=== PATIENT | male | born 1985 | race Caucasian/White ===

== ENCOUNTER 2016-03-07 23:21 | Emergency (ER) | payer OTHER ==
[~2016-03-07] VITALS: Ht 182.9 cm; Wt 86.0 kg
[~2016-03-07 23:21] MED LIST: ABIL5TAB6 PO; AMLO10 PO; CARV6.25 PO; DEPA500T3 PO; DIVA500T3 PO; ESCI10TA PO; IBUP-232 PO; QUET1TAB7 PO; QUET1TAB9 PO; WALKER/ADULT/FO1 MIS; WELL200T PO
[2016-03-07 23:23] VITALS: BP 162/100; PULSE 102; RESP 18; TEMP 98.1; O2SAT 99
[2016-03-08 03:19] LABS: BARBITURATES, URINE NEG (NEG)
[2016-03-08 03:22] LABS: AMPHETAMINE, URINE NEG (NEG); COCAINE, URINE NEG (NEG)
[2016-03-08 03:26] LABS: AUTOMATED NEUTROPHIL # 6.9 TH/MM3 (1.8-7.7); BASOPHIL # 0.1 TH/MM3 (0-0.2); BASOPHIL % 0.8 % (0.0-2.0); EOSINOPHIL # 0.3 TH/MM3 (0-0.4); EOSINOPHIL % 3.2 % (0.0-4.0); HEMO FLAGS DIFF FINAL; LYMPH % 23.7 % (9.0-44.0); LYMPHOCYTE # 2.5 TH/MM3 (1.0-4.8); MEAN CELL VOLUME 86.1 FL (80.0-100.0); MEAN CORPUSCULAR HEMOGLOBIN 29.7 PG (27.0-34.0); MEAN CORPUSCULAR HGB CONC 34.5 % (32.0-36.0); MONO % 6.3 % (0.0-8.0); PLATELET COUNT 316 TH/MM3 (150-450); RED BLOOD COUNT 4.99 MIL/MM3 (4.50-5.90); RED CELL DISTRIBUTION WIDTH 13.3 % (11.6-17.2); WHITE BLOOD COUNT 10.5 TH/MM3 (4.0-11.0)
[2016-03-08 03:30] LABS: ALT (GPT) 18 U/L (12-78); ANION GAP 10 MEQ/L (5-15); AST (GOT) 11 U/L (15-37); BICARBONATE 25.3 MEQ/L (21.0-32.0); BLOOD UREA NITROGEN 11 MG/DL (7-18); CHLORIDE 103 MEQ/L (98-107); GLOMERULAR FILTRATION RATE 64 ML/MIN (>89); POTASSIUM 3.8 MEQ/L (3.5-5.1); SODIUM (NA) 138 MEQ/L (136-145)
[2016-03-08 03:32] LABS: ALKALINE PHOSPHATASE 337 U/L (45-117); TOTAL BILIRUBIN ADULT 0.4 MG/DL (0.2-1.0)
[2016-03-08 03:52] VITALS: BP 151/91; PULSE 78; RESP 18; O2SAT 98
--- NOTE | 2016-03-08 04:28 | PD ---
HPI Chief Complaint: Depression Time Seen by Provider: 04:20 Travel History International Travel<30 days: No Contact w/Intl Traveler<30days: No Traveled to known affect area: No History of Present Illness HPI 30-year-old male presents for evaluation of depression, suicidal ideation. He has a history of depression. He has been feeling increasingly depressed over the past 2 days, having thoughts of jumping in front of a car. He reports that he is prescribed Depakote, Seroquel and he has been using as prescribed however he has no outpatient psychiatry follow-up at the moment. Denies any drug or alcohol use. Denies recent illness. No other complaints. PFSH Past Medical History Hx Anticoagulant Therapy: No ADHD: Yes Arthritis: No Autoimmune Disease: No Bipolar Disorder: Yes Anxiety: Yes Depression: Yes Heart Rhythm Problems: No Cancer: No Cardiovascular Problems: Yes (HTN) High Cholesterol: No Chemotherapy: No Chest Pain: No Congestive Heart Failure: No Cerebrovascular Accident: No Diabetes: No Diminished Hearing: No Genitourinary: No Headaches: No Hypertension: Yes Musculoskeletal: No Neurologic: No Psychiatric: Yes (Hx of treatment for Bipolar Disorder) Reproductive: No Respiratory: No Migraines: No Seizures: Yes Influenza Vaccination: No Past Surgical History Abdominal Surgery: No Cardiac Surgery: No Ear Surgery: No Endocrine Surgery: No Eye Surgery: No Genitourinary Surgery: No Gynecologic Surgery: No Hysterectomy: No Neurologic Surgery: No Oral Surgery: No Thoracic Surgery: No Other Surgery: Yes (pins in right femur ) Social History Alcohol Use: No Tobacco Use: Yes Substance Use: No Allergies-Medications (Allergen,Severity, Reaction): Coded Allergies: No Known Allergies (Verified , 03/08/16) Reported Meds & Prescriptions Reported Meds & Active Scripts Active Quetiapine (Quetiapine Fumarate) 200 Mg Tab 400 Mg PO HS Depakote ER (Divalproex Sodium) 500 Mg Jose 500 Mg PO BID Escitalopram (Escitalopram Oxalate) 10 Mg Tab 5 Mg PO DAILY Coreg (Carvedilol) 6.25 Mg Tab 6.25 Mg PO Q12HR Norvasc (Amlodipine Besylate) 10 Mg Tab 10 Mg PO DAILY 30 Days Reported Wellbutrin SR 12 HR (Bupropion HCl) 200 Mg Tab 200 Mg PO BID Review of Systems Except as stated in HPI: all other systems reviewed are Neg Physical Exam Narrative GENERAL: Well-developed well-nourished male in no acute distress resting complaint hospital bed SKIN: Warm and dry. HEAD: Atraumatic. Normocephalic. EYES: Pupils equal and round. No scleral icterus. No injection or drainage. ENT: No nasal bleeding or discharge. Mucous membranes pink and moist. NECK: Trachea midline. No JVD. CARDIOVASCULAR: Regular rate and rhythm. No murmur appreciated. RESPIRATORY: No accessory muscle use. Clear to auscultation. Breath sounds equal bilaterally. GASTROINTESTINAL: Abdomen soft, non-tender, nondistended. MUSCULOSKELETAL: No obvious deformities. No clubbing. No cyanosis. No edema. NEUROLOGICAL: Awake and alert. No obvious cranial nerve deficits. Motor grossly within normal limits. Normal speech. PSYCHIATRIC: Appropriate mood and affect; insight and judgment normal. Data Data Last Documented VS Vital Signs Date Time Temp Pulse Resp B/P Pulse Ox O2 Delivery O2 Flow Rate FiO2 03/08/16 03:52 78 18 151/91 98 Room Air 03/07/16 23:23 98.1 Orders Complete Blood Count With Diff (03/08/16 02:31) Comprehensive Metabolic Panel (03/08/16 02:31) Drug Screen, Random Urine (03/08/16 02:31) Alcohol (Ethanol) (03/08/16 02:31) Psych Screen (03/08/16 02:31) Lisinopril (Prinivil) (03/08/16 04:30) Labs Laboratory Tests Test 03/08/16 03/08/16 02:40 02:46 White Blood Count 10.5 TH/MM3 Red Blood Count 4.99 MIL/MM3 Hemoglobin 14.8 GM/DL Hematocrit 43.0 % Mean Corpuscular Volume 86.1 FL Mean Corpuscular Hemoglobin 29.7 PG Mean Corpuscular Hemoglobin 34.5 % Concent Red Cell Distribution Width 13.3 % Platelet Count 316 TH/MM3 Mean Platelet Volume 8.2 FL Neutrophils (%) (Auto) 66.0 % Lymphocytes (%) (Auto) 23.7 % Monocytes (%) (Auto) 6.3 % Eosinophils (%) (Auto) 3.2 % Basophils (%) (Auto) 0.8 % Neutrophils # (Auto) 6.9 TH/MM3 Lymphocytes # (Auto) 2.5 TH/MM3 Monocytes # (Auto) 0.7 TH/MM3 Eosinophils # (Auto) 0.3 TH/MM3 Basophils # (Auto) 0.1 TH/MM3 CBC Comment DIFF FINAL Differential Comment Sodium Level 138 MEQ/L Potassium Level 3.8 MEQ/L Chloride Level 103 MEQ/L Carbon Dioxide Level 25.3 MEQ/L Anion Gap 10 MEQ/L Blood Urea Nitrogen 11 MG/DL Creatinine 1.30 MG/DL Estimat Glomerular Filtration 64 ML/MIN Rate Random Glucose 119 MG/DL Calcium Level 8.5 MG/DL Total Bilirubin 0.4 MG/DL Aspartate Amino Transf 11 U/L (AST/SGOT) Alanine Aminotransferase 18 U/L (ALT/SGPT) Alkaline Phosphatase 337 U/L Total Protein 7.2 GM/DL Albumin 3.5 GM/DL Ethyl Alcohol Level LESS THAN 3 MG/DL Urine Opiates Screen NEG Urine Barbiturates Screen NEG Urine Amphetamines Screen NEG Urine Benzodiazepines Screen NEG Urine Cocaine Screen NEG Urine Cannabinoids Screen NEG MDM Medical Decision Making Medical Screen Exam Complete: Yes Emergency Medical Condition: Yes Medical Record Reviewed: Yes Differential Diagnosis Major depressive disorder, acute psychosis, medication noncompliance, malingering, substance induced mood disorder Narrative Course 30-year-old male presents voluntarily for psychiatric evaluation of suicidal ideation. Mental health screening discussed with the patient. Psychiatric screen ordered. The patient is medically cleared for psychiatric disposition Diagnosis Primary Impression: Depression Qualified Code: F32.9 - Depression, unspecified depression type Emir Zeng Mar 08, 2016 04:28
[2016-03-08] MEDS ORDERED: LISINOPRIL 5 MG TAB PO ONE (04:30)
[2016-03-08 08:00] VITALS: BP 130/81; PULSE 76; RESP 16; TEMP 98.2; O2SAT 99
== END 2016-03-08 10:03 | disposition left against medical advice (07) ==
LOC: NEPA 23:21
DX: F32.9 Major depressive disorder, single episode, unspecified (principal)
CPT/HCPCS: 80053; 80307; 80320; 85025; 99284

== ENCOUNTER 2016-06-02 13:25 | Emergency (ER) | payer OTHER ==
[~2016-06-02] VITALS: Ht 177.8 cm; Wt 85.0 kg
[~2016-06-02 13:25] MED LIST changes: -ABIL5TAB6 PO; -DIVA500T3 PO; -IBUP-232 PO; -QUET1TAB7 PO; -WALKER/ADULT/FO1 MIS
[2016-06-02 13:27] VITALS: BP 132/88; PULSE 88; RESP 20; TEMP 97.4; O2SAT 95
--- NOTE | 2016-06-02 15:15 | PD ---
HPI Chief Complaint: Suicide Ideation/Attempt Time Seen by Provider: 15:15 Travel History International Travel<30 days: No Contact w/Intl Traveler<30days: No Traveled to known affect area: No History of Present Illness HPI 30-year-old male with a history of bipolar disorder and depression presents to the emergency department requesting psychiatric evaluation. States that he has had suicidal ideations. States he is taking psych medications but is unsure if they're working for him. He denies any attempts to harm himself. Denies any ingestion of substances in an attempt to harm himself. He denies any medical complaints. Denies alcohol or drug use. Denies any chest pain, shortness of breath, abdominal pain, nausea, vomiting, headache, dizziness. No obvious or visual hallucinations. No other complaints. PFSH Past Medical History Hx Anticoagulant Therapy: No ADHD: Yes Arthritis: No Autoimmune Disease: No Bipolar Disorder: Yes Anxiety: Yes Depression: Yes Heart Rhythm Problems: No Cancer: No Cardiovascular Problems: Yes (HTN) High Cholesterol: No Chemotherapy: No Chest Pain: No Congestive Heart Failure: No Cerebrovascular Accident: No Diabetes: No Diminished Hearing: No Genitourinary: No Headaches: No Hypertension: Yes Musculoskeletal: No Neurologic: No Psychiatric: Yes (Hx of treatment for Bipolar Disorder) Reproductive: No Respiratory: No Migraines: No Seizures: Yes Past Surgical History Abdominal Surgery: No Cardiac Surgery: No Ear Surgery: No Endocrine Surgery: No Eye Surgery: No Genitourinary Surgery: No Gynecologic Surgery: No Hysterectomy: No Neurologic Surgery: No Oral Surgery: No Thoracic Surgery: No Other Surgery: Yes (pins in right femur ) Social History Alcohol Use: No Tobacco Use: Yes Substance Use: No Allergies-Medications (Allergen,Severity, Reaction): Coded Allergies: No Known Allergies (Verified , 03/08/16) Reported Meds & Prescriptions Reported Meds & Active Scripts Active Quetiapine (Quetiapine Fumarate) 200 Mg Tab 400 Mg PO HS Depakote ER (Divalproex Sodium) 500 Mg Jose 500 Mg PO BID Escitalopram (Escitalopram Oxalate) 10 Mg Tab 5 Mg PO DAILY Coreg (Carvedilol) 6.25 Mg Tab 6.25 Mg PO Q12HR Norvasc (Amlodipine Besylate) 10 Mg Tab 10 Mg PO DAILY 30 Days Reported Wellbutrin SR 12 HR (Bupropion HCl) 200 Mg Tab 200 Mg PO BID Review of Systems Except as stated in HPI: all other systems reviewed are Neg Physical Exam Narrative GENERAL: Well-nourished and well-developed male patient in no acute distress who is nontoxic appearing. SKIN: Warm and dry. HEAD: Normocephalic and atraumatic. EYES: No injection, drainage, or hyphema noted. PERRLA. EOMI. ENT: No nasal drainage noted. Oropharynx is clear. NECK: Supple and the trachea is midline. CARDIOVASCULAR: Regular rate and rhythm. RESPIRATORY: Breath sounds are equal bilaterally with no accessory muscle use, wheezing, rhonchi, or crackles. GASTROINTESTINAL: Abdomen is soft, non-tender, and nondistended. MUSCULOSKELETAL: No obvious deformities, swelling, cyanosis, or ecchymosis is present throughout the upper and lower extremities. Patient has full range of motion without any signs of neurovascular compromise. NEUROLOGICAL: Awake, alert, and oriented. Normal speech and gait. Cranial nerves are grossly intact. Data Data Last Documented VS Vital Signs Date Time Temp Pulse Resp B/P Pulse Ox O2 Delivery O2 Flow Rate FiO2 06/02/16 13:27 97.4 88 20 132/88 95 Room Air Orders Complete Blood Count With Diff (06/02/16 14:17) Comprehensive Metabolic Panel (06/02/16 14:17) Psych Screen (06/02/16 14:17) Drug Screen, Random Urine (06/02/16 14:17) Alcohol (Ethanol) (06/02/16 14:17) Diet Regular Basic (06/02/16 Dinner) [facility] Medical Decision Making Medical Screen Exam Complete: Yes Emergency Medical Condition: Yes Differential Diagnosis Differential: Depression versus adjustment reaction versus anxiety versus PTSD versus psychosis NOS versus mood disorder NOS versus substance induced mood disorder versus ODD versus adjustment reaction versus schizophrenia versus bipolar disorder versus schizoaffective Narrative Course Patient presents voluntarily for psychiatric evaluation. Physical examination and vital signs are essentially unremarkable. Patient has no medical complaints to report. Psych screen has been ordered. If the laboratory results are unremarkable, the patient will be medically cleared for psychiatric evaluation and disposition. Diagnosis Primary Impression: Depression Qualified Code: F32.9 - Depression, unspecified depression type Yelena Huerta Jun 02, 2016 15:15
--- NOTE | 2016-06-02 15:28 | PD ---
History of Present Illness Chief Complaint: Suicide Ideation/Attempt Time Seen by Provider: 15:15 Travel History International Travel<30 Days: No Contact w/Intl Traveler<30days: No Known affected area: No Legal Status Legal Status: Voluntary History of Present Illness: History of Present Illness HPI 30-year-old male with a history of bipolar disorder and substance use disorder who presents to the emergency department as a voluntary patient requesting psychiatric evaluation. He report that for the past 2 days he has been experiencing increase in suicidal ideation with plan of jumping in front of traffic. He reports feeling depressed with sleep impairment, reduced appetite and low level of energy. He is unable to identify any recent stressors. He provides conflicting information as to his psychiatric medication compliance. As per ED documentation he is currently taking his medications but he tells me he has not had medication in over 2 months and that he stopped his treatment because he felt he did not need it. He denies any attempts to harm himself. Denies any ingestion of substances in an attempt to harm himself. Denies alcohol or drug use and lab work is pending . EMR is reviewed. He presented to ED with complaints of depression on Mar 2016 but left AMA before a psychiatric screening was completed. His last psychiatric admission to [facility] was on January 152015 after an alleged suicide attempt by jumping in front of traffic in which he sustained several physical injuries. However Dr. Morrissey was asked to evaluate this patient after the accident to determine if the accident was a suicide attempt the patient denied that the accident was a suicide attempt and reported it was an unexpected accident. He then later reported that the accident was a suicide attempt. PFSH Past Medical History Hx Anticoagulant Therapy: No ADHD: Yes Arthritis: No Autoimmune Disease: No Bipolar Disorder: Yes Anxiety: Yes Depression: Yes Heart Rhythm Problems: No Cancer: No Cardiovascular Problems: Yes (HTN) High Cholesterol: No Chemotherapy: No Chest Pain: No Congestive Heart Failure: No Cerebrovascular Accident: No Diabetes: No Diminished Hearing: No Genitourinary: No Headaches: No Hypertension: Yes Musculoskeletal: No Neurologic: No Psychiatric: Yes (Hx of treatment for Bipolar Disorder) Reproductive: No Respiratory: No Migraines: No Seizures: Yes Past Surgical History Abdominal Surgery: No Cardiac Surgery: No Ear Surgery: No Endocrine Surgery: No Eye Surgery: No Genitourinary Surgery: No Gynecologic Surgery: No Hysterectomy: No Neurologic Surgery: No Oral Surgery: No Thoracic Surgery: No Other Surgery: Yes (pins in right femur ) Psychiatric History Psychiatric History Hx Psychiatric Treatment: Pt states he has a history of inpatient psychiatric hospitalizations through [facility] and [facility]. He repors a history of outpatient psychiatric services through [facility] though he has mixed compliance with appointments and medication as he states he stops when he "feels better". Pt states he does not feel his medication is working at this time. History of Inpatient Treatment: Yes Guns or firearms in home: No Social History Single male. Living at [facility]. Hx Alcohol Use: No Hx Tobacco Use: Yes Hx Substance Use: No Substance Use Type: Alcohol, Huffing, Other Other Substances Used: smoking 'K2' Hx of Substance Use Treatment: No Allergies-Medications (Allergen,Severity, Reaction): Coded Allergies: No Known Allergies (Verified , 03/08/16) Reported Meds & Prescriptions Reported Meds & Active Scripts Active Quetiapine (Quetiapine Fumarate) 200 Mg Tab 400 Mg PO HS Depakote ER (Divalproex Sodium) 500 Mg Jose 500 Mg PO BID Escitalopram (Escitalopram Oxalate) 10 Mg Tab 5 Mg PO DAILY Coreg (Carvedilol) 6.25 Mg Tab 6.25 Mg PO Q12HR Norvasc (Amlodipine Besylate) 10 Mg Tab 10 Mg PO DAILY 30 Days Reported Wellbutrin SR 12 HR (Bupropion HCl) 200 Mg Tab 200 Mg PO BID Review of Systems Constitutional: DENIES: Diaphoretic episodes, Fatigue, Fever, Weight gain, Weight loss, Chills, Dizziness, Change in appetite, Night Sweats Endocrine: DENIES: Heat/cold intolerance, Polydipsia, Polyuria, Polyphagia Ears, nose, mouth, throat: DENIES: Tinnitus, Hearing loss, Vertigo, Nasal discharge, Oral lesions, Throat pain, Hoarseness, Ear Pain, Running Nose, Epistaxis, Sinus Pain, Toothache, Odynophagia Cardiovascular: DENIES: Chest pain, Palpitations, Syncope, Dyspnea on Exertion , PND, Lower Extremity Edema, Orthopnea, Claudication Gastrointestinal: DENIES: Abdominal pain, Black stools, Bloody stools, Constipation, Diarrhea, Nausea, Vomiting, Difficulty Swallowing, Anorexia Genitourinary: DENIES: Sexual dysfunction, Urinary frequency, Urinary incontinence, Urgency, Hematuria, Dysuria, Nocturia, Penile Discharge, Testicular Pain, Testicular Swelling Musculoskeletal: COMPLAINS OF: Back pain, DENIES: Joint pain, Muscle aches, Stiffness, Joint Swelling, Neck pain Integumentary: DENIES: Abnormal pigmentation, Nail changes, Pruritus, Rash Hematologic/lymphatic: DENIES: Bruising, Lymphadenopathy Immunologic/allergic: DENIES: Eczema, Urticaria Neurologic: DENIES: Abnormal gait, Headache, Localized weakness, Paresthesias, Seizures, Speech Problems, Tremor, Poor Balance Psychiatric: COMPLAINS OF: Depression, Suicidal Ideation Exam Alert: Yes [place]: Person (ox4) Mood: Depressed Affect: Appropriate Speech: Clear, Logical Eye Contact: None (kept his head bowed) Memory Intact: Comment (no impairment) Hallucinations: Other (negative) Delusions: No Suicidal: Plan (to jump in front of traffic), Ideation Homicidal: Ideation (deneis) Insight/Judgement poor. poor MDM Medical Decision Making Medical Record Reviewed: Yes Assessment/Plan 30 year old male with hx of bipolar disorder and substance use disorder who presents voluntarily to [facility] with complaints of suicidal ideation with plan of jumping in front of traffic. He also reports increase in depression x 2 days. He stopped taking his medications 2 months ago. He denies any current drug use and toxicology is pending . At this time he will be placed on wait list for [facility] for treatment. 1900 Lab work resulted. Positive for cocaine and cannabinoid. Orders Complete Blood Count With Diff (06/02/16 14:17) Comprehensive Metabolic Panel (06/02/16 14:17) Psych Screen (06/02/16 14:17) Drug Screen, Random Urine (06/02/16 14:17) Alcohol (Ethanol) (06/02/16 14:17) Diet Regular Basic (06/02/16 Dinner) Results Vital Signs Date Time Temp Pulse Resp B/P Pulse Ox O2 Delivery O2 Flow Rate FiO2 06/02/16 13:27 97.4 88 20 132/88 95 Room Air Diagnosis Primary Impression: Bipolar disorder, most recent episode depressed Louann Stevens Jun 02, 2016 15:28
[2016-06-02 17:36] LABS: AUTOMATED NEUTROPHIL # 4.7 TH/MM3 (1.8-7.7); BASOPHIL # 0.1 TH/MM3 (0-0.2); BASOPHIL % 1.6 % (0.0-2.0); EOSINOPHIL # 0.9 TH/MM3 (0-0.4); EOSINOPHIL % 9.9 % (0.0-4.0); HEMATOCRIT 44.8 % (39.0-51.0); HEMO FLAGS DIFF FINAL; LYMPHOCYTE # 2.6 TH/MM3 (1.0-4.8); MEAN CELL VOLUME 86.1 FL (80.0-100.0); MEAN CORPUSCULAR HEMOGLOBIN 29.3 PG (27.0-34.0); MEAN CORPUSCULAR HGB CONC 34.1 % (32.0-36.0); MONO % 9.4 % (0.0-8.0); NEUT % 51.1 % (16.0-70.0); PLATELET COUNT 246 TH/MM3 (150-450); RED CELL DISTRIBUTION WIDTH 13.7 % (11.6-17.2); WHITE BLOOD COUNT 9.1 TH/MM3 (4.0-11.0)
[2016-06-02 17:40] LABS: AMPHETAMINE, URINE NEG (NEG); BARBITURATES, URINE NEG (NEG); COCAINE, URINE POS (NEG)
[2016-06-02 17:49] LABS: ALT (GPT) 23 U/L (12-78); ANION GAP 4 MEQ/L (5-15); AST (GOT) 19 U/L (15-37); BICARBONATE 32.2 MEQ/L (21.0-32.0); BLOOD UREA NITROGEN 15 MG/DL (7-18); CHLORIDE 106 MEQ/L (98-107); GLOMERULAR FILTRATION RATE 74 ML/MIN (>89); POTASSIUM 4.1 MEQ/L (3.5-5.1); SODIUM (NA) 142 MEQ/L (136-145)
[2016-06-02 17:52] LABS: ALKALINE PHOSPHATASE 124 U/L (45-117); TOTAL BILIRUBIN ADULT 0.3 MG/DL (0.2-1.0)
[2016-06-02 19:44] VITALS: BP 131/92; PULSE 83; RESP 17; O2SAT 96
[2016-06-03 02:01] VITALS: BP 139/99; PULSE 64; RESP 18; O2SAT 97
[2016-06-03 06:19] VITALS: BP_SYST 138; BP_DIAS 86; BP_DIAS 92; PULSE 74; RESP 18; TEMP 97.6; O2SAT 97
[2016-06-03 10:43] VITALS: BP 140/87; PULSE 68; RESP 18; O2SAT 98
--- NOTE | 2016-06-03 14:57 | HHI.PYPN ---
Subjective Remarks Patient seen and examined. Chart reviewed. Nurse practitioner Rodney's note reviewed. Case discussed with nurse in the [facility]. There has been no evidence of any suicidal or homicidal behavior while the patient has been under observation in the [facility], over 24 hours at this point. On my examination today , the patient admits that he malingered suicidal ideation saying "I came here because [facility] me to say I was suicidal to get detoxed. I'm not fucking suicidal." Patient denies any suicidal or homicidal ideation. Denies any audiovisual hallucinations. I can elicit no delusional beliefs. No depressive or hypomanic/manic symptoms. No reported withdrawal symptoms at this time. Review of Systems Except as stated in HPI: all other systems reviewed are Neg Objective Alert: Yes [place]: Person (once again ox4) Mood: Calm Affect: Appropriate Memory Intact: Comment (intact) Hallucinations: Other (denies AVH) Delusions: No Delusion Type: Other (no delusional material) Suicidal: Ideation (denies suicidal ideation, intent or plan) Homicidal: Ideation (denies homicidal ideation, intent or plan) Insight/Judgement Fair at best Remarks Thought process linear. Speech within normal limits for rate, tone and volume. No motor abnormalities noted. Labs Labs reviewed. Test 06/02/16 16:59 White Blood Count 9.1 TH/MM3 Red Blood Count 5.20 MIL/MM3 Hemoglobin 15.3 GM/DL Hematocrit 44.8 % Mean Corpuscular Volume 86.1 FL Mean Corpuscular Hemoglobin 29.3 PG Mean Corpuscular Hemoglobin 34.1 % Concent Red Cell Distribution Width 13.7 % Platelet Count 246 TH/MM3 Mean Platelet Volume 8.4 FL Neutrophils (%) (Auto) 51.1 % Lymphocytes (%) (Auto) 28.0 % Monocytes (%) (Auto) 9.4 % Eosinophils (%) (Auto) 9.9 % Basophils (%) (Auto) 1.6 % Neutrophils # (Auto) 4.7 TH/MM3 Lymphocytes # (Auto) 2.6 TH/MM3 Monocytes # (Auto) 0.9 TH/MM3 Eosinophils # (Auto) 0.9 TH/MM3 Basophils # (Auto) 0.1 TH/MM3 CBC Comment DIFF FINAL Differential Comment Sodium Level 142 MEQ/L Potassium Level 4.1 MEQ/L Chloride Level 106 MEQ/L Carbon Dioxide Level 32.2 MEQ/L Anion Gap 4 MEQ/L Blood Urea Nitrogen 15 MG/DL Creatinine 1.15 MG/DL Estimat Glomerular Filtration 74 ML/MIN Rate Random Glucose 83 MG/DL Calcium Level 8.5 MG/DL Total Bilirubin 0.3 MG/DL Aspartate Amino Transf 19 U/L (AST/SGOT) Alanine Aminotransferase 23 U/L (ALT/SGPT) Alkaline Phosphatase 124 U/L Total Protein 6.1 GM/DL Albumin 3.2 GM/DL Urine Opiates Screen NEG Urine Barbiturates Screen NEG Urine Amphetamines Screen NEG Urine Benzodiazepines Screen NEG Urine Cocaine Screen POS Urine Cannabinoids Screen POS Ethyl Alcohol Level LESS THAN 3 MG/DL Vitals/IOs Vital Signs Date Time Temp Pulse Resp B/P Pulse Ox O2 Delivery O2 Flow Rate FiO2 06/03/16 10:43 68 18 140/87 98 Room Air 06/03/16 06:19 97.6 Intake and Output 06/02/16 06/02/16 06/03/16 08:00 16:00 00:00 Output Total 320 ml Balance -320 ml Assessment & Plan Problem List: (1) Malingering ICD Code: Z76.5 (2) Polysubstance dependence ICD Code: F19.20 Assessment & Plan Patient admits to malingering suicidal ideation to obtain detoxification services. He now recants suicidal ideation. He denies suicidal or homicidal ideation, intent or plan at this time. No evidence of any unstable mood, anxiety or psychotic disorder in this patient at this time. He appears to be attending to his basic needs. Patient does not meet Vang act criteria. Patient does not require inpatient psychiatric hospitalization. Patient is requesting discharge from the ED. Patient is psychiatrically clear for discharge from the ED. Nurse to provide appropriate referrals. Patient to return to the psychiatric emergency room for any concerning psychiatric symptoms. Justification for Cont. Inpt. Psychiatrically clear for discharge from the ED. Daryl Cabrera MD Jun 03, 2016 14:57
== END 2016-06-03 16:49 | disposition home or self-care (01) ==
LOC: NEPJ 13:25
DX: F31.9 Bipolar disorder, unspecified (principal); Z79.899 Other long term (current) drug therapy
CPT/HCPCS: 80053; 80307; 85025; 99283

== ENCOUNTER 2016-06-23 15:53 | Emergency (ER) | payer OTHER ==
[~2016-06-23] VITALS: Ht 182.9 cm; Wt 90.0 kg
[2016-06-23 17:13] VITALS: BP 136/89; PULSE 83; RESP 18; TEMP 97.9; O2SAT 99
[2016-06-23 18:05] LABS: AUTOMATED NEUTROPHIL # 9.1 TH/MM3 (1.8-7.7); BASOPHIL % 0.4 % (0.0-2.0); EOSINOPHIL # 0.2 TH/MM3 (0-0.4); EOSINOPHIL % 1.9 % (0.0-4.0); HEMATOCRIT 49.1 % (39.0-51.0); HEMO FLAGS DIFF FINAL; LYMPH % 13.9 % (9.0-44.0); LYMPHOCYTE # 1.6 TH/MM3 (1.0-4.8); MEAN CELL VOLUME 87.6 FL (80.0-100.0); MEAN CORPUSCULAR HEMOGLOBIN 29.7 PG (27.0-34.0); MEAN CORPUSCULAR HGB CONC 33.9 % (32.0-36.0); NEUT % 78.8 % (16.0-70.0); PLATELET COUNT 235 TH/MM3 (150-450); RED BLOOD COUNT 5.61 MIL/MM3 (4.50-5.90); RED CELL DISTRIBUTION WIDTH 13.5 % (11.6-17.2); WHITE BLOOD COUNT 11.5 TH/MM3 (4.0-11.0)
--- NOTE | 2016-06-23 18:21 | PD ---
HPI Chief Complaint: Psychiatric Symptoms Time Seen by Provider: 17:20 Travel History International Travel<30 days: No Contact w/Intl Traveler<30days: No Traveled to known affect area: No History of Present Illness HPI Patient is a 30-year-old male brought in to emergency Department under Vang act for suicidal ideations. Patient was observed on a [employer] bus inhaling mcdaniel board pin cleaner. Patient isn't need of detox due to crack cocaine. He reported to the police that he is having suicidal thoughts coming off of the narcotic medications he was abusing. Patient reported that he has not had any crack cocaine in 10 days on the Vang act form he stated 5 days. Patient verbalized to me that he told them he was suicidal so that he did not go have to go to snf. Patient has a previous suicide attempt last year. He denies any suicidal or homicidal ideations at this time. He denies any visual auditory hallucinations. He does report a history of schizoaffective bipolar disorder type II. PFSH Past Medical History Hx Anticoagulant Therapy: No ADHD: Yes Arthritis: No Autoimmune Disease: No Bipolar Disorder: Yes Anxiety: Yes Depression: Yes Heart Rhythm Problems: No Cancer: No Cardiovascular Problems: Yes (HTN) High Cholesterol: No Chemotherapy: No Chest Pain: No Congestive Heart Failure: No Cerebrovascular Accident: No Diabetes: No Diminished Hearing: No Genitourinary: No Headaches: No Hypertension: Yes Implanted Vascular Access Dvce: Yes (INFUSAPORT RT CHEST/LT HAND OSTEOMYL) Musculoskeletal: Yes Neurologic: No Psychiatric: Yes Reproductive: No Respiratory: No Migraines: No Seizures: Yes Tetanus Vaccination: < 5 Years Influenza Vaccination: Yes Past Surgical History Abdominal Surgery: No Cardiac Surgery: No Ear Surgery: No Endocrine Surgery: No Eye Surgery: No Genitourinary Surgery: No Gynecologic Surgery: No Hysterectomy: No Joint Replacement: Yes (RT FEMUR) Neurologic Surgery: No Oral Surgery: No Thoracic Surgery: No Other Surgery: Yes (pins in right femur ) Social History Alcohol Use: No Tobacco Use: Yes (1PPD) Substance Use: Yes Allergies-Medications (Allergen,Severity, Reaction): Coded Allergies: Bee Sting (Verified Allergy, Unknown, 06/23/16) Reported Meds & Prescriptions Reported Meds & Active Scripts Active Quetiapine (Quetiapine Fumarate) 200 Mg Tab 400 Mg PO HS Depakote ER (Divalproex Sodium) 500 Mg Jose 500 Mg PO BID Escitalopram (Escitalopram Oxalate) 10 Mg Tab 5 Mg PO DAILY Coreg (Carvedilol) 6.25 Mg Tab 6.25 Mg PO Q12HR Norvasc (Amlodipine Besylate) 10 Mg Tab 10 Mg PO DAILY 30 Days Reported Wellbutrin SR 12 HR (Bupropion HCl) 200 Mg Tab 200 Mg PO BID Review of Systems Except as stated in HPI: all other systems reviewed are Neg Psychiatric: Positive: Suicidal Ideations, Mood Disorder, Substance Abuse Physical Exam Narrative GENERAL: Well-developed, well-nourished, alert male. Resting comfortably in no acute distress. SKIN: Focused skin assessment warm/dry. HEAD: Atraumatic. Normocephalic. EYES: Pupils equal and round. No scleral icterus. No injection or drainage. ENT: No nasal bleeding or discharge. Mucous membranes pink and moist. NECK: Trachea midline. No JVD. CARDIOVASCULAR: Regular rate and rhythm. No murmur appreciated. RESPIRATORY: No accessory muscle use. Clear to auscultation. Breath sounds equal bilaterally. GASTROINTESTINAL: Abdomen soft, non-tender, nondistended. Hepatic and splenic margins not palpable. MUSCULOSKELETAL: No obvious deformities. No clubbing. No cyanosis. No edema. NEUROLOGICAL: Awake and alert. No obvious cranial nerve deficits. Motor grossly within normal limits. Normal speech. PSYCHIATRIC: Flat mood and affect; insight and judgment normal. Data Data Last Documented VS Vital Signs Date Time Temp Pulse Resp B/P Pulse Ox O2 Delivery O2 Flow Rate FiO2 06/23/16 17:13 97.9 83 18 136/89 99 Orders Complete Blood Count With Diff (06/23/16 17:21) Comprehensive Metabolic Panel (06/23/16 17:21) Psych Screen (06/23/16 17:21) Drug Screen, Random Urine (06/23/16 17:21) Alcohol (Ethanol) (06/23/16 17:21) Salicylates (Aspirin) (06/23/16 17:21) Tylenol (Acetaminophen) (06/23/16 17:21) Diet Regular Basic (06/23/16 Dinner) Labs Laboratory Tests Test 06/23/16 06/23/16 17:36 17:51 Urine Opiates Screen NEG Urine Barbiturates Screen NEG Urine Amphetamines Screen NEG Urine Benzodiazepines Screen NEG Urine Cocaine Screen NEG Urine Cannabinoids Screen NEG White Blood Count 11.5 TH/MM3 Red Blood Count 5.61 MIL/MM3 Hemoglobin 16.7 GM/DL Hematocrit 49.1 % Mean Corpuscular Volume 87.6 FL Mean Corpuscular Hemoglobin 29.7 PG Mean Corpuscular Hemoglobin 33.9 % Concent Red Cell Distribution Width 13.5 % Platelet Count 235 TH/MM3 Mean Platelet Volume 9.0 FL Neutrophils (%) (Auto) 78.8 % Lymphocytes (%) (Auto) 13.9 % Monocytes (%) (Auto) 5.0 % Eosinophils (%) (Auto) 1.9 % Basophils (%) (Auto) 0.4 % Neutrophils # (Auto) 9.1 TH/MM3 Lymphocytes # (Auto) 1.6 TH/MM3 Monocytes # (Auto) 0.6 TH/MM3 Eosinophils # (Auto) 0.2 TH/MM3 Basophils # (Auto) 0.0 TH/MM3 CBC Comment DIFF FINAL Differential Comment Sodium Level 140 MEQ/L Potassium Level 4.4 MEQ/L Chloride Level 105 MEQ/L Carbon Dioxide Level 30.4 MEQ/L Anion Gap 5 MEQ/L Blood Urea Nitrogen 12 MG/DL Creatinine 1.25 MG/DL Estimat Glomerular Filtration 67 ML/MIN Rate Random Glucose 101 MG/DL Calcium Level 8.6 MG/DL Total Bilirubin 0.3 MG/DL Aspartate Amino Transf 16 U/L (AST/SGOT) Alanine Aminotransferase 25 U/L (ALT/SGPT) Alkaline Phosphatase 131 U/L Total Protein 7.1 GM/DL Albumin 3.6 GM/DL Salicylates Level LESS THAN 1.7 MG/DL Acetaminophen Level LESS THAN 2.0 MCG/ML Ethyl Alcohol Level LESS THAN 3 MG/DL MDM Medical Decision Making Medical Screen Exam Complete: Yes Emergency Medical Condition: Yes Interpretation(s) Vital Signs Date Time Temp Pulse Resp B/P Pulse Ox O2 Delivery O2 Flow Rate FiO2 06/23/16 17:13 97.9 83 18 136/89 99 Differential Diagnosis Mood disorder versus substance abuse versus suicidal ideations versus malingering versus other Narrative Course Patient is a 30-year-old male brought into the emergency department under Vang act for suicidal ideations. Patient is other physical complaints, vital signs are stable. Labs reviewed and are unremarkable. Urine drug screen is negative. Patient is medically cleared for psychiatric evaluation at this time. Diagnosis Primary Impression: Medical clearance for psychiatric admission Condition: Stable Nena SmithP Jun 23, 2016 18:21
[2016-06-23 18:29] LABS: ALT (GPT) 25 U/L (12-78); ANION GAP 5 MEQ/L (5-15); AST (GOT) 16 U/L (15-37); BICARBONATE 30.4 MEQ/L (21.0-32.0); BLOOD UREA NITROGEN 12 MG/DL (7-18); CHLORIDE 105 MEQ/L (98-107); GLOMERULAR FILTRATION RATE 67 ML/MIN (>89); POTASSIUM 4.4 MEQ/L (3.5-5.1); SODIUM (NA) 140 MEQ/L (136-145)
[2016-06-23 18:32] LABS: ACETAMINOPHEN LESS THAN 2.0 MCG/ML (10.0-30.0); ALKALINE PHOSPHATASE 131 U/L (45-117); TOTAL BILIRUBIN ADULT 0.3 MG/DL (0.2-1.0)
[2016-06-23 18:32] LABS: AMPHETAMINE, URINE NEG (NEG); BARBITURATES, URINE NEG (NEG); COCAINE, URINE NEG (NEG)
[2016-06-23 22:16] VITALS: BP 155/87; PULSE 77; RESP 19; O2SAT 98
[2016-06-24 10:14] VITALS: RESP 18
--- NOTE | 2016-06-24 11:28 | PD ---
History of Present Illness Chief Complaint: Psychiatric Symptoms Time Seen by Provider: 11:00 Travel History International Travel<30 Days: No Contact w/Intl Traveler<30days: No Known affected area: No Legal Status Legal Status: Vang Act Vang Act Signed By: Staci Mackey History of Present Illness: History of Present Illness HPI Patient is a 30-year-old male with history of bipolar disorder as well as substance use disorder who is brought in to emergency Department under Vang act initiated by [facility] for suicidal ideations. As per the report he was observed on a [employer] bus inhaling keyboard service line bus cleaner. He reported to the police that he is having suicidal thoughts coming off of the narcotic medications he was abusing. As per Ed documentation he admitted to ED provider that "he told them he was suicidal so that he did not go have to go to penitentiary" . Patient was discharged from [facility] on the morning that he was BA. [place]EN[place]. Patient was last evaluated by [facility] psychiatric dept on June 02, 2016 and his last hospitalization at [facility] was on Jan 15, 2017. Patient's current toxicology is positive for cannabinoids as well as cocaine. Patient was monitored in J pod and he presented no behavioral concerns and no suicidality. This morning he is alert and oriented. Speech is clear and logical. Once again he is consistent with stating " last night I had to tell the surgical endoscopist I was suicidal so that he would not take me to penitentiary. I am sorry I gave the nurse a hard time". He admits to using inhalants. He is requesting discharge as he has a place at [facility] where he has been for the last 2 months. At this time the patient does not present any hypomania or psychosis and no suicidal ideation. PFSH Past Medical History Hx Anticoagulant Therapy: No ADHD: Yes Arthritis: No Autoimmune Disease: No Bipolar Disorder: Yes Anxiety: Yes Depression: Yes Heart Rhythm Problems: No Cancer: No Cardiovascular Problems: Yes (HTN) High Cholesterol: No Chemotherapy: No Chest Pain: No Congestive Heart Failure: No Cerebrovascular Accident: No Diabetes: No Diminished Hearing: No Genitourinary: No Headaches: No Hypertension: Yes Implanted Vascular Access Dvce: Yes (INFUSAPORT RT CHEST/LT HAND OSTEOMYL) Musculoskeletal: Yes Neurologic: No Psychiatric: Yes Reproductive: No Respiratory: No Migraines: No Seizures: Yes Tetanus Vaccination: < 5 Years Influenza Vaccination: Yes Past Surgical History Abdominal Surgery: No Cardiac Surgery: No Ear Surgery: No Endocrine Surgery: No Eye Surgery: No Genitourinary Surgery: No Gynecologic Surgery: No Hysterectomy: No Joint Replacement: Yes (RT FEMUR) Neurologic Surgery: No Oral Surgery: No Thoracic Surgery: No Other Surgery: Yes (pins in right femur ) Psychiatric History Psychiatric History Hx Psychiatric Treatment: Pt states he has a history of inpatient psychiatric hospitalizations through [facility] and [facility]. He reporst a history of outpatient psychiatric services through [facility] . History of Inpatient Treatment: Yes Guns or firearms in home: No Social History Single male. Lives in [facility]. Hx Alcohol Use: No Hx Tobacco Use: Yes (1PPD) Hx Substance Use: Yes Substance Use Type: Alcohol, Huffing, Other Other Substances Used: HAS A HISTORY OF SUBSTANCE ABUSE Hx of Substance Use Treatment: Yes Family Psychiatric History none Allergies-Medications (Allergen,Severity, Reaction): Coded Allergies: Bee Sting (Verified Allergy, Unknown, 06/23/16) Reported Meds & Prescriptions Reported Meds & Active Scripts Active Quetiapine (Quetiapine Fumarate) 200 Mg Tab 400 Mg PO HS Depakote ER (Divalproex Sodium) 500 Mg Jose 500 Mg PO BID Reported Wellbutrin SR 12 HR (Bupropion HCl) 200 Mg Tab 200 Mg PO BID Review of Systems Except as stated in HPI: all other systems reviewed are Neg Exam Alert: Yes [place]: Person (ox4) Mood: Calm Affect: Appropriate Speech: Clear, Logical Eye Contact: Normal Memory Intact: Comment (no impairmetn) Hallucinations: Other (none) Delusions: No Suicidal: Ideation (denies any) Homicidal: Ideation (denies any) Insight/Judgement poor. poor. [facility] Medical Decision Making Medical Record Reviewed: Yes Assessment/Plan 30 year old male with hx of substance abuse as well as bipolar disorder who is under a BA as a result of having been seen inhaling keyboard service line bus cleaner while on a public bus. he admits to having lied to the police in order to avoid legal action. Patient has no suicidal ideation and does not meet BA criteria. he is requesting discharge . Will lift BA. Return to [facility]. Orders Complete Blood Count With Diff (06/23/16 17:21) Comprehensive Metabolic Panel (06/23/16 17:21) Psych Screen (06/23/16 17:21) Drug Screen, Random Urine (06/23/16 17:21) Alcohol (Ethanol) (06/23/16 17:21) Salicylates (Aspirin) (06/23/16 17:21) Tylenol (Acetaminophen) (06/23/16 17:21) Diet Regular Basic (06/23/16 Dinner) Diet Regular Basic (06/24/16 Breakfast) Diet Regular Basic (06/24/16 Lunch) Results Vital Signs Date Time Temp Pulse Resp B/P Pulse Ox O2 Delivery O2 Flow Rate FiO2 06/24/16 10:14 18 Room Air 06/23/16 22:16 77 19 155/87 98 06/23/16 17:13 97.9 83 18 136/89 99 Laboratory Tests Test 06/23/16 06/23/16 17:36 17:51 Urine Opiates Screen NEG Urine Barbiturates Screen NEG Urine Amphetamines Screen NEG Urine Benzodiazepines Screen NEG Urine Cocaine Screen NEG Urine Cannabinoids Screen NEG White Blood Count 11.5 Red Blood Count 5.61 Hemoglobin 16.7 Hematocrit 49.1 Mean Corpuscular Volume 87.6 Mean Corpuscular Hemoglobin 29.7 Mean Corpuscular Hemoglobin 33.9 Concent Red Cell Distribution Width 13.5 Platelet Count 235 Mean Platelet Volume 9.0 Neutrophils (%) (Auto) 78.8 Lymphocytes (%) (Auto) 13.9 Monocytes (%) (Auto) 5.0 Eosinophils (%) (Auto) 1.9 Basophils (%) (Auto) 0.4 Neutrophils # (Auto) 9.1 Lymphocytes # (Auto) 1.6 Monocytes # (Auto) 0.6 Eosinophils # (Auto) 0.2 Basophils # (Auto) 0.0 CBC Comment DIFF FINAL Differential Comment Sodium Level 140 Potassium Level 4.4 Chloride Level 105 Carbon Dioxide Level 30.4 Anion Gap 5 Blood Urea Nitrogen 12 Creatinine 1.25 Estimat Glomerular Filtration 67 Rate Random Glucose 101 Calcium Level 8.6 Total Bilirubin 0.3 Aspartate Amino Transf 16 (AST/SGOT) Alanine Aminotransferase 25 (ALT/SGPT) Alkaline Phosphatase 131 Total Protein 7.1 Albumin 3.6 Salicylates Level LESS THAN 1.7 Acetaminophen Level LESS THAN 2.0 Ethyl Alcohol Level LESS THAN 3 Diagnosis Primary Impression: Substance abuse Additional Impression: Malingering Psychiatrically Cleared: Yes Med/ Other Pt Specific Info: No Change to Meds Disposition: 01 DISCHARGE HOME Condition: Stable Problem Qualifiers Louann Stevens Jun 24, 2016 11:28
== END 2016-06-24 13:21 | disposition home or self-care (01) ==
LOC: NEDAMB 15:53 → NEPJ 06-24 13:21
DX: F18.10 Inhalant abuse, uncomplicated (principal); F31.9 Bipolar disorder, unspecified
CPT/HCPCS: 80053; 80307; 85025; 99283

== ENCOUNTER 2016-12-24 00:54 | Emergency (ER) | payer SELFPAY ==
[~2016-12-24] VITALS: Ht 180.3 cm; Wt 85.0 kg
[~2016-12-24 00:54] MED LIST changes: -AMLO10 PO; -CARV6.25 PO; -ESCI10TA PO
[2016-12-24 01:12] VITALS: BP 137/88; PULSE 93; RESP 17; TEMP 99.1; O2SAT 97
[2016-12-24] MEDS ORDERED: LURA20TA PO (01:36)
--- NOTE | 2016-12-24 01:59 | RADRPT ---
EXAM DATE/TIME: 12/24/2016 01:40 [facility] COMPARISON: No previous studies available for comparison. INDICATIONS : Swelling and redness to left ankle MEDICAL HISTORY : None. SURGICAL HISTORY : Right Femur Wil ENCOUNTER: Initial ACUITY: 1 day PAIN SCORE: 7/10 LOCATION: Left Ankle FINDINGS: Three view exam was performed of the left ankle. The bony structures are in normal alignment. No ev idence of acute fracture or malalignment. There is soft tissue swelling over the lateral malleolus.. The ankle mortise is intact. No radiopaque foreign bodies are seen. Bony mineralization is normal. CONCLUSION: Soft tissue swelling over the lateral malleolus with no acute fracture or malalignmen radha Luna MD on December 24, 2016 at 1:57 Board Certified Radiologist. This report was verified electronically.
[2016-12-24 02:07] LABS: AUTOMATED NEUTROPHIL # 11.3 TH/MM3 (1.8-7.7); BASOPHIL # 0.1 TH/MM3 (0-0.2); BASOPHIL % 0.8 % (0.0-2.0); EOSINOPHIL # 0.4 TH/MM3 (0-0.4); EOSINOPHIL % 2.3 % (0.0-4.0); HEMO FLAGS DIFF FINAL; LYMPH % 13.8 % (9.0-44.0); LYMPHOCYTE # 2.2 TH/MM3 (1.0-4.8); MEAN CELL VOLUME 87.9 FL (80.0-100.0); MEAN CORPUSCULAR HGB CONC 35.3 % (32.0-36.0); MONO % 10.9 % (0.0-8.0); NEUT % 72.2 % (16.0-70.0); PLATELET COUNT 316 TH/MM3 (150-450); RED BLOOD COUNT 5.12 MIL/MM3 (4.50-5.90); RED CELL DISTRIBUTION WIDTH 12.9 % (11.6-17.2); WHITE BLOOD COUNT 15.7 TH/MM3 (4.0-11.0)
[2016-12-24 02:24] LABS: ALT (GPT) 26 U/L (12-78); ANION GAP 5 MEQ/L (5-15); AST (GOT) 50 U/L (15-37); BICARBONATE 32.1 MEQ/L (21.0-32.0); BLOOD UREA NITROGEN 20 MG/DL (7-18); CHLORIDE 101 MEQ/L (98-107); GLOMERULAR FILTRATION RATE 48 ML/MIN (>89); POTASSIUM 4.4 MEQ/L (3.5-5.1); SODIUM (NA) 138 MEQ/L (136-145)
[2016-12-24 02:26] LABS: ALKALINE PHOSPHATASE 98 U/L (45-117); TOTAL BILIRUBIN ADULT 0.9 MG/DL (0.2-1.0)
[2016-12-24 02:27] LABS: BLOOD, URINE MOD (NEG); COMMENT (UR) CULTURE INDICATED; CULTURE IF INDICATED CULTURE INDICATED; GLUCOSE,URINE NEG (NEG); KETONE, URINE NEG (NEG); NITRITE,URINE NEG (NEG); PH, URINE 5.5 (5.0-8.5); URINE COLOR YELLOW (YELLW/STRAW)
--- NOTE | 2016-12-24 02:28 | PD ---
HPI Chief Complaint: Psychiatric Symptoms Time Seen by Provider: 01:38 Travel History International Travel<30 days: No Contact w/Intl Traveler<30days: No History of Present Illness HPI Patient is a 31-year-old male that presented to the emergency Department voluntarily for psychiatric evaluation. Patient reports relapsing on heroin. He was kicked out of his assisted house 2 days ago of his drug use. He had been sober for 4 months prior. He reports left ankle pain, he states rolled his ankle today. This pain is a 6 out of 10 and states it's aching. He does not want any medication for pain. Patient states he is able to ambulate on it but limps. Patient reports feeling suicidal because he was kicked out of the assisted house and because of his current situation. PFSH Past Medical History Hx Anticoagulant Therapy: No ADHD: Yes Arthritis: No Autoimmune Disease: No Bipolar Disorder: Yes Anxiety: Yes Depression: Yes Heart Rhythm Problems: No Cancer: No Cardiovascular Problems: Yes (HTN) High Cholesterol: No Chemotherapy: No Chest Pain: No Congestive Heart Failure: No Cerebrovascular Accident: No Diabetes: No Diminished Hearing: No Genitourinary: No Headaches: No Hypertension: Yes Implanted Vascular Access Dvce: Yes (INFUSAPORT RT CHEST/LT HAND OSTEOMYL) Musculoskeletal: Yes Neurologic: No Psychiatric: Yes Reproductive: No Respiratory: No Migraines: No Seizures: Yes Past Surgical History Abdominal Surgery: No Cardiac Surgery: No Ear Surgery: No Endocrine Surgery: No Eye Surgery: No Genitourinary Surgery: No Gynecologic Surgery: No Hysterectomy: No Joint Replacement: Yes (RT FEMUR) Neurologic Surgery: No Oral Surgery: No Thoracic Surgery: No Other Surgery: Yes (pins in right femur ) Social History Alcohol Use: No Tobacco Use: No Substance Use: Yes (LAST USE 1 DAY AGO) Allergies-Medications (Allergen,Severity, Reaction): Coded Allergies: bee venom protein (honey bee) (Unverified Allergy, Unknown, 12/24/16) Reported Meds & Prescriptions Reported Meds & Active Scripts Active Reported Latuda (Lurasidone) 20 Mg Tab 20 Mg PO DAILY Review of Systems Except as stated in HPI: all other systems reviewed are Neg Musculoskeletal: Positive: Myalgias, Edema Psychiatric: Positive: Depression, Suicidal Ideations, Substance Abuse Physical Exam Narrative GENERAL: Developed, well-nourished, alert male. Resting comfortably in no acute distress. SKIN: Warm and dry. HEAD: Atraumatic. Normocephalic. EYES: Pupils equal and round. No scleral icterus. No injection or drainage. ENT: No nasal bleeding or discharge. Mucous membranes pink and moist. NECK: Trachea midline. No JVD. CARDIOVASCULAR: Regular rate and rhythm. RESPIRATORY: No accessory muscle use. Clear to auscultation. Breath sounds equal bilaterally. GASTROINTESTINAL: Abdomen soft, non-tender, nondistended. Hepatic and splenic margins not palpable. MUSCULOSKELETAL: Extremities without clubbing, cyanosis. No obvious deformities. Edema noted to the lateral aspect of left ankle. Mild ecchymosis noted to the lateral aspect of the left foot. NEUROLOGICAL: Awake and alert. No obvious cranial nerve deficits. Motor grossly within normal limits. Five out of 5 muscle strength in the arms and legs. Normal speech. PSYCHIATRIC: Appropriate mood and affect; insight and judgment normal. Data Data Last Documented VS Vital Signs Date Time Temp Pulse Resp B/P (MAP) Pulse Ox O2 Delivery O2 Flow Rate FiO2 12/24/16 01:12 99.1 93 17 137/88 (104) 97 Room Air Orders Orders Psych Screen (12/24/16 01:31) Complete Blood Count With Diff (12/24/16 01:37) Comprehensive Metabolic Panel (12/24/16 01:37) Urinalysis - C+S If Indicated (12/24/16 01:37) Drug Screen, Random Urine (12/24/16 01:37) Alcohol (Ethanol) (12/24/16 01:37) Salicylates (Aspirin) (12/24/16 01:37) Tylenol (Acetaminophen) (12/24/16 01:37) Ankle, Complete ([id number]) (12/24/16 ) Evaristo Bandage (12/24/16 02:08) Crutches (12/24/16 02:24) Urine Culture (12/24/16 01:54) Nitrofurantoin Monohyd Macrocr (Macrobid (12/24/16 02:45) Labs Laboratory Tests Test 12/24/16 01:54 White Blood Count 15.7 TH/MM3 Red Blood Count 5.12 MIL/MM3 Hemoglobin 15.9 GM/DL Hematocrit 45.0 % Mean Corpuscular Volume 87.9 FL Mean Corpuscular Hemoglobin 31.0 PG Mean Corpuscular Hemoglobin Concent 35.3 % Red Cell Distribution Width 12.9 % Platelet Count 316 TH/MM3 Mean Platelet Volume 7.8 FL Neutrophils (%) (Auto) 72.2 % Lymphocytes (%) (Auto) 13.8 % Monocytes (%) (Auto) 10.9 % Eosinophils (%) (Auto) 2.3 % Basophils (%) (Auto) 0.8 % Neutrophils # (Auto) 11.3 TH/MM3 Lymphocytes # (Auto) 2.2 TH/MM3 Monocytes # (Auto) 1.7 TH/MM3 Eosinophils # (Auto) 0.4 TH/MM3 Basophils # (Auto) 0.1 TH/MM3 CBC Comment DIFF FINAL Differential Comment Urine Color YELLOW Urine Turbidity CLEAR Urine pH 5.5 Urine Specific Lind 1.012 Urine Protein 100 mg/dL Urine Glucose (UA) NEG mg/dL Urine Ketones NEG mg/dL Urine Occult Blood MOD Urine Nitrite NEG Urine Bilirubin NEG Urine Urobilinogen LESS THAN 2.0 MG/DL Urine Leukocyte Esterase NEG Urine RBC 4 /hpf Urine WBC 6 /hpf Urine WBC Clumps RARE Microscopic Urinalysis Comment CULTURE INDICATED Blood Urea Nitrogen 20 MG/DL Creatinine 1.66 MG/DL Random Glucose 103 MG/DL Total Protein 7.9 GM/DL Albumin 3.9 GM/DL Calcium Level 8.8 MG/DL Alkaline Phosphatase 98 U/L Aspartate Amino Transf (AST/SGOT) 50 U/L Alanine Aminotransferase (ALT/SGPT) 26 U/L Total Bilirubin 0.9 MG/DL Sodium Level 138 MEQ/L Potassium Level 4.4 MEQ/L Chloride Level 101 MEQ/L Carbon Dioxide Level 32.1 MEQ/L Anion Gap 5 MEQ/L Estimat Glomerular Filtration Rate 48 ML/MIN Salicylates Level LESS THAN 1.7 MG/DL Urine Opiates Screen NEG Urine Barbiturates Screen NEG Urine Amphetamines Screen NEG Urine Benzodiazepines Screen NEG Urine Cocaine Screen POS Urine Cannabinoids Screen POS MDM Medical Decision Making Medical Screen Exam Complete: Yes Emergency Medical Condition: Yes Medical Record Reviewed: Yes Interpretation(s) Laboratory Tests Test 12/24/16 01:54 White Blood Count 15.7 TH/MM3 Red Blood Count 5.12 MIL/MM3 Hemoglobin 15.9 GM/DL Hematocrit 45.0 % Mean Corpuscular Volume 87.9 FL Mean Corpuscular Hemoglobin 31.0 PG Mean Corpuscular Hemoglobin Concent 35.3 % Red Cell Distribution Width 12.9 % Platelet Count 316 TH/MM3 Mean Platelet Volume 7.8 FL Neutrophils (%) (Auto) 72.2 % Lymphocytes (%) (Auto) 13.8 % Monocytes (%) (Auto) 10.9 % Eosinophils (%) (Auto) 2.3 % Basophils (%) (Auto) 0.8 % Neutrophils # (Auto) 11.3 TH/MM3 Lymphocytes # (Auto) 2.2 TH/MM3 Monocytes # (Auto) 1.7 TH/MM3 Eosinophils # (Auto) 0.4 TH/MM3 Basophils # (Auto) 0.1 TH/MM3 CBC Comment DIFF FINAL Differential Comment Urine Color YELLOW Urine Turbidity CLEAR Urine pH 5.5 Urine Specific Lind 1.012 Urine Protein 100 mg/dL Urine Glucose (UA) NEG mg/dL Urine Ketones NEG mg/dL Urine Occult Blood MOD Urine Nitrite NEG Urine Bilirubin NEG Urine Urobilinogen LESS THAN 2.0 MG/DL Urine Leukocyte Esterase NEG Urine RBC 4 /hpf Urine WBC 6 /hpf Urine WBC Clumps RARE Microscopic Urinalysis Comment CULTURE INDICATED Blood Urea Nitrogen 20 MG/DL Creatinine 1.66 MG/DL Random Glucose 103 MG/DL Total Protein 7.9 GM/DL Albumin 3.9 GM/DL Calcium Level 8.8 MG/DL Alkaline Phosphatase 98 U/L Aspartate Amino Transf (AST/SGOT) 50 U/L Alanine Aminotransferase (ALT/SGPT) 26 U/L Total Bilirubin 0.9 MG/DL Sodium Level 138 MEQ/L Potassium Level 4.4 MEQ/L Chloride Level 101 MEQ/L Carbon Dioxide Level 32.1 MEQ/L Anion Gap 5 MEQ/L Estimat Glomerular Filtration Rate 48 ML/MIN Salicylates Level LESS THAN 1.7 MG/DL Urine Opiates Screen NEG Acetaminophen Level LESS THAN 2.0 MCG/ML Urine Barbiturates Screen NEG Urine Amphetamines Screen NEG Urine Benzodiazepines Screen NEG Urine Cocaine Screen POS Urine Cannabinoids Screen POS Ethyl Alcohol Level LESS THAN 3 MG/DL Vital Signs Date Time Temp Pulse Resp B/P (MAP) Pulse Ox O2 Delivery O2 Flow Rate FiO2 12/24/16 01:12 99.1 93 17 137/88 (104) 97 Room Air Differential Diagnosis Mood disorder versus substance abuse versus metabolic abnormality versus sprain versus strain versus suicidal ideations versus other Narrative Course Patient is a 31-year-old male that presented to emergency department voluntarily for psychiatric evaluation secondary to substance abuse and suicidal ideations. He subsequently complained of left ankle pain, imaging is negative for acute fracture per shows soft tissue swelling on the lateral aspect. Patient will be placed in an Evaristo wrap, crutches were ordered should he be discharged. Patient refused pain medication. Urinalysis is consistent with a urinary tract infection, nitrofurantoin has been ordered. A prescription has been written BUN and creatinine slightly elevated like secondary to poor oral intake. Patient is advised to increase fluid intake. Urine drug screen is positive for cocaine and marijuana CBC with a white count of 13.7 with left shift. Likely due to urinary tract infection or inflammatory response. Patient is afebrile, he appears well, he has no physical complaints. Patient is medically clear for psychiatric evaluation at this time. Diagnosis Primary Impression: Medical clearance for psychiatric admission Additional Impressions: Ankle sprain Qualified Codes: S93.402A - Sprain of unspecified ligament of left ankle, initial encounter UTI (urinary tract infection) Qualified Codes: N39.0 - Urinary tract infection, site not specified; R31.9 - Hematuria, unspecified Polysubstance dependence Scripts Nitrofurantoin Monohydrate Macrocrystals (Nitrofurantoin Monohydrate Macrocrystals) 100 Mg Cap 100 MG PO BID for Infection, #14 CAP 0 Refills Prov: Nena Smith 12/24/16 Condition: Stable Nena Smith Dec 24, 2016 02:28
[2016-12-24] MEDS ORDERED: NITROFURANTOIN MONOHYD MACROCR 100 MG CAP PO ONE (02:45)
[2016-12-24 02:47] LABS: ACETAMINOPHEN LESS THAN 2.0 MCG/ML (10.0-30.0); ALCOHOL LESS THAN 3 MG/DL (0-5)
[2016-12-24] MEDS ORDERED: NITR100C4 PO (02:47)
[2016-12-24 06:14] VITALS: BP 116/64; PULSE 78; RESP 18; O2SAT 98
[2016-12-24] MEDS ORDERED: LURASIDONE 40 MG TAB PO ONE (12:30)
--- NOTE | 2016-12-24 12:37 | PD ---
History of Present Illness Chief Complaint: Psychiatric Symptoms Time Seen by Provider: 12:30 Travel History International Travel<30 Days: No Contact w/Intl Traveler<30days: No Known affected area: No Legal Status Legal Status: Voluntary History of Present Illness: History of Present Illness Patient is a 31-year-old male with history of substance use disorder as well as bipolar disorder that presented to the emergency Department voluntarily for psychiatric evaluation. Patient reports he relapsed and used heroin 2 days ago. His current toxicology is positive for cocaine as well as cannabinoids. As a result of his use of substances he was kicked out of his penitentiary house, [facility]. Patient reports feeling suicidal because he was kicked out of the penitentiary house and because of his current situation. He was monitored in j pod and exhibited no suicidality. Slept well and ate well. Review of EMR. Has had multiple visits to Ed as well as several admissions to [facility] psychiatry dept. He is alert, oriented. No signs of any psychosis, no rosalino. no paranoia. He denies current suicdal ideation and has plans on presenting himself to [facility] for detox once he is discharged from [facility]. He also wants to go back on his prescribed psychiatric medication. PFSH Past Medical History Hx Anticoagulant Therapy: No ADHD: Yes Arthritis: No Autoimmune Disease: No Bipolar Disorder: Yes Anxiety: Yes Depression: Yes Heart Rhythm Problems: No Cancer: No Cardiovascular Problems: Yes (HTN) High Cholesterol: No Chemotherapy: No Chest Pain: No Congestive Heart Failure: No Cerebrovascular Accident: No Diabetes: No Diminished Hearing: No Genitourinary: No Headaches: No Hypertension: Yes Implanted Vascular Access Dvce: Yes (INFUSAPORT RT CHEST/LT HAND OSTEOMYL) Musculoskeletal: Yes Neurologic: No Psychiatric: Yes Reproductive: No Respiratory: No Migraines: No Seizures: Yes Past Surgical History Abdominal Surgery: No Cardiac Surgery: No Ear Surgery: No Endocrine Surgery: No Eye Surgery: No Genitourinary Surgery: No Gynecologic Surgery: No Hysterectomy: No Joint Replacement: Yes (RT FEMUR) Neurologic Surgery: No Oral Surgery: No Thoracic Surgery: No Other Surgery: Yes (pins in right femur ) Psychiatric History Psychiatric History Hx Psychiatric Treatment: HX OF ADMISSION AT [facility] AND [facility]. Has outpatietn tretametn at [facility]. History of Inpatient Treatment: Yes Guns or firearms in home: No Social History Single male. homeless. Hx Alcohol Use: No Hx Tobacco Use: No Hx Substance Use: Yes (LAST USE 1 DAY AGO) Substance Use Type: Crack, Heroin, Huffing Other Substances Used: HAS A HISTORY OF SUBSTANCE ABUSE Hx of Substance Use Treatment: Yes Family Psychiatric History Positive for bipolar disorder Allergies-Medications (Allergen,Severity, Reaction): Coded Allergies: bee venom protein (honey bee) (Unverified Allergy, Unknown, 12/24/16) Reported Meds & Prescriptions Reported Meds & Active Scripts Active Nitrofurantoin Monohydrate Macrocrystals (Nitrofurantoin Monoh/Nitrofur Macro) 100 Mg Cap 100 Mg PO BID Reported Latuda (Lurasidone) 20 Mg Tab 20 Mg PO DAILY Review of Systems Except as stated in HPI: all other systems reviewed are Neg Mental Status Examination Appearance: Appropriate Consciousness: Alert Orientation: x4 Motor Activity: Normal gait Speech: Unremarkable Language: Adequate Fund of Knowledge: Adequate Attention and Concentration: Adequate Memory: Unremarkable Mood: Appropriate Affect: Appropriate Thought Process & Associations: Intact Thought Content: Appropriate Hallucination Type: None Delusion Type: None Suicidal Ideation: No Suicidal Plan: No Suicidal Intention: No Homicidal Ideation: No Homicidal Plan: No Homicidal Intention: No Insight: Fair Judgment: Impulsive MDM Medical Decision Making Medical Record Reviewed: Yes Assessment/Plan Patient is a 31-year-old male with history of substance use disorder as well as bipolar disorder that presented to the emergency Department voluntarily for psychiatric evaluation. Patient reports he relapsed and used heroin 2 days ago. His current toxicology is positive for cocaine as well as cannabinoids. As a result of his use of substances he was kicked out of his penitentiary house, [facility]. Patient reports feeling suicidal because he was kicked out of the penitentiary house and because of his current situation. He was monitored in j [facility] and exhibited no suicidality. Slept well and ate well. He is requesting to go back on his prescribed psychiatric medication. he also wants to present himself to [facility] for detox. Psychiatrically clear for discharge. Orders Orders Psych Screen (12/24/16 01:31) Complete Blood Count With Diff (12/24/16 01:37) Comprehensive Metabolic Panel (12/24/16 01:37) Urinalysis - C+S If Indicated (12/24/16 01:37) Drug Screen, Random Urine (12/24/16 01:37) Alcohol (Ethanol) (12/24/16 01:37) Salicylates (Aspirin) (12/24/16 01:37) Tylenol (Acetaminophen) (12/24/16 01:37) Ankle, Complete ([id number]) (12/24/16 ) Evaristo Bandage (12/24/16 02:08) Crutches (12/24/16 02:24) Urine Culture (12/24/16 01:54) Nitrofurantoin Monohyd Macrocr (Macrobid (12/24/16 02:45) ^ Encourage Fluids (12/24/16 02:51) Diet Regular Basic (12/24/16 Breakfast) Diet Regular Basic (12/24/16 Lunch) Lurasidone (Latuda) (12/24/16 12:30) Ed Discharge Order (12/24/16 12:24) Results Vital Signs Date Time Temp Pulse Resp B/P (MAP) Pulse Ox O2 Delivery O2 Flow Rate FiO2 12/24/16 06:14 78 18 116/64 (81) 98 Room Air 12/24/16 01:12 99.1 93 17 137/88 (104) 97 Room Air Laboratory Tests Test 12/24/16 01:54 White Blood Count 15.7 Red Blood Count 5.12 Hemoglobin 15.9 Hematocrit 45.0 Mean Corpuscular Volume 87.9 Mean Corpuscular Hemoglobin 31.0 Mean Corpuscular Hemoglobin Concent 35.3 Red Cell Distribution Width 12.9 Platelet Count 316 Mean Platelet Volume 7.8 Neutrophils (%) (Auto) 72.2 Lymphocytes (%) (Auto) 13.8 Monocytes (%) (Auto) 10.9 Eosinophils (%) (Auto) 2.3 Basophils (%) (Auto) 0.8 Neutrophils # (Auto) 11.3 Lymphocytes # (Auto) 2.2 Monocytes # (Auto) 1.7 Eosinophils # (Auto) 0.4 Basophils # (Auto) 0.1 CBC Comment DIFF FINAL Differential Comment Urine Color YELLOW Urine Turbidity CLEAR Urine pH 5.5 Urine Specific [place] 1.012 Urine Protein 100 Urine Glucose (UA) NEG Urine Ketones NEG Urine Occult Blood MOD Urine Nitrite NEG Urine Bilirubin NEG Urine Urobilinogen LESS THAN 2.0 Urine Leukocyte Esterase NEG Urine RBC 4 Urine WBC 6 Urine WBC Clumps RARE Microscopic Urinalysis Comment CULTURE INDICATED Blood Urea Nitrogen 20 Creatinine 1.66 Random Glucose 103 Total Protein 7.9 Albumin 3.9 Calcium Level 8.8 Alkaline Phosphatase 98 Aspartate Amino Transf (AST/SGOT) 50 Alanine Aminotransferase (ALT/SGPT) 26 Total Bilirubin 0.9 Sodium Level 138 Potassium Level 4.4 Chloride Level 101 Carbon Dioxide Level 32.1 Anion Gap 5 Estimat Glomerular Filtration Rate 48 Salicylates Level LESS THAN 1.7 Urine Opiates Screen NEG Acetaminophen Level LESS THAN 2.0 Urine Barbiturates Screen NEG Urine Amphetamines Screen NEG Urine Benzodiazepines Screen NEG Urine Cocaine Screen POS Urine Cannabinoids Screen POS Ethyl Alcohol Level LESS THAN 3 Date/Time Source Procedure Growth Status 12/24/16 01:54 Urine Clean Catch Urine Culture Pending Received Diagnosis Primary Impression: Polysubstance dependence Psychiatrically Cleared: Yes Med/ Other Pt Specific Info: No Change to Meds Prescriptions Nitrofurantoin Monohydrate Macrocrystals (Nitrofurantoin Monohydrate Macrocrystals) 100 Mg Cap 100 MG PO BID for Infection, #14 CAP 0 Refills Prov: Nena SmithP 12/24/16 Disposition: 01 DISCHARGE HOME Condition: Stable Louann Stevens Alec HEARD Dec 24, 2016 12:37
[2016-12-24 12:47] VITALS: BP 116/64; PULSE 78; RESP 18; O2SAT 98
--- NOTE | 2016-12-24 12:57 | PD ---
Physical Exam Date Seen by Provider: Dec 24, 2016 Time Seen by Provider: 12:45 Data Data Last Documented VS Vital Signs Date Time Temp Pulse Resp B/P (MAP) Pulse Ox O2 Delivery O2 Flow Rate FiO2 12/24/16 12:47 78 18 116/64 (81) 98 Room Air 12/24/16 01:12 99.1 Orders Orders Psych Screen (12/24/16 01:31) Complete Blood Count With Diff (12/24/16 01:37) Comprehensive Metabolic Panel (12/24/16 01:37) Urinalysis - C+S If Indicated (12/24/16 01:37) Drug Screen, Random Urine (12/24/16 01:37) Alcohol (Ethanol) (12/24/16 01:37) Salicylates (Aspirin) (12/24/16 01:37) Tylenol (Acetaminophen) (12/24/16 01:37) Ankle, Complete ([id number]) (12/24/16 ) Evaristo Bandage (12/24/16 02:08) Crutches (12/24/16 02:24) Urine Culture (12/24/16 01:54) Nitrofurantoin Monohyd Macrocr (Macrobid (12/24/16 02:45) ^ Encourage Fluids (12/24/16 02:51) Diet Regular Basic (12/24/16 Breakfast) Diet Regular Basic (12/24/16 Lunch) Lurasidone (Latuda) (12/24/16 12:30) Ed Discharge Order (12/24/16 12:24) Labs Laboratory Tests Test 12/24/16 01:54 White Blood Count 15.7 TH/MM3 Red Blood Count 5.12 MIL/MM3 Hemoglobin 15.9 GM/DL Hematocrit 45.0 % Mean Corpuscular Volume 87.9 FL Mean Corpuscular Hemoglobin 31.0 PG Mean Corpuscular Hemoglobin Concent 35.3 % Red Cell Distribution Width 12.9 % Platelet Count 316 TH/MM3 Mean Platelet Volume 7.8 FL Neutrophils (%) (Auto) 72.2 % Lymphocytes (%) (Auto) 13.8 % Monocytes (%) (Auto) 10.9 % Eosinophils (%) (Auto) 2.3 % Basophils (%) (Auto) 0.8 % Neutrophils # (Auto) 11.3 TH/MM3 Lymphocytes # (Auto) 2.2 TH/MM3 Monocytes # (Auto) 1.7 TH/MM3 Eosinophils # (Auto) 0.4 TH/MM3 Basophils # (Auto) 0.1 TH/MM3 CBC Comment DIFF FINAL Differential Comment Urine Color YELLOW Urine Turbidity CLEAR Urine pH 5.5 Urine Specific [place] 1.012 Urine Protein 100 mg/dL Urine Glucose (UA) NEG mg/dL Urine Ketones NEG mg/dL Urine Occult Blood MOD Urine Nitrite NEG Urine Bilirubin NEG Urine Urobilinogen LESS THAN 2.0 MG/DL Urine Leukocyte Esterase NEG Urine RBC 4 /hpf Urine WBC 6 /hpf Urine WBC Clumps RARE Microscopic Urinalysis Comment CULTURE INDICATED Blood Urea Nitrogen 20 MG/DL Creatinine 1.66 MG/DL Random Glucose 103 MG/DL Total Protein 7.9 GM/DL Albumin 3.9 GM/DL Calcium Level 8.8 MG/DL Alkaline Phosphatase 98 U/L Aspartate Amino Transf (AST/SGOT) 50 U/L Alanine Aminotransferase (ALT/SGPT) 26 U/L Total Bilirubin 0.9 MG/DL Sodium Level 138 MEQ/L Potassium Level 4.4 MEQ/L Chloride Level 101 MEQ/L Carbon Dioxide Level 32.1 MEQ/L Anion Gap 5 MEQ/L Estimat Glomerular Filtration Rate 48 ML/MIN Salicylates Level LESS THAN 1.7 MG/DL Urine Opiates Screen NEG Acetaminophen Level LESS THAN 2.0 MCG/ML Urine Barbiturates Screen NEG Urine Amphetamines Screen NEG Urine Benzodiazepines Screen NEG Urine Cocaine Screen POS Urine Cannabinoids Screen POS Ethyl Alcohol Level LESS THAN 3 MG/DL MDM Medical Record Reviewed: Yes Supervised Visit with TAYLOR: No Narrative Course Patient presented to the emergency room previously, voluntarily, for evaluation of suicidal ideation after relapsing on heroin. He has since been evaluated by psychiatric nurse practitioner and is not felt to be a threat to himself or others. Patient denies suicidal or homicidal ideations at this time. States he feels well and would like to go home. He was given Macrobid for UTI and crutches upon discharge for ankle sprain. Patient told to follow-up as per the psychiatrist's recommendations or return for worsening symptoms. He is stable for discharge. Diagnosis Primary Impression: Substance induced mood disorder Additional Impressions: Polysubstance dependence Medical clearance for psychiatric admission Ankle sprain Qualified Codes: S93.402A - Sprain of unspecified ligament of left ankle, initial encounter UTI (urinary tract infection) Qualified Codes: N39.0 - Urinary tract infection, site not specified; R31.9 - Hematuria, unspecified Patient Instructions: General Instructions, Mood Disorders (ED) Departure Forms: Tests/Procedures Additional Instruction: DX: Substance Induced Mood Disorder Please return to ED if symptoms worsen. Scripts Nitrofurantoin Monohydrate Macrocrystals (Nitrofurantoin Monohydrate Macrocrystals) 100 Mg Cap 100 MG PO BID for Infection, #14 CAP 0 Refills Prov: Nena Smith 12/24/16 Disposition: 01 DISCHARGE HOME Condition: Stable Gabrielle Prieto Dec 24, 2016 12:57
== END 2016-12-24 13:41 | disposition home or self-care (01) ==
LOC: NEPJ 00:54
DX: F11.20 Opioid dependence, uncomplicated (principal); S93.402A Sprain of unspecified ligament of left ankle, initial encounter; N39.0 Urinary tract infection, site not specified; R31.9 Hematuria, unspecified; F31.9 Bipolar disorder, unspecified; R45.851 Suicidal ideations; F41.9 Anxiety disorder, unspecified; I10 Essential (primary) hypertension; X58.XXXA Exposure to other specified factors, initial encounter
CPT/HCPCS: 73610; 80053; 80307; 81001; 85025; 87086; 99284; E0113

== ENCOUNTER 2017-01-13 04:10 | Emergency (ER) | payer OTHER ==
[~2017-01-13] VITALS: Ht 182.9 cm; Wt 80.0 kg
[~2017-01-13 04:10] MED LIST changes: -DEPA500T3 PO; +LURA20TA PO; +NITR100C4 PO; -QUET1TAB9 PO; -WELL200T PO
--- NOTE | 2017-01-13 04:25 | PD ---
HPI Chief Complaint: Vang act Time Seen by Provider: 04:14 Travel History International Travel<30 days: No Contact w/Intl Traveler<30days: No Traveled to known affect area: No History of Present Illness HPI 31-year-old white male presents to emergency department under Vang act by PD. The patient had notified ED that he was feeling depressed and having suicidal thoughts. He contemplated overdosing or walking out into traffic. The patient states that he had been in a 12-step sober living facility but was kicked out after admitting to inhaling ENdust. The patient states that he also said a history of a head injury and seizures. He's been off of his Depakote. His last seizure was 4 months ago. He denies any toxic ingestions. He admits to drinking wine coolers today and smoking marijuana. He states that he is tired of living. He does not feel that he has any friends, family, or place to stay. He self-medicating with alcohol and drugs. He denies any medical complaints otherwise. PFSH Past Medical History Hx Anticoagulant Therapy: No ADHD: Yes Arthritis: No Autoimmune Disease: No Bipolar Disorder: Yes Anxiety: Yes Depression: Yes Heart Rhythm Problems: No Cancer: No Cardiovascular Problems: Yes (HTN) High Cholesterol: No Chemotherapy: No Chest Pain: No Congestive Heart Failure: No Cerebrovascular Accident: No Diabetes: No Diminished Hearing: No Genitourinary: No Headaches: No Hypertension: Yes Implanted Vascular Access Dvce: Yes (INFUSAPORT RT CHEST/LT HAND OSTEOMYL) Musculoskeletal: Yes Neurologic: No Psychiatric: Yes Reproductive: No Respiratory: No Migraines: No Seizures: Yes Past Surgical History Abdominal Surgery: No Cardiac Surgery: No Ear Surgery: No Endocrine Surgery: No Eye Surgery: No Genitourinary Surgery: No Gynecologic Surgery: No Hysterectomy: No Neurologic Surgery: No Oral Surgery: No Thoracic Surgery: No Other Surgery: Yes (pins in right femur ) Social History Alcohol Use: Yes Tobacco Use: Yes Substance Use: Yes (LAST USE 1 DAY AGO) Allergies-Medications (Allergen,Severity, Reaction): Coded Allergies: bee venom protein (honey bee) (Unverified Allergy, Unknown, 01/13/17) Reported Meds & Prescriptions Reported Meds & Active Scripts Active Reported Depakote DR (Divalproex Sodium) 500 Mg Tabdr 500 Mg PO BID Seroquel (Quetiapine Fumarate) 100 Mg Tab 100 Mg PO DAILY Latuda (Lurasidone) 20 Mg Tab 20 Mg PO DAILY Review of Systems General / Constitutional: No: Fever Eyes: No: Visual changes HENT: No: Headaches Cardiovascular: No: Chest Pain or Discomfort Respiratory: No: Shortness of Breath Gastrointestinal: No: Abdominal Pain Genitourinary: No: Dysuria Musculoskeletal: No: Pain Skin: No Rash Neurologic: No: Weakness Psychiatric: Positive: Depression, Suicidal Ideations, Mood Disorder, Substance Abuse, No: Anxiety, Disorder of Thought, Homicidal Ideation Endocrine: No: Polydipsia Hematologic/Lymphatic: No: Easy Bruising Physical Exam Narrative GENERAL: Well-nourished, well-developed patient. SKIN: Warm and dry. HEAD: Normocephalic and atraumatic. EYES: No scleral icterus. No injection or drainage. ENT: No nasal drainage noted. Mucous membranes pink. Airway patent. NECK: Supple, trachea midline. Moves head freely without obvious discomfort. CARDIOVASCULAR: Regular rate and rhythm without murmurs, gallops, or rubs. RESPIRATORY: Breath sounds equal bilaterally. No accessory muscle use. GASTROINTESTINAL: Abdomen soft, non-tender, nondistended. EXTREMITIES: No cyanosis or edema. BACK: Nontender without obvious deformity. No CVA tenderness. NEURO: Patient is alert and oriented. no sensorimotor deficits. Nonfocal. Normal speech. PSYCH: No delusions. No auditory or visual hallucinations. Data Data Last Documented VS Vital Signs Date Time Temp Pulse Resp B/P (MAP) Pulse Ox O2 Delivery O2 Flow Rate FiO2 01/13/17 04:41 68 20 01/13/17 04:31 98.7 145/92 (109) 98 Orders Orders Complete Blood Count With Diff (01/13/17 04:21) Comprehensive Metabolic Panel (01/13/17 04:21) Valproic Acid (Depakene) (01/13/17 04:21) Psych Screen (01/13/17 04:21) Drug Screen, Random Urine (01/13/17 04:21) Alcohol (Ethanol) (01/13/17 04:21) Salicylates (Aspirin) (01/13/17 04:21) Tylenol (Acetaminophen) (01/13/17 04:21) Labs Laboratory Tests Test 01/13/17 04:20 White Blood Count 11.6 TH/MM3 Red Blood Count 5.24 MIL/MM3 Hemoglobin 16.1 GM/DL Hematocrit 46.8 % Mean Corpuscular Volume 89.2 FL Mean Corpuscular Hemoglobin 30.7 PG Mean Corpuscular Hemoglobin Concent 34.3 % Red Cell Distribution Width 13.6 % Platelet Count 295 TH/MM3 Mean Platelet Volume 8.3 FL Neutrophils (%) (Auto) 71.2 % Lymphocytes (%) (Auto) 19.4 % Monocytes (%) (Auto) 7.0 % Eosinophils (%) (Auto) 1.7 % Basophils (%) (Auto) 0.7 % Neutrophils # (Auto) 8.2 TH/MM3 Lymphocytes # (Auto) 2.2 TH/MM3 Monocytes # (Auto) 0.8 TH/MM3 Eosinophils # (Auto) 0.2 TH/MM3 Basophils # (Auto) 0.1 TH/MM3 CBC Comment DIFF FINAL Differential Comment Blood Urea Nitrogen 12 MG/DL Creatinine 1.05 MG/DL Random Glucose 102 MG/DL Total Protein 7.8 GM/DL Albumin 4.0 GM/DL Calcium Level 8.5 MG/DL Alkaline Phosphatase 97 U/L Aspartate Amino Transf (AST/SGOT) 30 U/L Alanine Aminotransferase (ALT/SGPT) 31 U/L Total Bilirubin 1.1 MG/DL Sodium Level 141 MEQ/L Potassium Level 4.0 MEQ/L Chloride Level 104 MEQ/L Carbon Dioxide Level 28.7 MEQ/L Anion Gap 8 MEQ/L Estimat Glomerular Filtration Rate 82 ML/MIN Salicylates Level LESS THAN 1.7 MG/DL Urine Opiates Screen NEG Acetaminophen Level LESS THAN 2.0 MCG/ML Urine Barbiturates Screen NEG Valproic Acid (Depakene) Level 3 MCG/ML Urine Amphetamines Screen NEG Urine Benzodiazepines Screen NEG Urine Cocaine Screen NEG Urine Cannabinoids Screen NEG Ethyl Alcohol Level 3 MG/DL MDM Medical Decision Making Medical Screen Exam Complete: Yes Emergency Medical Condition: Yes Medical Record Reviewed: Yes Interpretation(s) Laboratory Tests Test 01/13/17 04:20 White Blood Count 11.6 TH/MM3 Red Blood Count 5.24 MIL/MM3 Hemoglobin 16.1 GM/DL Hematocrit 46.8 % Mean Corpuscular Volume 89.2 FL Mean Corpuscular Hemoglobin 30.7 PG Mean Corpuscular Hemoglobin Concent 34.3 % Red Cell Distribution Width 13.6 % Platelet Count 295 TH/MM3 Mean Platelet Volume 8.3 FL Neutrophils (%) (Auto) 71.2 % Lymphocytes (%) (Auto) 19.4 % Monocytes (%) (Auto) 7.0 % Eosinophils (%) (Auto) 1.7 % Basophils (%) (Auto) 0.7 % Neutrophils # (Auto) 8.2 TH/MM3 Lymphocytes # (Auto) 2.2 TH/MM3 Monocytes # (Auto) 0.8 TH/MM3 Eosinophils # (Auto) 0.2 TH/MM3 Basophils # (Auto) 0.1 TH/MM3 CBC Comment DIFF FINAL Differential Comment Blood Urea Nitrogen 12 MG/DL Creatinine 1.05 MG/DL Random Glucose 102 MG/DL Total Protein 7.8 GM/DL Albumin 4.0 GM/DL Calcium Level 8.5 MG/DL Alkaline Phosphatase 97 U/L Aspartate Amino Transf (AST/SGOT) 30 U/L Alanine Aminotransferase (ALT/SGPT) 31 U/L Total Bilirubin 1.1 MG/DL Sodium Level 141 MEQ/L Potassium Level 4.0 MEQ/L Chloride Level 104 MEQ/L Carbon Dioxide Level 28.7 MEQ/L Anion Gap 8 MEQ/L Estimat Glomerular Filtration Rate 82 ML/MIN Salicylates Level LESS THAN 1.7 MG/DL Urine Opiates Screen NEG Acetaminophen Level LESS THAN 2.0 MCG/ML Urine Barbiturates Screen NEG Valproic Acid (Depakene) Level 3 MCG/ML Urine Amphetamines Screen NEG Urine Benzodiazepines Screen NEG Urine Cocaine Screen NEG Urine Cannabinoids Screen NEG Ethyl Alcohol Level 3 MG/DL Differential Diagnosis MDM: High Differential diagnoses: Schizophrenia, schizoaffective disorder, bipolar, anxiety, depression, adjustment reaction, mood disorder NOS, ODD, depressive disorder NOS, dementia, dementia with agitation, psychosis NOS, substance induced mood disorder, DMDD, Asperger syndrome, infection,electrolyte abnormality, malingering. Narrative Course Mental health screening discussed with the patient. Psychiatric screen ordered. The patient's been medically cleared. This is medical clearance for psychiatric admission Diagnosis Primary Impression: Medical clearance for psychiatric admission Condition: Steve Vaughn Jan 13, 2017 04:25
[2017-01-13] MEDS ORDERED: DEPA500T PO (04:30)
[2017-01-13] MEDS ORDERED: SERO100T PO (04:30)
[2017-01-13 04:31] VITALS: BP 145/92; PULSE 68; RESP 20; TEMP 98.7; O2SAT 98
[2017-01-13 04:52] LABS: ANION GAP 8 MEQ/L (5-15); AST (GOT) 30 U/L (15-37); BICARBONATE 28.7 MEQ/L (21.0-32.0); BLOOD UREA NITROGEN 12 MG/DL (7-18); CHLORIDE 104 MEQ/L (98-107); GLOMERULAR FILTRATION RATE 82 ML/MIN (>89); SODIUM (NA) 141 MEQ/L (136-145)
[2017-01-13 04:55] LABS: AUTOMATED NEUTROPHIL # 8.2 TH/MM3 (1.8-7.7); BASOPHIL # 0.1 TH/MM3 (0-0.2); BASOPHIL % 0.7 % (0.0-2.0); EOSINOPHIL # 0.2 TH/MM3 (0-0.4); EOSINOPHIL % 1.7 % (0.0-4.0); HEMATOCRIT 46.8 % (39.0-51.0); HEMO FLAGS DIFF FINAL; LYMPH % 19.4 % (9.0-44.0); LYMPHOCYTE # 2.2 TH/MM3 (1.0-4.8); MEAN CELL VOLUME 89.2 FL (80.0-100.0); MEAN CORPUSCULAR HEMOGLOBIN 30.7 PG (27.0-34.0); MEAN CORPUSCULAR HGB CONC 34.3 % (32.0-36.0); NEUT % 71.2 % (16.0-70.0); PLATELET COUNT 295 TH/MM3 (150-450); RED BLOOD COUNT 5.24 MIL/MM3 (4.50-5.90); RED CELL DISTRIBUTION WIDTH 13.6 % (11.6-17.2); WHITE BLOOD COUNT 11.6 TH/MM3 (4.0-11.0)
[2017-01-13 04:56] LABS: ALKALINE PHOSPHATASE 97 U/L (45-117); ALT (GPT) 31 U/L (12-78); TOTAL BILIRUBIN ADULT 1.1 MG/DL (0.2-1.0)
[2017-01-13 04:57] LABS: ALCOHOL 3 MG/DL (0-5)
[2017-01-13 04:58] LABS: ACETAMINOPHEN LESS THAN 2.0 MCG/ML (10.0-30.0)
[2017-01-13 06:09] VITALS: BP 116/55; PULSE 64; RESP 20; O2SAT 98
[2017-01-13 11:32] VITALS: BP 129/78; PULSE 88; RESP 16; O2SAT 97
--- NOTE | 2017-01-13 13:07 | PD ---
Physical Exam Time Seen by Provider: 13:05 ORQUIDEA Strickland, has evaluated the patient lifted the Vang act and cleared the patient for discharge. The patient has plan to follow-up at [facility] drug detox. Data Data Last Documented VS Vital Signs Date Time Temp Pulse Resp B/P (MAP) Pulse Ox O2 Delivery O2 Flow Rate FiO2 01/13/17 11:32 88 16 129/78 (95) 97 Room Air 01/13/17 04:31 98.7 Orders Orders Complete Blood Count With Diff (01/13/17 04:21) Comprehensive Metabolic Panel (01/13/17 04:21) Valproic Acid (Depakene) (01/13/17 04:21) Psych Screen (01/13/17 04:21) Drug Screen, Random Urine (01/13/17 04:21) Alcohol (Ethanol) (01/13/17 04:21) Salicylates (Aspirin) (01/13/17 04:21) Tylenol (Acetaminophen) (01/13/17 04:21) Diet Heart Healthy (01/13/17 Breakfast) Diet Regular Basic (01/13/17 Lunch) Ed Discharge Order (01/13/17 13:07) Labs Laboratory Tests Test 01/13/17 04:20 White Blood Count 11.6 TH/MM3 Red Blood Count 5.24 MIL/MM3 Hemoglobin 16.1 GM/DL Hematocrit 46.8 % Mean Corpuscular Volume 89.2 FL Mean Corpuscular Hemoglobin 30.7 PG Mean Corpuscular Hemoglobin Concent 34.3 % Red Cell Distribution Width 13.6 % Platelet Count 295 TH/MM3 Mean Platelet Volume 8.3 FL Neutrophils (%) (Auto) 71.2 % Lymphocytes (%) (Auto) 19.4 % Monocytes (%) (Auto) 7.0 % Eosinophils (%) (Auto) 1.7 % Basophils (%) (Auto) 0.7 % Neutrophils # (Auto) 8.2 TH/MM3 Lymphocytes # (Auto) 2.2 TH/MM3 Monocytes # (Auto) 0.8 TH/MM3 Eosinophils # (Auto) 0.2 TH/MM3 Basophils # (Auto) 0.1 TH/MM3 CBC Comment DIFF FINAL Differential Comment Blood Urea Nitrogen 12 MG/DL Creatinine 1.05 MG/DL Random Glucose 102 MG/DL Total Protein 7.8 GM/DL Albumin 4.0 GM/DL Calcium Level 8.5 MG/DL Alkaline Phosphatase 97 U/L Aspartate Amino Transf (AST/SGOT) 30 U/L Alanine Aminotransferase (ALT/SGPT) 31 U/L Total Bilirubin 1.1 MG/DL Sodium Level 141 MEQ/L Potassium Level 4.0 MEQ/L Chloride Level 104 MEQ/L Carbon Dioxide Level 28.7 MEQ/L Anion Gap 8 MEQ/L Estimat Glomerular Filtration Rate 82 ML/MIN Salicylates Level LESS THAN 1.7 MG/DL Urine Opiates Screen NEG Acetaminophen Level LESS THAN 2.0 MCG/ML Urine Barbiturates Screen NEG Valproic Acid (Depakene) Level 3 MCG/ML Urine Amphetamines Screen NEG Urine Benzodiazepines Screen NEG Urine Cocaine Screen NEG Urine Cannabinoids Screen NEG Ethyl Alcohol Level 3 MG/DL MDM Supervised Visit with TAYLOR: No Narrative Course ORQIUDEA Lew, has evaluated the patient lifted the Vang act and cleared the patient for discharge. The patient has plan to follow-up at [facility] drug detox. Patient contracts safety. Denies suicidal or homicidal ideations. Patient will be provided community resource packet to [facility] for follow-up. Has friends and family for support. Patient is medically cleared for discharge. Diagnosis Primary Impression: Substance induced mood disorder Referrals: Primary Care Physician Patient Instructions: General Instructions, Mood Disorders (ED), Polysubstance Abuse (ED) Additional Instruction: Contract safety to your self and others Stop using drugs Follow-up with psychiatry Follow-up with primary care provider Follow-up with Bennett Shine Return to the emergency department immediately with worsening of symptoms Med/Other Pt SpecificInfo: No Meds Exist/No RX given Disposition: 01 DISCHARGE HOME Condition: Stable Yelena White Jan 13, 2017 13:07
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
== END 2017-01-13 13:35 | disposition home or self-care (01) ==
LOC: NEPD 04:10
DX: F19.94 Other psychoactive substance use, unspecified with psychoactive substance-induced mood disorder (principal); F31.9 Bipolar disorder, unspecified; F90.9 Attention-deficit hyperactivity disorder, unspecified type; F41.9 Anxiety disorder, unspecified; I10 Essential (primary) hypertension; R56.9 Unspecified convulsions; Z59.0 Homelessness; Z72.0 Tobacco use; Z79.899 Other long term (current) drug therapy
CPT/HCPCS: 80053; 80164; 80307; 85025; 99283

== ENCOUNTER 2017-01-19 16:17 | Emergency (ER) | payer OTHER ==
[~2017-01-19] VITALS: Ht 182.9 cm; Wt 89.0 kg
[~2017-01-19 16:17] MED LIST changes: +DEPA500T PO; -NITR100C4 PO; +SERO100T PO
[2017-01-19 16:34] VITALS: BP 145/75; PULSE 102; RESP 17; TEMP 97.8; O2SAT 97
--- NOTE | 2017-01-19 17:04 | PD ---
HPI Chief Complaint: Psychiatric Symptoms Time Seen by Provider: 16:43 Travel History International Travel<30 days: No Contact w/Intl Traveler<30days: No Traveled to known affect area: No History of Present Illness HPI Patient is a 31-year-old male presents emergency department for the inability to walk under Lucas act. Patient states he smokes and came to today. He is somewhat bizarre behavior but is alert and awake and oriented. Denies any physical pain denies chest pain shortness breath abdominal pain nausea vomiting diarrhea, symptoms started just prior to arrival. Moderate in severity, gradually improving, context as above. PFSH Past Medical History Hx Anticoagulant Therapy: No ADHD: Yes Arthritis: No Autoimmune Disease: No Bipolar Disorder: Yes Anxiety: Yes Depression: Yes Heart Rhythm Problems: No Cancer: No Cardiovascular Problems: Yes (HTN) High Cholesterol: No Chemotherapy: No Chest Pain: No Congestive Heart Failure: No Cerebrovascular Accident: No Diabetes: No Diminished Hearing: No Genitourinary: No Headaches: No Hypertension: Yes Implanted Vascular Access Dvce: Yes (INFUSAPORT RT CHEST/LT HAND OSTEOMYL) Musculoskeletal: Yes Neurologic: No Psychiatric: Yes Reproductive: No Respiratory: No Migraines: No Seizures: Yes (skull FX age 3) Tetanus Vaccination: < 5 Years Influenza Vaccination: No Past Surgical History Abdominal Surgery: No Cardiac Surgery: No Ear Surgery: No Endocrine Surgery: No Eye Surgery: No Genitourinary Surgery: No Gynecologic Surgery: No Hysterectomy: No Joint Replacement: Yes (RT FEMUR) Neurologic Surgery: No Oral Surgery: No Thoracic Surgery: No Other Surgery: Yes (pins in right femur ) Social History Alcohol Use: Yes (EVERY DAY) Tobacco Use: Yes (EVERY DAY) Substance Use: Yes ([facility]) Allergies-Medications (Allergen,Severity, Reaction): Coded Allergies: bee venom protein (honey bee) (Verified Allergy, Unknown, SWOLLEN, ) Reported Meds & Prescriptions Reported Meds & Active Scripts Active Reported Depakote DR (Divalproex Sodium) 500 Mg Tabdr 500 Mg PO BID Seroquel (Quetiapine Fumarate) 100 Mg Tab 100 Mg PO DAILY Latuda (Lurasidone) 20 Mg Tab 20 Mg PO DAILY Review of Systems Except as stated in HPI: all other systems reviewed are Neg Physical Exam Narrative GENERAL: Well-developed well-nourished, unkempt in no obvious distress. Somewhat bizarre behavior SKIN: Focused skin assessment warm/dry. HEAD: Atraumatic. Normocephalic. EYES: Pupils equal and round. No scleral icterus. No injection or drainage. ENT: No nasal bleeding or discharge. Mucous membranes pink and moist. NECK: Trachea midline. No JVD. CARDIOVASCULAR: Regular rate and rhythm. No murmur appreciated. RESPIRATORY: No accessory muscle use. Clear to auscultation. Breath sounds equal bilaterally. GASTROINTESTINAL: Abdomen soft, non-tender, nondistended. Hepatic and splenic margins not palpable. MUSCULOSKELETAL: No obvious deformities. No clubbing. No cyanosis. No edema. NEUROLOGICAL: Awake and alert. Alert and awake and oriented, cranial nerves II through XII are grossly intact and nonfocal, 5 out of 5 strength in all 4 extremity's. Normal speech. PSYCHIATRIC: Appropriate mood and affect; insight and judgment normal. Data Data Last Documented VS Vital Signs Date Time Temp Pulse Resp B/P (MAP) Pulse Ox O2 Delivery O2 Flow Rate FiO2 01/19/17 17:50 98.0 96 17 120/77 (91) 99 Orders Orders Ed Discharge Order (01/19/17 17:24) [facility] Medical Decision Making Medical Screen Exam Complete: Yes Emergency Medical Condition: Yes Differential Diagnosis K2 intoxication, substance abuse, traumatic injury unlikely. Narrative Course Patient roomed in emergency department, he appears well and atraumatic. There is to be under the influence of stimulant drugs. We'll continue to monitor in the emergency department for clinical sobriety for discharge. No indication further workup at this time. At 1730 the patient approached nursing stating he wanted to go home, he is alert and awake and oriented and while he is bizarre behavior understands the ramifications of leaving. He states is going to take the bus home for the night. There is no indication to hold him here against his will. At this time he'll be released and his own recognizance. Diagnosis Primary Impression: Substance abuse Referrals: [facility] Disposition: 01 DISCHARGE HOME Condition: Stable Luis F Osuna MD Jan 19, 2017 17:04
[2017-01-19 17:50] VITALS: BP 120/77; TEMP 98
== END 2017-01-19 17:55 | disposition home or self-care (01) ==
LOC: NEPE 16:17
DX: F19.10 Other psychoactive substance abuse, uncomplicated (principal); F31.9 Bipolar disorder, unspecified
CPT/HCPCS: 99283

== ENCOUNTER 2017-01-21 19:57 | Emergency (ER) | payer OTHER ==
[~2017-01-21] VITALS: Ht 180.3 cm; Wt 85.0 kg
[2017-01-21 20:12] VITALS: BP 163/101; PULSE 133; RESP 20; TEMP 100.3; O2SAT 96
[2017-01-21] MEDS ORDERED: HALOPERIDOL LACTATE 5 MG/ML AMP IM ONE (20:15)
[2017-01-21] MEDS ORDERED: LORazepam 2 MG/ML VIAL IM ONE (20:15)
[2017-01-21] MEDS ORDERED: ACETAMINOPHEN 325 MG TAB PO ONE (20:15)
--- NOTE | 2017-01-21 22:05 | PD ---
HPI . Intoxication Chief Complaint: Alcohol/Drug Intoxication Time Seen by Provider: 20:04 Travel History International Travel<30 days: No Contact w/Intl Traveler<30days: No Traveled to known affect area: No History of Present Illness HPI This patient was brought to us as a Marchman Act because of intoxication. He has a history of huffing. He has reportedly been huffing tonight and the police do not feel that he is capable of caring for himself. He is homeless. The patient has no complaints. He was noted to have a low-grade temperature but denies any symptoms related to fever. Specifically, he denies any upper respiratory symptoms, cough, shortness of breath, vomiting, diarrhea, urinary tract symptoms, skin lesions. PFSH Past Medical History Hx Anticoagulant Therapy: No ADHD: Yes Arthritis: No Autoimmune Disease: No Bipolar Disorder: Yes Anxiety: Yes Depression: Yes Heart Rhythm Problems: No Cancer: No Cardiovascular Problems: Yes (HTN) High Cholesterol: No Chemotherapy: No Chest Pain: No Congestive Heart Failure: No Cerebrovascular Accident: No Diabetes: No Diminished Hearing: No Genitourinary: No Headaches: No Hypertension: Yes Implanted Vascular Access Dvce: Yes (INFUSAPORT RT CHEST/LT HAND OSTEOMYL) Musculoskeletal: Yes Neurologic: No Psychiatric: Yes Reproductive: No Respiratory: No Migraines: No Seizures: Yes (skull FX age 3) Tetanus Vaccination: > 5 Years Past Surgical History Surgical History: Unable to Obtain Abdominal Surgery: No Cardiac Surgery: No Ear Surgery: No Endocrine Surgery: No Eye Surgery: No Genitourinary Surgery: No Gynecologic Surgery: No Hysterectomy: No Joint Replacement: Yes (RT FEMUR) Neurologic Surgery: No Oral Surgery: No Thoracic Surgery: No Other Surgery: Yes (pins in right femur ) Social History Alcohol Use: Yes Tobacco Use: Yes (one pack per day) Substance Use: Yes (Huffing,Dust, Meth) Allergies-Medications (Allergen,Severity, Reaction): Coded Allergies: bee venom protein (honey bee) (Verified Allergy, Unknown, SWOLLEN, ) Reported Meds & Prescriptions Reported Meds & Active Scripts Active Reported Depakote DR (Divalproex Sodium) 500 Mg Tabdr 500 Mg PO BID Seroquel (Quetiapine Fumarate) 100 Mg Tab 100 Mg PO DAILY Latuda (Lurasidone) 20 Mg Tab 20 Mg PO DAILY Review of Systems Except as stated in HPI: all other systems reviewed are Neg Physical Exam Narrative GENERAL: Initially loud and uncooperative. He quickly settled down. SKIN: Warm and dry. HEAD: Normocephalic/atraumatic. EYES: Pupils are equal. Extraocular movements are intact. NECK: Normal range of motion. CARDIOVASCULAR: Regular rate and rhythm. Heart sounds are normal. RESPIRATORY: Nonlabored respirations. Lungs are clear with good air movement throughout. ABDOMEN: Soft and nontender. MUSCULOSKELETAL: Atraumatic. NEUROLOGICAL: Nonfocal. PSYCHIATRIC: Appropriate mood and affect. Data Data Last Documented VS Vital Signs Date Time Temp Pulse Resp B/P (MAP) Pulse Ox O2 Delivery O2 Flow Rate FiO2 01/21/17 20:30 20 01/21/17 20:16 133 96 01/21/17 20:12 100.3 163/101 (121) Orders Orders Haloperidol Inj (Haldol Inj) (01/21/17 20:15) Lorazepam Inj (Ativan Inj) (01/21/17 20:15) Acetaminophen (Tylenol) (01/21/17 20:15) Restraints Non-Violent KASHIF.Q3H (01/21/17 20:08) MDM Medical Decision Making Medical Screen Exam Complete: Yes Emergency Medical Condition: Yes Differential Diagnosis Differential diagnosis of altered mental status includes but is not limited to infection, electrolyte abnormality, neurological event, intoxication Narrative Course This patient presents as a Marchman Act because of intoxication. Law enforcement does not feel that he is capable of caring for himself. The patient initially had a low-grade temperature and tachycardia. He has been treated with Tylenol as well as IM Haldol IM Ativan. He is now resting comfortably and his vital signs have normalized. He is now safe for discharge. He will be allowed to "sleep it off." Diagnosis Primary Impression: Substance abuse Disposition: DISCHARGE HOME Condition: Stable Lindsay Yeung MD Jan 21, 2017 22:05
[2017-01-21 22:12] VITALS: BP 143/78; PULSE 93; RESP 20; TEMP 98.5; O2SAT 97
--- NOTE | 2017-01-22 05:22 | PD ---
Physical Exam Date Seen by Provider: Jan 22, 2017 Time Seen by Provider: 05:21 Data Data Last Documented VS Vital Signs Date Time Temp Pulse Resp B/P (MAP) Pulse Ox O2 Delivery O2 Flow Rate FiO2 01/21/17 22:12 98.5 93 20 143/78 (99) 97 Orders Orders Haloperidol Inj (Haldol Inj) (01/21/17 20:15) Lorazepam Inj (Ativan Inj) (01/21/17 20:15) Acetaminophen (Tylenol) (01/21/17 20:15) Restraints Non-Violent KASHIF.Q3H (01/21/17 20:08) Ed Discharge Order (01/21/17 22:05) [facility] Medical Record Reviewed: Yes Supervised Visit with TAYLOR: Yes Differential Diagnosis . Narrative Course The patient now is sobered up and is able to care for himself. The patient is medically stable for discharge. Diagnosis Primary Impression: Substance abuse Patient Instructions: General Instructions Additional Instruction: Rest. Increase fluids. Avoid alcohol. Avoid illegal substances. Follow-up with [facility]ri[facility] for detox. Do not operate a car or any heavy machinery under the influence of alcohol or drugs. Follow-up with a medical doctor this week. Return to the ER for emergencies Med/Other Pt SpecificInfo: No Meds Exist/No RX given Disposition: 01 DISCHARGE HOME Condition: Stable Steve Whaley Jan 22, 2017 05:22
== END 2017-01-22 06:29 | disposition home or self-care (01) ==
LOC: NEPD 19:57
DX: F19.10 Other psychoactive substance abuse, uncomplicated (principal); R00.0 Tachycardia, unspecified; I10 Essential (primary) hypertension; F90.9 Attention-deficit hyperactivity disorder, unspecified type; F31.9 Bipolar disorder, unspecified; F41.9 Anxiety disorder, unspecified; F17.200 Nicotine dependence, unspecified, uncomplicated; Z59.0 Homelessness; Z79.899 Other long term (current) drug therapy
CPT/HCPCS: 96372; 99284; J1630; J2060

== ENCOUNTER 2017-01-22 15:52 | Emergency (ER) | payer OTHER ==
[~2017-01-22] VITALS: Ht 182.9 cm; Wt 82.5 kg
[2017-01-22 16:13] VITALS: BP 169/108; PULSE 81; RESP 17; TEMP 98.3; O2SAT 96
[2017-01-22 16:21] VITALS: BP 169/108; PULSE 81; RESP 17; TEMP 98.3; O2SAT 96
--- NOTE | 2017-01-22 16:48 | PD ---
HPI Chief Complaint: Medical Clearance Time Seen by Provider: 16:23 Travel History International Travel<30 days: No Contact w/Intl Traveler<30days: No Traveled to known affect area: No History of Present Illness HPI 31-year-old male presents to the emergency room under Vang act initiated by police department for evaluation of drug intoxication. According to Vang act, patient was wandering around, in and out of traffic, clearly intoxicated after huffing something. Patient denies suicidal or homicidal ideation. Denies any medical complaints. Patient is uncooperative with history and would just like to leave. States he is competent and will do geometry to prove it. He admitted to smoking marijuana and only admitted to huffing something after he was confronted. PFSH Past Medical History Hx Anticoagulant Therapy: No ADHD: Yes Arthritis: No Autoimmune Disease: No Bipolar Disorder: Yes Anxiety: Yes Depression: Yes Heart Rhythm Problems: No Cancer: No Cardiovascular Problems: Yes (HTN) High Cholesterol: No Chemotherapy: No Chest Pain: No Congestive Heart Failure: No Cerebrovascular Accident: No Diabetes: No Diminished Hearing: No Genitourinary: No Headaches: No Hypertension: Yes Implanted Vascular Access Dvce: Yes (INFUSAPORT RT CHEST/LT HAND OSTEOMYL) Musculoskeletal: Yes Neurologic: No Psychiatric: Yes Reproductive: No Respiratory: No Migraines: No Seizures: Yes (skull FX age 3) Past Surgical History Abdominal Surgery: No Cardiac Surgery: No Ear Surgery: No Endocrine Surgery: No Eye Surgery: No Genitourinary Surgery: No Gynecologic Surgery: No Hysterectomy: No Joint Replacement: Yes (RT FEMUR) Neurologic Surgery: No Oral Surgery: No Thoracic Surgery: No Other Surgery: Yes (pins in right femur ) Social History Alcohol Use: Yes Tobacco Use: Yes (one pack per day) Substance Use: Yes (Huffing,Dust, Meth) Allergies-Medications (Allergen,Severity, Reaction): Coded Allergies: bee venom protein (honey bee) (Verified Allergy, Unknown, SWOLLEN, ) Reported Meds & Prescriptions Reported Meds & Active Scripts Active Reported Depakote DR (Divalproex Sodium) 500 Mg Tabdr 500 Mg PO BID Seroquel (Quetiapine Fumarate) 100 Mg Tab 100 Mg PO DAILY Latuda (Lurasidone) 20 Mg Tab 20 Mg PO DAILY Review of Systems Except as stated in HPI: all other systems reviewed are Neg Physical Exam Narrative GENERAL: Well-nourished, well-developed male in no acute distress. Afebrile. Ambulatory. SKIN: Focused skin assessment warm/dry. HEAD: Normocephalic. EYES: No scleral icterus. No injection or drainage. NECK: Supple, trachea midline. No JVD or lymphadenopathy. CARDIOVASCULAR: Regular rate and rhythm without murmurs, gallops, or rubs. RESPIRATORY: Breath sounds equal bilaterally. No accessory muscle use. PSYCHIATRIC: No delusional thought processes. No hallucinations. Flat affect. Data Data Last Documented VS Vital Signs Date Time Temp Pulse Resp B/P (MAP) Pulse Ox O2 Delivery O2 Flow Rate FiO2 01/22/17 16:21 98.3 81 17 169/108 (128) 96 Room Air Orders Orders Complete Blood Count With Diff (01/22/17 16:23) Psych Screen (01/22/17 16:23) Drug Screen, Random Urine (01/22/17 16:23) Alcohol (Ethanol) (01/22/17 16:23) Basic Metabolic Panel (Bmp) (01/22/17 16:23) Labs Laboratory Tests Test 01/22/17 16:50 White Blood Count 8.1 TH/MM3 Red Blood Count 4.73 MIL/MM3 Hemoglobin 14.7 GM/DL Hematocrit 42.6 % Mean Corpuscular Volume 90.2 FL Mean Corpuscular Hemoglobin 31.2 PG Mean Corpuscular Hemoglobin Concent 34.6 % Red Cell Distribution Width 13.4 % Platelet Count 233 TH/MM3 Mean Platelet Volume 8.3 FL Neutrophils (%) (Auto) 68.9 % Lymphocytes (%) (Auto) 18.7 % Monocytes (%) (Auto) 10.0 % Eosinophils (%) (Auto) 2.0 % Basophils (%) (Auto) 0.4 % Neutrophils # (Auto) 5.6 TH/MM3 Lymphocytes # (Auto) 1.5 TH/MM3 Monocytes # (Auto) 0.8 TH/MM3 Eosinophils # (Auto) 0.2 TH/MM3 Basophils # (Auto) 0.0 TH/MM3 CBC Comment DIFF FINAL Differential Comment Blood Urea Nitrogen 9 MG/DL Creatinine 1.16 MG/DL Random Glucose 82 MG/DL Calcium Level 8.7 MG/DL Sodium Level 140 MEQ/L Potassium Level 4.1 MEQ/L Chloride Level 106 MEQ/L Carbon Dioxide Level 27.8 MEQ/L Anion Gap 6 MEQ/L Estimat Glomerular Filtration Rate 73 ML/MIN Urine Opiates Screen NEG Urine Barbiturates Screen NEG Urine Amphetamines Screen NEG Urine Benzodiazepines Screen NEG Urine Cocaine Screen NEG Urine Cannabinoids Screen POS Ethyl Alcohol Level LESS THAN 3 MG/DL MDM Medical Decision Making Medical Screen Exam Complete: Yes Emergency Medical Condition: Yes Medical Record Reviewed: Yes Differential Diagnosis Bipolar disorder, malingering, medical clearance, depression, anxiety, substance abuse Narrative Course 31-year-old male presents to the emergency room under a Vang act initiated by Police Department after being found wandering in traffic and intoxicated. This is an inappropriate vang act. Should have been Bernstein's act because of concern for intoxication. Patient states he is competent and will do geometry to prove it. Denies suicidal or homicidal ideation. Denies any medical complaints. Denies chronic medical conditions or daily medications though he is noncooperative with history. Vital signs stable. CBC and BMP are unremarkable. Drug screen positive for cannabinoids. She is medically cleared for psychiatric evaluation. Condition: Stable Gabrielle Prieto Jan 22, 2017 16:48
[2017-01-22 17:20] LABS: AUTOMATED NEUTROPHIL # 5.6 TH/MM3 (1.8-7.7); BASOPHIL % 0.4 % (0.0-2.0); EOSINOPHIL # 0.2 TH/MM3 (0-0.4); HEMATOCRIT 42.6 % (39.0-51.0); HEMO FLAGS DIFF FINAL; LYMPH % 18.7 % (9.0-44.0); LYMPHOCYTE # 1.5 TH/MM3 (1.0-4.8); MEAN CELL VOLUME 90.2 FL (80.0-100.0); MEAN CORPUSCULAR HEMOGLOBIN 31.2 PG (27.0-34.0); MEAN CORPUSCULAR HGB CONC 34.6 % (32.0-36.0); NEUT % 68.9 % (16.0-70.0); PLATELET COUNT 233 TH/MM3 (150-450); RED BLOOD COUNT 4.73 MIL/MM3 (4.50-5.90); RED CELL DISTRIBUTION WIDTH 13.4 % (11.6-17.2); WHITE BLOOD COUNT 8.1 TH/MM3 (4.0-11.0)
[2017-01-22 17:38] LABS: ANION GAP 6 MEQ/L (5-15); BICARBONATE 27.8 MEQ/L (21.0-32.0); BLOOD UREA NITROGEN 9 MG/DL (7-18); CHLORIDE 106 MEQ/L (98-107); GLOMERULAR FILTRATION RATE 73 ML/MIN (>89); POTASSIUM 4.1 MEQ/L (3.5-5.1); SODIUM (NA) 140 MEQ/L (136-145)
[2017-01-22 17:39] LABS: ALCOHOL LESS THAN 3 MG/DL (0-5)
[2017-01-22 18:08] VITALS: BP 161/101; PULSE 77; RESP 18; TEMP 98.2; O2SAT 97
[2017-01-22 23:39] VITALS: BP 137/84; PULSE 78; RESP 20
[2017-01-23 02:18] VITALS: RESP 18
[2017-01-23 06:27] VITALS: BP 137/90; PULSE 78; RESP 18
[2017-01-23] MEDS ORDERED: HALOPERIDOL LACTATE 5 MG/ML AMP IM ONE (11:00)
[2017-01-23] MEDS ORDERED: LORazepam 2 MG/ML VIAL IM ONE (11:00)
[2017-01-23] MEDS ORDERED: diphenhydrAMINE HCL 50 MG/ML VIAL IM ONE (11:15)
[2017-01-23 11:27] VITALS: BP 134/82; PULSE 77; RESP 18; O2SAT 98
--- NOTE | 2017-01-23 11:57 | PD ---
History of Present Illness Chief Complaint: Medical Clearance Time Seen by Provider: 11:45 Travel History International Travel<30 Days: No Contact w/Intl Traveler<30days: No Known affected area: No Legal Status Legal Status: Vang Act History of Present Illness: Vang act for intoxication behavior. After observation and evaluation overnight , the patient is cognitively clear. No psychotic symptoms. Denies suicidal or homicidal ideation, plan or intent. Wants to go to work. Verbally luis for safety and competent to do so. PFSH Past Medical History Hx Anticoagulant Therapy: No ADHD: Yes Arthritis: No Autoimmune Disease: No Bipolar Disorder: Yes Anxiety: Yes Depression: Yes Heart Rhythm Problems: No Cancer: No Cardiovascular Problems: Yes (HTN) High Cholesterol: No Chemotherapy: No Chest Pain: No Congestive Heart Failure: No Cerebrovascular Accident: No Diabetes: No Diminished Hearing: No Genitourinary: No Headaches: No Hypertension: Yes Implanted Vascular Access Dvce: Yes (INFUSAPORT RT CHEST/LT HAND OSTEOMYL) Musculoskeletal: Yes Neurologic: No Psychiatric: Yes Reproductive: No Respiratory: No Migraines: No Seizures: Yes (skull FX age 3) Past Surgical History Abdominal Surgery: No Cardiac Surgery: No Ear Surgery: No Endocrine Surgery: No Eye Surgery: No Genitourinary Surgery: No Gynecologic Surgery: No Hysterectomy: No Joint Replacement: Yes (RT FEMUR) Neurologic Surgery: No Oral Surgery: No Thoracic Surgery: No Other Surgery: Yes (pins in right femur ) Psychiatric History Psychiatric History Hx Psychiatric Treatment: HX OF ADMISSION AT [facility]. Has outpatin tretametn at [facility]. History of Inpatient Treatment: Yes Guns or firearms in home: No Social History Hx Alcohol Use: Yes Hx Tobacco Use: Yes (one pack per day) Hx Substance Use: Yes (Huffing,Dust, Meth, TRIP-C) Substance Use Type: Crack, Heroin, Huffing Other Substances Used: HAS A HISTORY OF SUBSTANCE ABUSE Hx of Substance Use Treatment: Yes Allergies-Medications (Allergen,Severity, Reaction): Coded Allergies: bee venom protein (honey bee) (Verified Allergy, Unknown, SWOLLEN, ) Reported Meds & Prescriptions Reported Meds & Active Scripts Active Reported Depakote DR (Divalproex Sodium) 500 Mg Tabdr 500 Mg PO BID Seroquel (Quetiapine Fumarate) 100 Mg Tab 100 Mg PO DAILY Latuda (Lurasidone) 20 Mg Tab 20 Mg PO DAILY Review of Systems Except as stated in HPI: all other systems reviewed are Neg Mental Status Examination Appearance: Appropriate Consciousness: Alert Orientation: x4 Motor Activity: Normal gait Speech: Unremarkable Language: Adequate Fund of Knowledge: Adequate Attention and Concentration: Adequate Memory: Unremarkable Mood: Appropriate Affect: Appropriate Thought Process & Associations: Intact Thought Content: Appropriate Hallucination Type: None Delusion Type: None Suicidal Ideation: No Suicidal Plan: No Suicidal Intention: No Homicidal Ideation: No Homicidal Plan: No Homicidal Intention: No Insight: Adequate Judgment: Adequate MDM Medical Decision Making Medical Record Reviewed: Yes Assessment/Plan Patient interviewed at bedside, medical record reviewed, case discussed with nurse Jackson. No suicidal or homicidal ideation, plan or intent. Cognition intact. No longer intoxicated with substances. Orders Orders Complete Blood Count With Diff (01/22/17 16:23) Psych Screen (01/22/17 16:23) Drug Screen, Random Urine (01/22/17 16:23) Alcohol (Ethanol) (01/22/17 16:23) Basic Metabolic Panel (Bmp) (01/22/17 16:23) Diet Regular Basic (01/23/17 Breakfast) Diet Regular Basic (01/23/17 Lunch) Haloperidol Inj (Haldol Inj) (01/23/17 11:00) Lorazepam Inj (Ativan Inj) (01/23/17 11:00) Diphenhydramine Inj (Benadryl Inj) (01/23/17 11:15) Results Vital Signs Date Time Temp Pulse Resp B/P (MAP) Pulse Ox O2 Delivery O2 Flow Rate FiO2 01/23/17 11:27 77 18 134/82 (99) 98 Room Air 01/23/17 06:33 78 18 01/23/17 06:27 78 18 137/90 (106) Room Air 01/23/17 02:18 18 Room Air 01/22/17 23:39 78 20 137/84 (101) 01/22/17 18:08 98.2 77 18 161/101 (121) 97 Room Air 01/22/17 16:21 98.3 81 17 169/108 (128) 96 Room Air 01/22/17 16:13 98.3 81 17 169/108 (128) 96 01/22/17 16:12 17 Laboratory Tests Test 01/22/17 16:50 White Blood Count 8.1 Red Blood Count 4.73 Hemoglobin 14.7 Hematocrit 42.6 Mean Corpuscular Volume 90.2 Mean Corpuscular Hemoglobin 31.2 Mean Corpuscular Hemoglobin Concent 34.6 Red Cell Distribution Width 13.4 Platelet Count 233 Mean Platelet Volume 8.3 Neutrophils (%) (Auto) 68.9 Lymphocytes (%) (Auto) 18.7 Monocytes (%) (Auto) 10.0 Eosinophils (%) (Auto) 2.0 Basophils (%) (Auto) 0.4 Neutrophils # (Auto) 5.6 Lymphocytes # (Auto) 1.5 Monocytes # (Auto) 0.8 Eosinophils # (Auto) 0.2 Basophils # (Auto) 0.0 CBC Comment DIFF FINAL Differential Comment Blood Urea Nitrogen 9 Creatinine 1.16 Random Glucose 82 Calcium Level 8.7 Sodium Level 140 Potassium Level 4.1 Chloride Level 106 Carbon Dioxide Level 27.8 Anion Gap 6 Estimat Glomerular Filtration Rate 73 Urine Opiates Screen NEG Urine Barbiturates Screen NEG Urine Amphetamines Screen NEG Urine Benzodiazepines Screen NEG Urine Cocaine Screen NEG Urine Cannabinoids Screen POS Ethyl Alcohol Level LESS THAN 3 Diagnosis Primary Impression: Substance abuse Condition: Stable Arturo Blank MD Jan 23, 2017 11:57
--- NOTE | 2017-01-23 12:37 | PD ---
Physical Exam Date Seen by Provider: Jan 23, 2017 Time Seen by Provider: 12:34 Data Data Last Documented VS Vital Signs Date Time Temp Pulse Resp B/P (MAP) Pulse Ox O2 Delivery O2 Flow Rate FiO2 01/23/17 11:27 77 18 134/82 (99) 98 Room Air 01/22/17 18:08 98.2 Orders Orders Complete Blood Count With Diff (01/22/17 16:23) Psych Screen (01/22/17 16:23) Drug Screen, Random Urine (01/22/17 16:23) Alcohol (Ethanol) (01/22/17 16:23) Basic Metabolic Panel (Bmp) (01/22/17 16:23) Diet Regular Basic (01/23/17 Breakfast) Diet Regular Basic (01/23/17 Lunch) Haloperidol Inj (Haldol Inj) (01/23/17 11:00) Lorazepam Inj (Ativan Inj) (01/23/17 11:00) Diphenhydramine Inj (Benadryl Inj) (01/23/17 11:15) Ed Discharge Order (01/23/17 12:24) Labs Laboratory Tests Test 01/22/17 16:50 White Blood Count 8.1 TH/MM3 Red Blood Count 4.73 MIL/MM3 Hemoglobin 14.7 GM/DL Hematocrit 42.6 % Mean Corpuscular Volume 90.2 FL Mean Corpuscular Hemoglobin 31.2 PG Mean Corpuscular Hemoglobin Concent 34.6 % Red Cell Distribution Width 13.4 % Platelet Count 233 TH/MM3 Mean Platelet Volume 8.3 FL Neutrophils (%) (Auto) 68.9 % Lymphocytes (%) (Auto) 18.7 % Monocytes (%) (Auto) 10.0 % Eosinophils (%) (Auto) 2.0 % Basophils (%) (Auto) 0.4 % Neutrophils # (Auto) 5.6 TH/MM3 Lymphocytes # (Auto) 1.5 TH/MM3 Monocytes # (Auto) 0.8 TH/MM3 Eosinophils # (Auto) 0.2 TH/MM3 Basophils # (Auto) 0.0 TH/MM3 CBC Comment DIFF FINAL Differential Comment Blood Urea Nitrogen 9 MG/DL Creatinine 1.16 MG/DL Random Glucose 82 MG/DL Calcium Level 8.7 MG/DL Sodium Level 140 MEQ/L Potassium Level 4.1 MEQ/L Chloride Level 106 MEQ/L Carbon Dioxide Level 27.8 MEQ/L Anion Gap 6 MEQ/L Estimat Glomerular Filtration Rate 73 ML/MIN Urine Opiates Screen NEG Urine Barbiturates Screen NEG Urine Amphetamines Screen NEG Urine Benzodiazepines Screen NEG Urine Cocaine Screen NEG Urine Cannabinoids Screen POS Ethyl Alcohol Level LESS THAN 3 MG/DL [facility] Medical Record Reviewed: Yes Supervised Visit with TAYLOR: No Narrative Course 31-year-old male presented to the emergency room previously under Vang act initiated by police department after being found intoxicated in the street. This is an inappropriate Vang act, patient should've been placed under Lucas act. He denies suicidal homicidal ideation. He was seen by the psychiatrist this morning and Vang act was lifted. Patient is not felt to be a threat to himself or others at this time. He is seizure oriented and would like to leave so that he can go to work. He is stable for discharge. Vital signs stable and labs reviewed. Diagnosis Primary Impression: Substance abuse Patient Instructions: General Instructions, Medical Clearance for Substance Abuse Treatment (ED) Departure Forms: Work Release, Enter return to work date: Jan 23, 2017 Tests/Procedures Additional Instruction: Contract for safety. Don't use illicit substances. Return to ED if needed. Disposition: 01 DISCHARGE HOME Condition: Stable Gabrielle Prieto Jan 23, 2017 12:37
== END 2017-01-23 12:49 | disposition home or self-care (01) ==
LOC: NEPD 15:52 → NEPJ 01-23 12:49
DX: F19.10 Other psychoactive substance abuse, uncomplicated (principal); R56.9 Unspecified convulsions; F17.200 Nicotine dependence, unspecified, uncomplicated; F90.9 Attention-deficit hyperactivity disorder, unspecified type; F31.9 Bipolar disorder, unspecified; F41.9 Anxiety disorder, unspecified; I10 Essential (primary) hypertension; Z79.899 Other long term (current) drug therapy
CPT/HCPCS: 80048; 80307; 85025; 96372; 99284; J1630; J2060

== ENCOUNTER 2017-01-24 22:40 | Emergency (ER) | payer OTHER ==
[~2017-01-24] VITALS: Ht 180.3 cm; Wt 85.0 kg
[2017-01-24 22:48] VITALS: BP 133/84; PULSE 84; RESP 16; TEMP 98.6; O2SAT 96
--- NOTE | 2017-01-25 00:15 | PD ---
HPI Chief Complaint: Psychiatric Symptoms Time Seen by Provider: 00:02 Travel History International Travel<30 days: No Contact w/Intl Traveler<30days: No Traveled to known affect area: No History of Present Illness HPI 31-year-old male presents to the emergency department in the care of law enforcement as a [place] act as was identified to be "dusting"-huffing and was felt to not be able to make safe decisions regarding his health so presents at this time for assessment. No report of being suicidal or homicidal. Patient here denies being suicidal or homicidal. Patient states he does have an issue with huffing behavior and does have prior history of substance use but was not trying to kill himself and felt well at the time but was brought in for further evaluation. Patient voices no concerns or complaints. Patient's had no recent injury or fall. Patient denies shortness of breath or chest pain. PFSH Past Medical History Narrative Medical ADHD bipolar disorder polysubstance use hypertension femur surgery prior Infuse- a-Port; tobacco use alcohol use polysubstance use; nursing notes reviewed Hx Anticoagulant Therapy: No ADHD: Yes Arthritis: No Autoimmune Disease: No Bipolar Disorder: Yes Anxiety: Yes Depression: Yes Heart Rhythm Problems: No Cancer: No Cardiovascular Problems: Yes (HTN) High Cholesterol: No Chemotherapy: No Chest Pain: No Congestive Heart Failure: No Cerebrovascular Accident: No Diabetes: No Diminished Hearing: No Genitourinary: No Headaches: No Hypertension: Yes Implanted Vascular Access Dvce: Yes (INFUSAPORT RT CHEST/LT HAND OSTEOMYL) Musculoskeletal: Yes Neurologic: No Psychiatric: Yes Reproductive: No Respiratory: No Migraines: No Seizures: Yes (skull FX age 3) Tetanus Vaccination: Unknown Past Surgical History Abdominal Surgery: No Cardiac Surgery: No Ear Surgery: No Endocrine Surgery: No Eye Surgery: No Genitourinary Surgery: No Gynecologic Surgery: No Hysterectomy: No Joint Replacement: Yes (RT FEMUR) Neurologic Surgery: No Oral Surgery: No Thoracic Surgery: No Other Surgery: Yes (pins in right femur ) Social History Alcohol Use: Yes Tobacco Use: Yes (one pack per day) Substance Use: Yes (Huffing,Dust, Meth, TRIP-C) Allergies-Medications (Allergen,Severity, Reaction): Coded Allergies: bee venom protein (honey bee) (Verified Allergy, Unknown, SWOLLEN, ) Reported Meds & Prescriptions Reported Meds & Active Scripts Active Reported Depakote DR (Divalproex Sodium) 500 Mg Tabdr 500 Mg PO BID Seroquel (Quetiapine Fumarate) 100 Mg Tab 100 Mg PO DAILY Latuda (Lurasidone) 20 Mg Tab 20 Mg PO DAILY Review of Systems Except as stated in HPI: all other systems reviewed are Neg General / Constitutional: No: Fever, Chills Eyes: No: Visual changes HENT: No: Headaches, Neck Pain Cardiovascular: No: Chest Pain or Discomfort Respiratory: No: Cough, Shortness of Breath, Stridor Gastrointestinal: No: Nausea, Vomiting Genitourinary: No: Dysuria, Flank Pain Musculoskeletal: No: Myalgias, Arthralgias Skin: No Rash Neurologic: No: Weakness, Change in Mentation, Seizures Psychiatric: No: Anxiety Endocrine: No: Heat Intolerance Hematologic/Lymphatic: No: Easy Bruising Physical Exam Narrative GENERAL: Well-developed well-nourished male in no acute distress no respiratory distress; GCS 15 SKIN: Warm and dry. HEAD: Atraumatic. Normocephalic. EYES: Pupils equal and round. No scleral icterus. No injection or drainage. ENT: No nasal bleeding or discharge. Mucous membranes pink and moist. NECK: Trachea midline. No JVD. CARDIOVASCULAR: Regular rate and rhythm. RESPIRATORY: No accessory muscle use. Clear to auscultation. Breath sounds equal bilaterally. GASTROINTESTINAL: Abdomen soft, non-tender, nondistended. Hepatic and splenic margins not palpable. MUSCULOSKELETAL: Extremities without clubbing, cyanosis, or edema. No obvious deformities. NEUROLOGICAL: Awake and alert. No obvious cranial nerve deficits. Motor grossly within normal limits. Five out of 5 muscle strength in the arms and legs. Normal speech. PSYCHIATRIC: Appropriate mood and affect; insight and judgment normal. Data Data Last Documented VS Vital Signs Date Time Temp Pulse Resp B/P (MAP) Pulse Ox O2 Delivery O2 Flow Rate FiO2 01/24/17 22:48 98.6 84 16 133/84 (100) 96 Orders Orders Complete Blood Count With Diff (01/25/17 00:02) Comprehensive Metabolic Panel (01/25/17 00:02) Thyroid Stimulating Hormone (01/25/17 00:02) Psych Screen (01/25/17 00:02) Drug Screen, Random Urine (01/25/17 00:02) Alcohol (Ethanol) (01/25/17 00:02) Salicylates (Aspirin) (01/25/17 00:02) Tylenol (Acetaminophen) (01/25/17 00:02) Labs Laboratory Tests Test 01/25/17 00:45 White Blood Count 10.9 TH/MM3 Red Blood Count 5.00 MIL/MM3 Hemoglobin 15.3 GM/DL Hematocrit 44.8 % Mean Corpuscular Volume 89.6 FL Mean Corpuscular Hemoglobin 30.6 PG Mean Corpuscular Hemoglobin Concent 34.1 % Red Cell Distribution Width 13.6 % Platelet Count 267 TH/MM3 Mean Platelet Volume 7.9 FL Neutrophils (%) (Auto) 63.9 % Lymphocytes (%) (Auto) 20.3 % Monocytes (%) (Auto) 11.2 % Eosinophils (%) (Auto) 3.8 % Basophils (%) (Auto) 0.8 % Neutrophils # (Auto) 6.9 TH/MM3 Lymphocytes # (Auto) 2.2 TH/MM3 Monocytes # (Auto) 1.2 TH/MM3 Eosinophils # (Auto) 0.4 TH/MM3 Basophils # (Auto) 0.1 TH/MM3 CBC Comment DIFF FINAL Differential Comment Blood Urea Nitrogen 22 MG/DL Creatinine 1.40 MG/DL Random Glucose 105 MG/DL Total Protein 7.5 GM/DL Albumin 3.6 GM/DL Calcium Level 8.3 MG/DL Alkaline Phosphatase 93 U/L Aspartate Amino Transf (AST/SGOT) 29 U/L Alanine Aminotransferase (ALT/SGPT) 29 U/L Total Bilirubin 0.8 MG/DL Sodium Level 137 MEQ/L Potassium Level 4.2 MEQ/L Chloride Level 103 MEQ/L Carbon Dioxide Level 25.7 MEQ/L Anion Gap 8 MEQ/L Estimat Glomerular Filtration Rate 59 ML/MIN Thyroid Stimulating Hormone 3rd Gen 2.920 uIU/ML Salicylates Level LESS THAN 1.7 MG/DL Urine Opiates Screen NEG Acetaminophen Level LESS THAN 2.0 MCG/ML Urine Barbiturates Screen NEG Urine Amphetamines Screen NEG Urine Benzodiazepines Screen NEG Urine Cocaine Screen NEG Urine Cannabinoids Screen POS Ethyl Alcohol Level LESS THAN 3 MG/DL MDM Medical Decision Making Medical Screen Exam Complete: Yes Emergency Medical Condition: Yes Medical Record Reviewed: Yes Interpretation(s) CBC & BMP Diagram 01/25/17 00:45 Total Protein 7.5, Albumin 3.6, Calcium Level 8.3 L, Alkaline Phosphatase 93, Aspartate Amino Transf (AST/SGOT) 29, Alanine Aminotransferase (ALT/SGPT) 29, Total Bilirubin 0.8 Vital Signs Date Time Temp Pulse Resp B/P (MAP) Pulse Ox O2 Delivery O2 Flow Rate FiO2 01/24/17 22:48 98.6 84 16 133/84 (100) 96 Differential Diagnosis Huffing exposure, substance ingestion, electronic disturbance Narrative Course Cooperative patient presents as [facility] act by law enforcement here patient reports that he was fine he does have a dependency on huffing but was not trying to harm himself or others and has no intention of wanting to harm himself has not been suicidal. Patient does have history of frequent marijuana use. Patient denies any recent injuries. Specimens collected and sent for resulting Patient is identified to have some mild renal insufficiency most likely due to poor oral hydration otherwise values are found to be grossly normal range and tox screen is positive for cannabinoids use Patient is stable for outpatient management and is referred to [facility]. Diagnosis Primary Impression: Huffing Additional Impression: Substance abuse Referrals: [facility] 1 day Patient Instructions: General Instructions Additional Instructions: Increase fluid hydration Follow-up with [facility] Return to the emergency department for any concerns or change in condition Discontinue substance use Med/Other Pt SpecificInfo: No Change to Meds Disposition: 01 DISCHARGE HOME Condition: Stable Sharri Boyd MD Jan 25, 2017 00:15
[2017-01-25 01:04] LABS: AUTOMATED NEUTROPHIL # 6.9 TH/MM3 (1.8-7.7); BASOPHIL # 0.1 TH/MM3 (0-0.2); BASOPHIL % 0.8 % (0.0-2.0); EOSINOPHIL # 0.4 TH/MM3 (0-0.4); EOSINOPHIL % 3.8 % (0.0-4.0); HEMATOCRIT 44.8 % (39.0-51.0); HEMO FLAGS DIFF FINAL; LYMPH % 20.3 % (9.0-44.0); LYMPHOCYTE # 2.2 TH/MM3 (1.0-4.8); MEAN CELL VOLUME 89.6 FL (80.0-100.0); MEAN CORPUSCULAR HEMOGLOBIN 30.6 PG (27.0-34.0); MEAN CORPUSCULAR HGB CONC 34.1 % (32.0-36.0); MONO % 11.2 % (0.0-8.0); NEUT % 63.9 % (16.0-70.0); PLATELET COUNT 267 TH/MM3 (150-450); RED CELL DISTRIBUTION WIDTH 13.6 % (11.6-17.2); WHITE BLOOD COUNT 10.9 TH/MM3 (4.0-11.0)
[2017-01-25 01:35] LABS: ACETAMINOPHEN LESS THAN 2.0 MCG/ML (10.0-30.0); ALCOHOL LESS THAN 3 MG/DL (0-5); ALKALINE PHOSPHATASE 93 U/L (45-117); ALT (GPT) 29 U/L (12-78); ANION GAP 8 MEQ/L (5-15); AST (GOT) 29 U/L (15-37); BICARBONATE 25.7 MEQ/L (21.0-32.0); BLOOD UREA NITROGEN 22 MG/DL (7-18); CHLORIDE 103 MEQ/L (98-107); GLOMERULAR FILTRATION RATE 59 ML/MIN (>89); POTASSIUM 4.2 MEQ/L (3.5-5.1); SODIUM (NA) 137 MEQ/L (136-145); TOTAL BILIRUBIN ADULT 0.8 MG/DL (0.2-1.0)
[2017-01-25 06:51] VITALS: BP 130/72
== END 2017-01-25 06:53 | disposition home or self-care (01) ==
LOC: NEPC 22:40
DX: F19.20 Other psychoactive substance dependence, uncomplicated (principal); I10 Essential (primary) hypertension; F31.9 Bipolar disorder, unspecified; F17.200 Nicotine dependence, unspecified, uncomplicated
CPT/HCPCS: 80053; 80307; 84443; 85025; 99282

== ENCOUNTER 2017-02-03 18:41 | Observation (INO) | payer OTHER ==
[~2017-02-03] VITALS: Ht 180.3 cm; Wt 70.0 kg
[2017-02-03 18:46] VITALS: BP 153/79; PULSE 124; RESP 18; TEMP 101.1; O2SAT 97
[2017-02-03 18:59] VITALS: BP 153/79; PULSE 129; RESP 30; TEMP 99.1; O2SAT 97
[2017-02-03] MEDS ORDERED: LORazepam 2 MG/ML VIAL IM ONE (19:00)
[2017-02-03] MEDS ORDERED: HALOPERIDOL LACTATE 5 MG/ML AMP IM ONE (19:00)
[2017-02-03] MEDS ORDERED: SODIUM CHLOR 0.9% 1000 ML INJ 1,000 ML IV ONE (19:01)
--- NOTE | 2017-02-03 19:12 | PD ---
HPI Chief Complaint: Alcohol/Drug Intoxication Time Seen by Provider: 19:01 Travel History International Travel<30 days: No Contact w/Intl Traveler<30days: No Traveled to known affect area: No History of Present Illness HPI 31-year-old male presents to the emergency department via EMS after being found at the side of the road obviously under the influence of drugs. Patient has been seen here multiple times for polysubstance abuse. Patient is alert and answering questions appropriately. He states he took 32 Coricidin, 2 whip its, 2 dusters. Patient denies any complaints at this time. He states that he took all this to become high. He denies any suicidal or homicidal ideation. Patient reports no chronic medical problems and takes no prescribed medications. Patient is noted to be febrile in the emergency department. He states he has used IV drugs in the past, but was probably approximately a month ago. He also states that he has used Flakka, but cannot remember if he used it today. Patient is aggressive on arrival and is placed in restraints as he cannot follow commands at this time. Patient was placed under [place] act by local police. Severity is moderate to severe. No exacerbating or alleviating factors. PFSH Past Medical History Hx Anticoagulant Therapy: No ADHD: Yes Arthritis: No Autoimmune Disease: No Bipolar Disorder: Yes Anxiety: Yes Depression: Yes Heart Rhythm Problems: No Cancer: No Cardiovascular Problems: Yes (HTN) High Cholesterol: No Chemotherapy: No Chest Pain: No Congestive Heart Failure: No Cerebrovascular Accident: No Diabetes: No Diminished Hearing: No Genitourinary: No Headaches: No Hypertension: Yes Implanted Vascular Access Dvce: Yes (INFUSAPORT RT CHEST/LT HAND OSTEOMYL) Musculoskeletal: Yes Neurologic: No Psychiatric: Yes Reproductive: No Respiratory: No Migraines: No Seizures: Yes (skull FX age 3) Past Surgical History Abdominal Surgery: No Cardiac Surgery: No Ear Surgery: No Endocrine Surgery: No Eye Surgery: No Genitourinary Surgery: No Gynecologic Surgery: No Hysterectomy: No Joint Replacement: Yes (RT FEMUR) Neurologic Surgery: No Oral Surgery: No Thoracic Surgery: No Other Surgery: Yes (pins in right femur ) Social History Alcohol Use: Yes Tobacco Use: Yes (one pack per day) Substance Use: Yes (Huffing,Dust, Meth, TRIP-C) Allergies-Medications (Allergen,Severity, Reaction): Coded Allergies: bee venom protein (honey bee) (Verified Allergy, Unknown, SWOLLEN, 02/03/17 ) Reported Meds & Prescriptions Reported Meds & Active Scripts Active Reported Depakote DR (Divalproex Sodium) 500 Mg Tabdr 500 Mg PO BID Seroquel (Quetiapine Fumarate) 100 Mg Tab 100 Mg PO DAILY Latuda (Lurasidone) 20 Mg Tab 20 Mg PO DAILY Review of Systems Except as stated in HPI: all other systems reviewed are Neg Physical Exam Narrative GENERAL: Well-nourished, well-developed male patient, temporal 101.1. Patient is alert and oriented to person, place, time. SKIN: Focused skin assessment warm/dry. HEAD: Normocephalic. Atraumatic. EYES: No scleral icterus. No injection or drainage. NECK: Supple, trachea midline. No JVD or lymphadenopathy. CARDIOVASCULAR: Regular rate and rhythm without murmurs, gallops, or rubs. Bilateral radial and pedal pulses are 2+. RESPIRATORY: Breath sounds equal bilaterally. No accessory muscle use. Lungs sounds are clear to auscultation. GASTROINTESTINAL: Abdomen soft, non-tender, nondistended. MUSCULOSKELETAL: No cyanosis, or edema. BACK: Nontender without obvious deformity. No CVA tenderness. Data Data Last Documented VS Vital Signs Date Time Temp Pulse Resp B/P (MAP) Pulse Ox O2 Delivery O2 Flow Rate FiO2 02/03/17 20:46 95 14 150/88 (108) 96 Room Air 02/03/17 18:59 99.1 Orders Orders Lorazepam Inj (Ativan Inj) (02/03/17 19:00) Haloperidol Inj (Haldol Inj) (02/03/17 19:00) Electrocardiogram (02/03/17 19:01) Complete Blood Count With Diff (02/03/17 19:01) Comprehensive Metabolic Panel (02/03/17 19:01) Prothrombin Time / Inr (Pt) (02/03/17 19:01) Act Partial Throm Time (Ptt) (02/03/17 19:01) Urinalysis - C+S If Indicated (02/03/17 19:01) Iv Access Insert/Monitor (02/03/17 19:01) Ecg Monitoring (02/03/17 19:01) Oximetry (02/03/17 19:01) Sodium Chloride 0.9% Flush (Ns Flush) (02/03/17 19:15) Sodium Chlor 0.9% 1000 Ml Inj (Ns 1000 M (02/03/17 19:01) Call Poison Control (02/03/17 19:01) Drug Screen, Random Urine (02/03/17 19:01) Alcohol (Ethanol) (02/03/17 19:01) Salicylates (Aspirin) (02/03/17 19:01) Tylenol (Acetaminophen) (02/03/17 19:01) Blood Culture (02/03/17 19:02) Lactic Acid Sepsis Protocol (02/03/17 19:02) Restraints Violent (02/03/17 19:12) Cath For Specimen (02/03/17:19) Lorazepam Inj (Ativan Inj) (02/03/17 21:00) Consult Psychiatry (02/03/17 ) Place In Observation (02/03/17 ) Vital Signs (Adult) Q4H (02/03/17 20:48) Neuro Checks Q4H (02/03/17 20:48) Activity Oob With Assistance (02/03/17 20:48) Hand Hardener / Telemetry .CONTINUOUS (02/03/17 20:48) Intake + Output KASHIF.QSHIFT (02/03/17 20:48) Diet Regular Basic (02/04/17 Breakfast) Sodium Chlor 0.9% 1000 Ml Inj (Ns 1000 M (02/03/17 20:48) Sodium Chloride 0.9% Flush (Ns Flush) (02/03/17 21:00) Sodium Chloride 0.9% Flush (Ns Flush) (02/03/17 21:00) Ondansetron Inj (Zofran Inj) (02/03/17 21:00) Comprehensive Metabolic Panel (02/04/17 06:00) Complete Blood Count With Diff (02/04/17 06:00) Scd Bilateral/Knee High KASHIF.BID (02/03/17 20:48) Robert Bilateral/Knee High KASHIF.QSHIFT (02/03/17 21:00) Acetaminophen (Tylenol) (02/03/17 21:00) Docusate Sodium-Senna (Mirna-Colace) (02/03/17 21:00) Magnesium Hydroxide Liq (Milk Of Magnesi (02/03/17 21:00) Sennosides (Senokot) (02/03/17 21:00) Bisacodyl Supp (Dulcolax Supp) (02/03/17 21:00) Lactulose Liq (Lactulose Liq) (02/03/17 21:00) ^ Seizure Precautions (02/03/17 20:48) Admit Order (Ed Use Only) (02/03/17 20:52) Labs Laboratory Tests Test 02/03/17 19:14 02/03/17 19:40 02/03/17 19:45 White Blood Count 9.0 TH/MM3 Red Blood Count 4.65 MIL/MM3 Hemoglobin 14.8 GM/DL Hematocrit 42.3 % Mean Corpuscular Volume 91.0 FL Mean Corpuscular Hemoglobin 31.8 PG Mean Corpuscular Hemoglobin Concent 34.9 % Red Cell Distribution Width 13.3 % Platelet Count 288 TH/MM3 Mean Platelet Volume 8.1 FL Neutrophils (%) (Auto) 76.5 % Lymphocytes (%) (Auto) 15.2 % Monocytes (%) (Auto) 7.0 % Eosinophils (%) (Auto) 0.5 % Basophils (%) (Auto) 0.8 % Neutrophils # (Auto) 6.9 TH/MM3 Lymphocytes # (Auto) 1.4 TH/MM3 Monocytes # (Auto) 0.6 TH/MM3 Eosinophils # (Auto) 0.0 TH/MM3 Basophils # (Auto) 0.1 TH/MM3 CBC Comment DIFF FINAL Differential Comment Prothrombin Time 11.3 SEC Prothromb Time International Ratio 1.1 RATIO Activated Partial Thromboplast Time 28.7 SEC Blood Urea Nitrogen 13 MG/DL Creatinine 1.67 MG/DL Random Glucose 80 MG/DL Total Protein 7.2 GM/DL Albumin 3.4 GM/DL Calcium Level 7.8 MG/DL Alkaline Phosphatase 101 U/L Aspartate Amino Transf (AST/SGOT) 29 U/L Alanine Aminotransferase (ALT/SGPT) 19 U/L Total Bilirubin 0.5 MG/DL Sodium Level 141 MEQ/L Potassium Level 4.0 MEQ/L Chloride Level 108 MEQ/L Carbon Dioxide Level 24.7 MEQ/L Anion Gap 8 MEQ/L Estimat Glomerular Filtration Rate 48 ML/MIN Lactic Acid Level 2.2 mmol/L Salicylates Level LESS THAN 1.7 MG/DL Acetaminophen Level LESS THAN 2.0 MCG/ML Ethyl Alcohol Level LESS THAN 3 MG/DL Urine Opiates Screen NEG Urine Barbiturates Screen NEG Urine Amphetamines Screen NEG Urine Benzodiazepines Screen NEG Urine Cocaine Screen NEG Urine Cannabinoids Screen NEG Urine Color LIGHT-YELLOW Urine Turbidity CLEAR Urine pH 7.0 Urine Specific [place] 1.007 Urine Protein 30 mg/dL Urine Glucose (UA) NEG mg/dL Urine Ketones NEG mg/dL Urine Occult Blood SMALL Urine Nitrite NEG Urine Bilirubin NEG Urine Urobilinogen LESS THAN 2.0 MG/DL Urine Leukocyte Esterase NEG Urine RBC 3 /hpf Urine WBC LESS THAN 1 /hpf Microscopic Urinalysis Comment CULT NOT INDICATED MDM Medical Decision Making Medical Screen Exam Complete: Yes Emergency Medical Condition: Yes Medical Record Reviewed: Yes Differential Diagnosis Polysubstance abuse versus overdose versus sepsis Narrative Course 31-year-old male presents to the emergency Department under act. Patient is agitated on arrival. He is placed in restraints. He is given Ativan 2 mg IM, Haldol 5 mg IM. He states that he is 32 Coricidin's, 2 whip its , 2 dusters. He is also febrile on arrival. EKG, CBC, CMP, lactic acid, PTT, PT/INR, alcohol level, salicylate level, Tylenol level, UA, UDS are ordered and pending. Patient is given normal saline 1 L IV bolus. Blood cultures 2 are ordered and pending. Poison control will be contacted. Poison control instructed to watch for anticholinergic effects, dry mouth, fever, tachycardia, seizures, hypertension. The patient apparently told the nurse that he did this to try to kill himself and has suicidal thoughts. I went back in and questioned him again. Now he does state that he has suicidal thoughts, but he is clear if this was an attempt to hurt himself or not. Patient is placed under [place] act. EKG shows sinus tachycardia, heart rate 120. CBC .shows no acute abnormality. CMP shows creatinine 1.67. Lactic acid is 2.0. Coags are unremarkable. Alcohol level is less than 3. Salicylate level is less than 1.7. Tylenol level is less than 2.0. UA is negative for infection. UDS is pending. Patient has been violent restraints to [id number] exam completed at 1900. Patient demonstrates the need for violent restraints, demonstrating a risk of harming himself and others. Restraints are noted in place. Distal extremities remain neurovascularly intact. Dr. Khan accepted admission. Diagnosis Primary Impression: Overdose Qualified Codes: T50.904A - Poisoning by unspecified drugs, medicaments and biological substances, undetermined, initial encounter Additional Impressions: Polysubstance abuse Suicidal thoughts Admitting Information Admitting Physician Requests: Observation Lyssa Ramires Feb 03, 2017 19:12
[2017-02-03] MEDS ORDERED: SODIUM CHLORIDE 0.9% FLUSH 10 ML FLUSH IVF PRN (19:15)
[2017-02-03 19:38] LABS: AUTOMATED NEUTROPHIL # 6.9 TH/MM3 (1.8-7.7); BASOPHIL # 0.1 TH/MM3 (0-0.2); BASOPHIL % 0.8 % (0.0-2.0); EOSINOPHIL % 0.5 % (0.0-4.0); HEMATOCRIT 42.3 % (39.0-51.0); HEMO FLAGS DIFF FINAL; LYMPH % 15.2 % (9.0-44.0); LYMPHOCYTE # 1.4 TH/MM3 (1.0-4.8); MEAN CORPUSCULAR HEMOGLOBIN 31.8 PG (27.0-34.0); MEAN CORPUSCULAR HGB CONC 34.9 % (32.0-36.0); NEUT % 76.5 % (16.0-70.0); PLATELET COUNT 288 TH/MM3 (150-450); RED BLOOD COUNT 4.65 MIL/MM3 (4.50-5.90); RED CELL DISTRIBUTION WIDTH 13.3 % (11.6-17.2)
[2017-02-03 19:46] LABS: APTT (PATIENT) 28.7 SEC (24.3-30.1); INTERNATIONAL NORMALIZED RATIO 1.1 RATIO; PROTHROMBIN TIME - PATIENT 11.3 SEC (9.8-11.6)
[2017-02-03 20:09] LABS: ANION GAP 8 MEQ/L (5-15); AST (GOT) 29 U/L (15-37); BICARBONATE 24.7 MEQ/L (21.0-32.0); BLOOD UREA NITROGEN 13 MG/DL (7-18); CHLORIDE 108 MEQ/L (98-107); GLOMERULAR FILTRATION RATE 48 ML/MIN (>89); SODIUM (NA) 141 MEQ/L (136-145)
[2017-02-03 20:10] LABS: ALCOHOL LESS THAN 3 MG/DL (0-5); ALT (GPT) 19 U/L (12-78)
[2017-02-03 20:13] LABS: ALKALINE PHOSPHATASE 101 U/L (45-117); TOTAL BILIRUBIN ADULT 0.5 MG/DL (0.2-1.0)
[2017-02-03 20:14] VITALS: BP 143/86; PULSE 108; RESP 16; O2SAT 95
[2017-02-03 20:26] LABS: ACETAMINOPHEN LESS THAN 2.0 MCG/ML (10.0-30.0)
[2017-02-03 20:30] LABS: BLOOD, URINE SMALL (NEG); COMMENT (UR) CULT NOT INDICATED; CULTURE IF INDICATED CULT NOT INDICATED; GLUCOSE,URINE NEG (NEG); KETONE, URINE NEG (NEG); NITRITE,URINE NEG (NEG); URINE COLOR LIGHT-YELLOW (YELLW/STRAW)
[2017-02-03 20:46] VITALS: BP 150/88; PULSE 95; RESP 14; O2SAT 96
--- NOTE | 2017-02-03 20:56 | HHI.HP ---
[facility] Admission Diagnosis overdose, polysubstance use, suicidal thoughts Diagnoses: (1) Overdose Diagnosis: Principal (2) Suicide attempt Diagnosis: Principal (3) Fever Diagnosis: Principal (4) Renal insufficiency Diagnosis: Principal (5) Lactic acidosis Diagnosis: Principal Travel History International Travel<30 Days: No Contact w/Intl Traveler <30 Da: No Traveled to Known Affected Are: No History of Present Illness This is a 31-year-old male with a PMH of Anxiety, Depression, Alcohol Abuse, Tobacco Abuse and Drug Abuse well known to the ER for multiple presentations due to Drug Overdose who was brought to the ER by Police after being found lying in the street unresponsive. Upon arrival to ER pt combative/agitation, currently in violent restraints. Admits to taking 30 tablets of Coricidin, 2 Whip Its and 2 Dusters in an attempt to kill himself. Currently under [place] Act. On arrival, BP 153/79, HR 124, O2 sat 97% on RA, Temp 101.1. CBC essentially unremarkable. Creatinine 1.67, previously 1.40 on 01/25/17. Lactic Acid 2.2. INR 1.1. Urine Drug Screen negative. Alcohol negative. UA negative. S/p IVF in ER, repeat Lactic Acid pending. Review of Systems Except as stated in HPI: all other systems reviewed are Neg ROS: 14 point review of systems otherwise negative. Past Family Social History Past Medical History PMH: Anxiety, Depression, Alcohol Abuse, Tobacco Abuse and Drug Abuse Past Surgical History PAST SURGICAL HISTORY: Right Femur Surgery Allergies: Coded Allergies: bee venom protein (honey bee) (Verified Allergy, Unknown, SWOLLEN, 02/03/17 ) Family History PAST FAMILY HISTORY: Reviewed. No h/o DM or CAD Social History PAST SOCIAL HISTORY: Positive for alcohol. Smokes 1ppd. +Polysubstance Abuse- Whip its, Dusting, Meth, K2.... Physical Exam Vital Signs Vital Signs Date Time Temp Pulse Resp B/P (MAP) Pulse Ox O2 Delivery O2 Flow Rate FiO2 02/03/17 20:46 95 14 150/88 (108) 96 Room Air 02/03/17 20:14 108 16 143/86 (105) 95 Room Air 02/03/17 19:03 125 18 02/03/17 18:59 99.1 129 30 153/79 (103) 97 Room Air 02/03/17 18:46 101.1 124 18 153/79 (103) 97 Physical Exam PE: GENERAL: Middle-aged male in no acute distress, currently in restraints. HEENT: PERRLA, EOMI. No scleral icterus or conjunctival pallor. No lid lag or facial droop. CARDIOVASCULAR: Regular rate and rhythm. No obvious murmurs to auscultation. No chest tenderness to palpation. RESPIRATORY: No obvious rhonchi or wheezing. Clear to auscultation. Breath sounds equal bilaterally. GASTROINTESTINAL: Abdomen soft, non-tender, nondistended. BS normal. MUSCULOSKELETAL: Extremities without clubbing, cyanosis, or edema. No obvious deformities. NEUROLOGICAL: Awake, alert. No focal neurologic deficits. Moving both upper and lower extremities spontaneously. Laboratory Laboratory Tests Test 02/03/17 19:14 02/03/17 19:40 02/03/17 19:45 White Blood Count 9.0 Red Blood Count 4.65 Hemoglobin 14.8 Hematocrit 42.3 Mean Corpuscular Volume 91.0 Mean Corpuscular Hemoglobin 31.8 Mean Corpuscular Hemoglobin Concent 34.9 Red Cell Distribution Width 13.3 Platelet Count 288 Mean Platelet Volume 8.1 Neutrophils (%) (Auto) 76.5 Lymphocytes (%) (Auto) 15.2 Monocytes (%) (Auto) 7.0 Eosinophils (%) (Auto) 0.5 Basophils (%) (Auto) 0.8 Neutrophils # (Auto) 6.9 Lymphocytes # (Auto) 1.4 Monocytes # (Auto) 0.6 Eosinophils # (Auto) 0.0 Basophils # (Auto) 0.1 CBC Comment DIFF FINAL Differential Comment Prothrombin Time 11.3 Prothromb Time International Ratio 1.1 Activated Partial Thromboplast Time 28.7 Blood Urea Nitrogen 13 Creatinine 1.67 Random Glucose 80 Total Protein 7.2 Albumin 3.4 Calcium Level 7.8 Alkaline Phosphatase 101 Aspartate Amino Transf (AST/SGOT) 29 Alanine Aminotransferase (ALT/SGPT) 19 Total Bilirubin 0.5 Sodium Level 141 Potassium Level 4.0 Chloride Level 108 Carbon Dioxide Level 24.7 Anion Gap 8 Estimat Glomerular Filtration Rate 48 Lactic Acid Level 2.2 Salicylates Level LESS THAN 1.7 Acetaminophen Level LESS THAN 2.0 Ethyl Alcohol Level LESS THAN 3 Urine Opiates Screen NEG Urine Barbiturates Screen NEG Urine Amphetamines Screen NEG Urine Benzodiazepines Screen NEG Urine Cocaine Screen NEG Urine Cannabinoids Screen NEG Urine Color LIGHT-YELLOW Urine Turbidity CLEAR Urine pH 7.0 Urine Specific [place] 1.007 Urine Protein 30 Urine Glucose (UA) NEG Urine Ketones NEG Urine Occult Blood SMALL Urine Nitrite NEG Urine Bilirubin NEG Urine Urobilinogen LESS THAN 2.0 Urine Leukocyte Esterase NEG Urine RBC 3 Urine WBC LESS THAN 1 Microscopic Urinalysis Comment CULT NOT INDICATED Date/Time Source Procedure Growth Status 02/03/17 19:14 Blood Peripheral Aerobic Blood Culture Pending Received 02/03/17 19:14 Blood Peripheral Anaerobic Blood Culture Pending Received Result Diagram: 02/03/17191302/03/171913 Olive VTE Risk Assessment Caprini VTE Risk Assessment: No/Low Risk (score <= 1) Caprini Risk Assessment Model Point Value = 1 Point Value = 2 Point Value = 3 Point Value = 5 Age 41-60 Minor surgery BMI > 25 kg/m2 Swollen legs Varicose veins or History of unexplained or recurrent spontaneous Oral contraceptives or hormone replacement Sepsis (< 1 month) Serious lung disease, including pneumonia (< 1 month) Abnormal pulmonary function Acute myocardial infarction Congestive heart failure (< 1 month) History of inflammatory bowel disease Medical patient at bed rest Age 61-74 Arthroscopic surgery Major open surgery (> 45 min) Laparoscopic surgery (> 45 min) Malignancy Confined to bed (> 72 hours) Immobilizing plaster cast Central venous access Age >= 75 History of VTE Family history of VTE Factor V Leiden Prothrombin [id number] Lupus anticoagulant Anticardiolipin antibodies Elevated serum homocysteine Heparin-induced thrombocytopenia Other congenital or acquired thrombophilia Stroke (< 1 month) Elective arthroplasty Hip, pelvis, or leg fracture Acute spinal cord injury (< 1 month) Prophylaxis Regimen Total Risk Factor Score Risk Level Prophylaxis Regimen 0-1 Low Early ambulation 2 Moderate Order ONE of the following: *Sequential Compression Device (SCD) *Heparin 5000 units SQ BID 3-4 Higher Order ONE of the following medications: *Heparin 5000 units SQ TID *Enoxaparin/Lovenox 40 mg SQ daily (WT < 150 kg, CrCl > 30 mL/min) *Enoxaparin/Lovenox 30 mg SQ daily (WT < 150 kg, CrCl > 10-29 mL/min) *Enoxaparin/Lovenox 30 mg SQ BID (WT < 150 kg, CrCl > 30 mL/min) AND/OR *Sequential Compression Device (SCD) 5 or more Highest Order ONE of the following medications: *Heparin 5000 units SQ TID (Preferred with Epidurals) *Enoxaparin/Lovenox 40 mg SQ daily (WT < 150 kg, CrCl > 30 mL/min) *Enoxaparin/Lovenox 30 mg SQ daily (WT < 150 kg, CrCl > 10-29 mL/min) *Enoxaparin/Lovenox 30 mg SQ BID (WT < 150 kg, CrCl > 30 mL/min) AND *Sequential Compression Device (SCD) Assessment and Plan Problem List: (1) Overdose ICD Code: T50.901A - Poisoning by unspecified drugs, medicaments and biological substances, accidental (unintentional), initial encounter Status: Acute (2) Suicide attempt ICD Code: T14.91XA - Suicide attempt, initial encounter (3) Fever ICD Code: R50.9 - Fever, unspecified (4) Lactic acidosis ICD Code: E87.2 - Acidosis (5) Renal insufficiency ICD Code: N28.9 - Disorder of kidney and ureter, unspecified Assessment and Plan A/P: 1. Overdose: reports taking approx 30 tablets of Coricidin, 2 Whip its and Dusting in suicide attempt. Poison Control recommending admission for Observation and eval for possible seizure. Seizure Precautions. Telemetry. IVF for hydration. Urine Drug Screen negative, Alcohol negative. Ativan prn for agitation. No Haldol for risk of seizure. 2. Suicide Attempt: Pt admits to ingesting multiple substances in attempt to kill himself. Currently under [place] Act. Sitter. Consult Psych 3. Fever: Temp 101.1, likely related to drug ingestion, no evidence of sepsis. Will hold off on antibiotics at this time. Follow up Blood Cultures. IVF for hydration. 4. Renal Insufficiency: Creatinine 1.67, previously 1.40 on 01/25/17, 1.16 on 01/22/17. Secondary to drug use/dehydration. U/a negative. IVF, repeat labs in am. 5. Lactic Acidosis: Mild. Lactate 2.2, likely due to dehydration. Follow up repeat Lactic Acid. 6. DVT Prophylaxis: SCD/Teds. 7. Social work for d/c planning as needed. 8. Case discussed w/ ER physician at length. Problem Qualifiers (1) Overdose: Qualified Codes: T50.904A - Poisoning by unspecified drugs, medicaments and biological substances, undetermined, initial encounter Catherine Lopez MD Feb 03, 2017 20:56
[2017-02-03] MEDS ORDERED: SODIUM CHLORIDE 0.9% FLUSH 10 ML FLUSH IV FLUSH PRN (21:00)
[2017-02-03] MEDS ORDERED: MAGNESIUM HYDROXIDE SUSP 30 ML CUP PO PRN (21:00)
[2017-02-03] MEDS ORDERED: BISACODYL 10 MG SUPP RECTAL PRN (21:00)
[2017-02-03] MEDS ORDERED: LORazepam 2 MG/ML VIAL IV PUSH PRN (21:00)
[2017-02-03] MEDS ORDERED: ONDANSETRON HCL 4 MG/2 ML VIAL IVP PRN (21:00)
[2017-02-03] MEDS ORDERED: ACETAMINOPHEN 325 MG TAB PO PRN (21:00)
[2017-02-03] MEDS ORDERED: LACTULOSE SYRUP 20 GM/30 ML CUP PO PRN (21:00)
[2017-02-03] MEDS: SODIUM CHLORIDE 0.9% FLUSH 10 ML FLUSH IV FLUSH SCH (21:00)
[2017-02-03] MEDS ORDERED: DOCUSATE SODIUM 50 MG/SENNA 8.6 MG TAB PO SCH (21:00)
[2017-02-03] MEDS ORDERED: SENNOSIDES 8.6 MG TAB PO PRN (21:00)
[2017-02-03 21:28] LABS: LACTIC ACID GHOST NOT REPORTABLE
[2017-02-03] MEDS: SODIUM CHLOR 0.9% 1000 ML INJ 1,000 ML IV SCH (21:34)
[2017-02-03 21:37] VITALS: BP 145/88; PULSE 93; RESP 16; O2SAT 97
[2017-02-03 22:55] VITALS: BP 121/76; PULSE 79; RESP 16; TEMP 96.9; O2SAT 97
[2017-02-04] VITALS (9 sets, daily range): BP systolic 128–152; BP diastolic 80–97; PULSE 66–98; RESP 16–20; TEMP 96.9–98.2; O2SAT 94–97
[2017-02-04] MEDS: SODIUM CHLOR 0.9% 1000 ML INJ 1,000 ML IV SCH ×3 (03:07→17:00)
--- NOTE | 2017-02-04 10:46 | HHI.DCPOC ---
Discharge Care Plan Diagnosis: (1) Overdose (2) Polysubstance abuse Goals to Promote Your Health * To prevent worsening of your condition and complications * To maintain your health at the optimal level Directions to Meet Your Goals Take your medications as prescribed Follow your dietary instruction Follow activity as directed Keep your appointments as scheduled Take your immunizations and boosters as scheduled If your symptoms worsen call your PCP, if no PCP go to Urgent Care Center or Emergency Room Smoking is Dangerous to Your Health. Avoid second hand smoke Call the 24-hour hour crisis hotline for domestic abuse at Tish Leigh PA-C Feb 04, 2017 10:46
--- NOTE | 2017-02-04 11:35 | HHI.PR ---
Subjective Remarks Follow-up drug overdose 02/04/17-patient seen and examined, alert and oriented 3. Denies any acute event overnight. Currently denies any chest pain, shortness of breath, GI bleed. Tolerated by mouth without any completion of nausea and vomiting. patient denies any suicidal or homicidal ideations. Objective Vitals Vital Signs Date Time Temp Pulse Resp B/P (MAP) Pulse Ox O2 Delivery O2 Flow Rate FiO2 02/04/17 08:00 98.2 70 18 144/90 (108) 94 02/04/17 06:05 68 02/04/17 04:00 97.4 69 17 140/97 (111) 94 02/04/17 02:04 87 02/04/17 01:20 96.9 98 16 128/80 (96) 96 02/03/17 22:55 96.9 79 16 121/76 (91) 97 02/03/17 21:58 02/03/17 21:37 93 16 145/88 (107) 97 Room Air 02/03/17 20:46 95 14 150/88 (108) 96 Room Air 02/03/17 20:14 108 16 143/86 (105) 95 Room Air 02/03/17 19:03 125 18 02/03/17 18:59 99.1 129 30 153/79 (103) 97 Room Air 02/03/17 18:46 101.1 124 18 153/79 (103) 97 I/O 02/03/17 02/03/17 02/03/17 02/04/17 02/04/17 02/04/17 07:00 15:00 23:00 07:00 15:00 23:00 Intake Total 1000 ml 1000 ml Output Total 600 ml Balance 400 ml 1000 ml Intake Oral 1000 ml IV Total 1000 ml Output Urine Total 600 ml # Voids 1 5 Result Diagram: 02/03/17191302/03/171913 Objective Remarks GENERAL: NAD SKIN: Warm and dry. HEAD: Normocephalic. EYES: No scleral icterus. No injection or drainage. NECK: Supple, trachea midline. No JVD or lymphadenopathy. CARDIOVASCULAR: Regular rate and rhythm without murmurs, gallops, or rubs. RESPIRATORY: Breath sounds equal bilaterally. No accessory muscle use. GASTROINTESTINAL: Abdomen soft, non-tender, nondistended. MUSCULOSKELETAL: No cyanosis, or edema. BACK: Nontender without obvious deformity. No CVA tenderness. A/P Problem List: (1) Overdose ICD Code: T50.901A - Poisoning by unspecified drugs, medicaments and biological substances, accidental (unintentional), initial encounter Status: Acute (2) Suicide attempt ICD Code: T14.91XA - Suicide attempt, initial encounter (3) Fever ICD Code: R50.9 - Fever, unspecified (4) Lactic acidosis ICD Code: E87.2 - Acidosis (5) Renal insufficiency ICD Code: N28.9 - Disorder of kidney and ureter, unspecified Assessment and Plan 31-year-old man with 1. Overdose: reports taking approx 30 tablets of Coricidin, 2 Whip its and Dusting in suicide attempt. Poison Control recommended admission for Observation and eval for possible seizure. Seizure Precautions. Telemetry. d/ c IVF for hydration. Urine Drug Screen negative, Alcohol negative. Ativan prn for agitation. No Haldol for risk of seizure. 2. Suicide Attempt: Pt admits to ingesting multiple substances in attempt to kill himself. Currently under [place] Act. Sitter. Psych auscultation pending 3. Fever: Resolved 4. Renal Insufficiency: Creatinine 1.67, previously 1.40 on 01/25/17, 1.16 on 01/22/17. Secondary to drug use/dehydration. U/a negative. 5. Lactic Acidosis: Resolved with IV fluid hydration 6. DVT Prophylaxis: SCD/Teds. Patient is medically clear for discharge to inpatient psychiatry pending evaluation from psychiatrist Discharge Planning Discharge patient to inpatient psychiatry Condition on discharge: Improved Regular Diet as tolerated Ad Lore activity Rx written: Follow-up with primary care physician in one week Problem Qualifiers (1) Overdose: Qualified Codes: T50.904A - Poisoning by unspecified drugs, medicaments and biological substances, undetermined, initial encounter Arnold Leahy MD Feb 04, 2017 11:35
[2017-02-04 14:39] LABS: AUTOMATED NEUTROPHIL # 4.4 TH/MM3 (1.8-7.7); BASOPHIL # 0.1 TH/MM3 (0-0.2); BASOPHIL % 0.9 % (0.0-2.0); EOSINOPHIL # 0.3 TH/MM3 (0-0.4); EOSINOPHIL % 4.5 % (0.0-4.0); HEMATOCRIT 41.7 % (39.0-51.0); HEMO FLAGS DIFF FINAL; LYMPH % 27.3 % (9.0-44.0); MEAN CELL VOLUME 92.3 FL (80.0-100.0); MEAN CORPUSCULAR HEMOGLOBIN 30.6 PG (27.0-34.0); MEAN CORPUSCULAR HGB CONC 33.2 % (32.0-36.0); MONO % 7.7 % (0.0-8.0); NEUT % 59.6 % (16.0-70.0); PLATELET COUNT 225 TH/MM3 (150-450); RED BLOOD COUNT 4.52 MIL/MM3 (4.50-5.90); RED CELL DISTRIBUTION WIDTH 13.8 % (11.6-17.2); WHITE BLOOD COUNT 7.4 TH/MM3 (4.0-11.0)
[2017-02-04 14:45] LABS: ALT (GPT) 19 U/L (12-78); ANION GAP 2 MEQ/L (5-15); AST (GOT) 21 U/L (15-37); BICARBONATE 29.6 MEQ/L (21.0-32.0); BLOOD UREA NITROGEN 10 MG/DL (7-18); CHLORIDE 108 MEQ/L (98-107); GLOMERULAR FILTRATION RATE 89 ML/MIN (>89); POTASSIUM 4.3 MEQ/L (3.5-5.1); SODIUM (NA) 140 MEQ/L (136-145)
[2017-02-04 14:50] LABS: ALKALINE PHOSPHATASE 83 U/L (45-117); TOTAL BILIRUBIN ADULT 0.3 MG/DL (0.2-1.0)
[2017-02-04] MEDS: SODIUM CHLORIDE 0.9% FLUSH 10 ML FLUSH IV FLUSH SCH (15:17)
--- NOTE | 2017-02-04 16:04 | PD ---
History of Present Illness Chief Complaint: Alcohol/Drug Intoxication Time Seen by Provider: 16:00 Travel History International Travel<30 Days: No Contact w/Intl Traveler<30days: No Known affected area: No Legal Status Legal Status: Vang Act History of Present Illness: Patient well known to the ED staff as a result of his polysubstance abuse. He is no longer intoxicated at this time. He denies any suicidal or homicidal ideation, plan or intent. Cognition is intact and he has no psychotic symptoms. He is verbally luis for safety and he is competent to do so. He wants this physician to arrange for a ride home and states the buses are not running on Sunday. This physician informed the patient that due to his substance abuse issues, this physician will not be providing transportation to the patient. It is deemed counter therapeutic to continue to enable the patient 's behavior. PFSH Past Medical History Medical History: Unable to Obtain Hx Anticoagulant Therapy: No ADHD: Yes Arthritis: No Autoimmune Disease: No Bipolar Disorder: Yes Anxiety: Yes Depression: Yes Heart Rhythm Problems: No Cancer: No Cardiovascular Problems: Yes (HTN) High Cholesterol: No Chemotherapy: No Chest Pain: No Congestive Heart Failure: No Cerebrovascular Accident: No Diabetes: No Diminished Hearing: No Genitourinary: No Headaches: No Hypertension: Yes Implanted Vascular Access Dvce: Yes (INFUSAPORT RT CHEST/LT HAND OSTEOMYL) Musculoskeletal: Yes Neurologic: No Psychiatric: Yes Reproductive: No Respiratory: No Migraines: No Seizures: Yes (skull FX age 3) Past Surgical History Surgical History: Unable to Obtain Abdominal Surgery: No Cardiac Surgery: No Ear Surgery: No Endocrine Surgery: No Eye Surgery: No Genitourinary Surgery: No Gynecologic Surgery: No Hysterectomy: No Joint Replacement: Yes (RT FEMUR) Neurologic Surgery: No Oral Surgery: No Thoracic Surgery: No Other Surgery: Yes (pins in right femur ) Psychiatric History Psychiatric History Hx Psychiatric Treatment: HX OF ADMISSION AT [facility]. Has outpatietn tretametn at [facility]. History of Inpatient Treatment: Yes Guns or firearms in home: No Social History Hx Alcohol Use: Yes Hx Tobacco Use: Yes (one pack per day) Hx Substance Use: Yes (Huffing,Dust, Meth, TRIP-C) Substance Use Type: Crack, Heroin, Huffing Other Substances Used: HAS A HISTORY OF SUBSTANCE ABUSE Hx of Substance Use Treatment: Yes Allergies-Medications (Allergen,Severity, Reaction): Coded Allergies: bee venom protein (honey bee) (Verified Allergy, Unknown, SWOLLEN, 02/03/17 ) Reported Meds & Prescriptions Reported Meds & Active Scripts Active Reported Depakote DR (Divalproex Sodium) 500 Mg Tabdr 500 Mg PO BID Seroquel (Quetiapine Fumarate) 100 Mg Tab 100 Mg PO DAILY Latuda (Lurasidone) 20 Mg Tab 20 Mg PO DAILY Review of Systems Except as stated in HPI: all other systems reviewed are Neg Mental Status Examination Appearance: Disheveled Consciousness: Alert Orientation: x4 Motor Activity: Normal gait Speech: Unremarkable Language: Adequate Fund of Knowledge: Adequate Attention and Concentration: Adequate Memory: Unremarkable Mood: Appropriate Affect: Appropriate Thought Process & Associations: Intact Thought Content: Appropriate Hallucination Type: None Delusion Type: None Suicidal Ideation: No Suicidal Plan: No Suicidal Intention: No Homicidal Ideation: No Homicidal Plan: No Homicidal Intention: No Insight: Adequate Judgment: Adequate MDM Medical Decision Making Medical Record Reviewed: Yes Assessment/Plan Patient interviewed at bedside. Medical record reviewed. Case discussed with patient's ED nurse. Patient does not meet criteria for Vang act or involuntary psychiatric hospitalization. This physician suggested the patient return to [facility] but the patient is not interested in that. Orders Orders Lorazepam Inj (Ativan Inj) (02/03/17 19:00) Haloperidol Inj (Haldol Inj) (02/03/17 19:00) Electrocardiogram (02/03/17 19:01) Complete Blood Count With Diff (02/03/17 19:01) Comprehensive Metabolic Panel (02/03/17 19:01) Prothrombin Time / Inr (Pt) (02/03/17 19:01) Act Partial Throm Time (Ptt) (02/03/17 19:01) Urinalysis - C+S If Indicated (02/03/17 19:01) Iv Access Insert/Monitor (02/03/17 19:01) Ecg Monitoring (02/03/17 19:01) Oximetry (02/03/17 19:01) Sodium Chloride 0.9% Flush (Ns Flush) (02/03/17 19:15) Sodium Chlor 0.9% 1000 Ml Inj (Ns 1000 M (02/03/17 19:01) Call Poison Control (02/03/17 19:01) Drug Screen, Random Urine (02/03/17 19:01) Alcohol (Ethanol) (02/03/17 19:01) Salicylates (Aspirin) (02/03/17 19:01) Tylenol (Acetaminophen) (02/03/17 19:01) Blood Culture (02/03/17 19:02) Lactic Acid Sepsis Protocol (02/03/17 19:02) Restraints Violent (02/03/17 19:12) Cath For Specimen (02/03/17:19) Lorazepam Inj (Ativan Inj) (02/03/17 21:00) Consult Psychiatry (02/03/17 ) Place In Observation (02/03/17 ) Vital Signs (Adult) Q4H (02/03/17 20:48) Neuro Checks Q4H (02/03/17 20:48) Activity Oob With Assistance (02/03/17 20:48) Intake + Output KASHIF.QSHIFT (02/03/17 20:48) Diet Regular Basic (02/04/17 Breakfast) Sodium Chlor 0.9% 1000 Ml Inj (Ns 1000 M (02/03/17 21:00) Sodium Chloride 0.9% Flush (Ns Flush) (02/03/17 21:00) Sodium Chloride 0.9% Flush (Ns Flush) (02/03/17 21:00) Ondansetron Inj (Zofran Inj) (02/03/17 21:00) Comprehensive Metabolic Panel (02/04/17 06:00) Complete Blood Count With Diff (02/04/17 06:00) Scd Bilateral/Knee High KASHIF.BID (02/03/17 20:48) Robert Bilateral/Knee High KASHIF.QSHIFT (02/03/17 21:00) Acetaminophen (Tylenol) (02/03/17 21:00) Docusate Sodium-Senna (Mirna-Colace) (02/03/17 21:00) Magnesium Hydroxide Liq (Milk Of Magnesi (02/03/17 21:00) Sennosides (Senokot) (02/03/17 21:00) Bisacodyl Supp (Dulcolax Supp) (02/03/17 21:00) Lactulose Liq (Lactulose Liq) (02/03/17 21:00) ^ Seizure Precautions (02/03/17 20:48) Admit Order (Ed Use Only) (02/03/17 20:52) ^ Sitter (02/03/17 20:56) Restraints Non-Violent KASHIF.Q3H (02/03/17 21:31) (Hub Use Only)Inp Phy Cons/Ref (02/03/17 ) Physician Name Changes (02/04/17 ) Remove Cardiac Telemetry (02/04/17 09:07) Attending Discharge Order (02/04/17 ) Results Vital Signs Date Time Temp Pulse Resp B/P (MAP) Pulse Ox O2 Delivery O2 Flow Rate FiO2 02/04/17 15:10 98.1 87 20 152/97 (115) 97 02/04/17 12:05 98.2 88 18 131/80 (97) 97 02/04/17 08:00 98.2 70 18 144/90 (108) 94 02/04/17 06:05 68 02/04/17 04:00 97.4 69 17 140/97 (111) 94 02/04/17 02:04 87 02/04/17 01:20 96.9 98 16 128/80 (96) 96 02/03/17 22:55 96.9 79 16 121/76 (91) 97 02/03/17 21:58 02/03/17 21:37 93 16 145/88 (107) 97 Room Air 02/03/17 20:46 95 14 150/88 (108) 96 Room Air 02/03/17 20:14 108 16 143/86 (105) 95 Room Air 02/03/17 19:03 125 18 02/03/17 18:59 99.1 129 30 153/79 (103) 97 Room Air 02/03/17 18:46 101.1 124 18 153/79 (103) 97 Laboratory Tests Test 02/03/17 19:14 02/03/17 19:40 02/03/17 19:45 02/03/17 23:00 White Blood Count 9.0 Red Blood Count 4.65 Hemoglobin 14.8 Hematocrit 42.3 Mean Corpuscular Volume 91.0 Mean Corpuscular Hemoglobin 31.8 Mean Corpuscular Hemoglobin Concent 34.9 Red Cell Distribution Width 13.3 Platelet Count 288 Mean Platelet Volume 8.1 Neutrophils (%) (Auto) 76.5 Lymphocytes (%) (Auto) 15.2 Monocytes (%) (Auto) 7.0 Eosinophils (%) (Auto) 0.5 Basophils (%) (Auto) 0.8 Neutrophils # (Auto) 6.9 Lymphocytes # (Auto) 1.4 Monocytes # (Auto) 0.6 Eosinophils # (Auto) 0.0 Basophils # (Auto) 0.1 CBC Comment DIFF FINAL Differential Comment Prothrombin Time 11.3 Prothromb Time International Ratio 1.1 Activated Partial Thromboplast Time 28.7 Blood Urea Nitrogen 13 Creatinine 1.67 Random Glucose 80 Total Protein 7.2 Albumin 3.4 Calcium Level 7.8 Alkaline Phosphatase 101 Aspartate Amino Transf (AST/SGOT) 29 Alanine Aminotransferase (ALT/SGPT) 19 Total Bilirubin 0.5 Sodium Level 141 Potassium Level 4.0 Chloride Level 108 Carbon Dioxide Level 24.7 Anion Gap 8 Estimat Glomerular Filtration Rate 48 Lactic Acid Level 2.2 0.5 Salicylates Level LESS THAN 1.7 Acetaminophen Level LESS THAN 2.0 Ethyl Alcohol Level LESS THAN 3 Urine Opiates Screen NEG Urine Barbiturates Screen NEG Urine Amphetamines Screen NEG Urine Benzodiazepines Screen NEG Urine Cocaine Screen NEG Urine Cannabinoids Screen NEG Urine Color LIGHT-YELLOW Urine Turbidity CLEAR Urine pH 7.0 Urine Specific Boone 1.007 Urine Protein 30 Urine Glucose (UA) NEG Urine Ketones NEG Urine Occult Blood SMALL Urine Nitrite NEG Urine Bilirubin NEG Urine Urobilinogen LESS THAN 2.0 Urine Leukocyte Esterase NEG Urine RBC 3 Urine WBC LESS THAN 1 Microscopic Urinalysis Comment CULT NOT INDICATED Test 02/04/17 13:55 White Blood Count 7.4 Red Blood Count 4.52 Hemoglobin 13.8 Hematocrit 41.7 Mean Corpuscular Volume 92.3 Mean Corpuscular Hemoglobin 30.6 Mean Corpuscular Hemoglobin Concent 33.2 Red Cell Distribution Width 13.8 Platelet Count 225 Mean Platelet Volume 8.3 Neutrophils (%) (Auto) 59.6 Lymphocytes (%) (Auto) 27.3 Monocytes (%) (Auto) 7.7 Eosinophils (%) (Auto) 4.5 Basophils (%) (Auto) 0.9 Neutrophils # (Auto) 4.4 Lymphocytes # (Auto) 2.0 Monocytes # (Auto) 0.6 Eosinophils # (Auto) 0.3 Basophils # (Auto) 0.1 CBC Comment DIFF FINAL Differential Comment Blood Urea Nitrogen 10 Creatinine 0.98 Random Glucose 130 Total Protein 5.9 Albumin 2.8 Calcium Level 8.0 Alkaline Phosphatase 83 Aspartate Amino Transf (AST/SGOT) 21 Alanine Aminotransferase (ALT/SGPT) 19 Total Bilirubin 0.3 Sodium Level 140 Potassium Level 4.3 Chloride Level 108 Carbon Dioxide Level 29.6 Anion Gap 2 Estimat Glomerular Filtration Rate 89 Date/Time Source Procedure Growth Status 02/03/17 19:14 Blood Peripheral Aerobic Blood Culture - Preliminary NO GROWTH IN 1 DAY Resulted 02/03/17 19:14 Blood Peripheral Anaerobic Blood Culture - Preliminary NO GROWTH IN 1 DAY Resulted Diagnosis Primary Impression: Polysubstance abuse Arturo Blank MD Feb 04, 2017 16:04
--- NOTE | 2017-02-04 16:36 | HHI.PR ---
Addendum Remarks 1630hrs: The patient was seen by psychiatry and cleared for discharge. Per psychiatrist, he does not meet criteria for Vang Act. Renal function has returned to normal. He is medically stable for discharge. Consult case management for discharge planning as the patient is requesting assistance with a ride. Referral to [facility] will be given. Discharge patient to home Condition on discharge: Improved Regular Diet as tolerated Ad Lore activity Rx written: no new meds Follow-up with primary care physician and drug rehab at [facility] Tish Leigh PA-C Feb 04, 2017 16:36
--- NOTE | 2017-02-04 22:35 | EKG ---
Date Performed: 02/03/2017 Time Performed: 19:03:26 PTAGE: 31 years EKG: SINUS TACHYCARDIA ABNORMAL RHYTHM ECG NO PREVIOUS TRACING DOCTOR: Yang Javier Interpretating Date/Time 02/04/2017 22:34:56
--- NOTE | 2017-02-09 09:39 | PD.PSY.CON ---
Provisional Diagnosis Admission Date Feb 03, 2017 at 20:54 [place]. Late entry for February 04 2017. Diagnosis polysubstance abuse. History of Present Illness Service Psychiatry Consult Requested By Attending physician Reason for Consult Possible suicidality. Primary Care Physician Unknown HPI Patient known to psychiatry. History of polysubstance abuse. Patient denies any suicidal or homicidal ideation, plan or intent. No psychotic symptoms. Cognition intact. Patient verbally luis for safety and is competent to do so. Patient explains he was attempting to get high and denies trying to kill himself on this occasion. Review of Systems Except as stated in HPI: all other systems reviewed are Neg Past Family Social History Coded Allergies: bee venom protein (honey bee) (Verified Allergy, Unknown, SWOLLEN, 02/03/17 ) Reported Medications Divalproex DR (Depakote DR) 500 Mg Tabdr, 500 MG PO BID for Control Seizures, # 60 TAB 0 Refills 01/13/17 Quetiapine (Seroquel) 100 Mg Tab, 100 MG PO DAILY, #30 TAB 0 Refills 01/13/17 Lurasidone (Latuda) 20 Mg Tab, 20 MG PO DAILY, #30 TAB 0 Refills 12/24/16 Family Psych History Positive for mood disorders. Patient states it's positive for drug abuse 2. Social History Patient not consistently employed. Has been abusing drugs for a number of years. Patient not interested in detox or rehabilitation at this time. He has minimal family support. He has minimal financial resources. Patient's Strengths (min. 2) Verbal and resilient. Physical Exam Lab Results Date/Time Source Procedure Growth Status 02/03/17 19:14 Blood Peripheral Aerobic Blood Culture - Final NO GROWTH IN 5 DAYS Complete 02/03/17 19:14 Blood Peripheral Anaerobic Blood Culture - Final NO GROWTH IN 5 DAYS Complete Mental Status Examination Appearance: Disheveled Consciousness: Alert Orientation: x4 Motor Activity: Normal gait Speech: Unremarkable Language: Adequate Fund of Knowledge: Adequate Attention and Concentration: Adequate Memory: Unremarkable Mood: Appropriate Affect: Appropriate Thought Process & Associations: Intact Thought Content: Appropriate Hallucination Type: None Delusion Type: None Suicidal Ideation: No Suicidal Plan: No Suicidal Intention: No Homicidal Ideation: No Homicidal Plan: No Homicidal Intention: No Insight: Adequate Judgment: Adequate Assessment & Plan Problem List: (1) Polysubstance abuse ICD Codes: F19.10 - Other psychoactive substance abuse, uncomplicated Assessment & Plan Estimated LOS: days. Patient interviewed at bedside. Medical record reviewed. Case discussed with nurse. Patient does not currently meet criteria for Vang act or involuntary psychiatric hospitalization. Patient was referred to [facility] but is not interested in going therefore any further treatment. He would like to leave the hospital and this physician has nothing further to offer. Arturo Blank MD Feb 09, 2017 09:39
== END 2017-02-04 20:51 | disposition home or self-care (01) ==
LOC: NEPC 18:41 → NEDA 20:54 → NEPFCDU 21:54
PROVIDERS: ADMIT Hospitalist; ATTEND Hospitalist
DX: T50.902A Poisoning by unspecified drugs, medicaments and biological substances, intentional self-harm, initial encounter (principal); R45.851 Suicidal ideations; R50.9 Fever, unspecified; E87.2 Acidosis; N28.9 Disorder of kidney and ureter, unspecified; R45.1 Restlessness and agitation; E86.0 Dehydration; R00.0 Tachycardia, unspecified; I10 Essential (primary) hypertension; F31.9 Bipolar disorder, unspecified; F41.9 Anxiety disorder, unspecified; F19.10 Other psychoactive substance abuse, uncomplicated; F17.200 Nicotine dependence, unspecified, uncomplicated; Z78.1 Physical restraint status; Z79.899 Other long term (current) drug therapy
CPT/HCPCS: 80053; 80307; 81001; 83605; 85025; 85610; 85730; 87040; 93005; 96361; 96374; 96375; 99285; G0378; J1630; J2060; J7030

== ENCOUNTER 2017-02-22 20:38 | Emergency (ER) | payer OTHER ==
[2017-02-22 20:53] VITALS: BP 142/93; PULSE 90; RESP 18; TEMP 98.2; O2SAT 99
[2017-02-22] MEDS ORDERED: WELL200T PO (20:53)
--- NOTE | 2017-02-22 20:57 | PD ---
HPI Chief Complaint: Bernstein's act Time Seen by Provider: 20:52 Travel History International Travel<30 days: No Contact w/Intl Traveler<30days: No History of Present Illness HPI Patient is a 31-year-old male who is brought to the emergency room under Bernstein' s act. Patient was found intoxicated at a gas station today, reports that he was unable to ambulate due to his intoxication. Patient was brought to the emergency room due to his inability to ambulate and his profound intoxication. Patient currently with no suicidal or homicidal thoughts, patient reports that he drank "too much today." PFSH Past Medical History Hx Anticoagulant Therapy: No ADHD: Yes Arthritis: No Autoimmune Disease: No Bipolar Disorder: Yes Anxiety: Yes Depression: Yes Heart Rhythm Problems: No Cancer: No Cardiovascular Problems: Yes (HTN) High Cholesterol: No Chemotherapy: No Chest Pain: No Congestive Heart Failure: No Cerebrovascular Accident: No Diabetes: No Diminished Hearing: No Genitourinary: No Headaches: No Hypertension: Yes Implanted Vascular Access Dvce: Yes (INFUSAPORT RT CHEST/LT HAND OSTEOMYL) Musculoskeletal: Yes Neurologic: No Psychiatric: Yes Reproductive: No Respiratory: No Migraines: No Seizures: Yes (skull FX age 3) Past Surgical History Abdominal Surgery: No Cardiac Surgery: No Ear Surgery: No Endocrine Surgery: No Eye Surgery: No Genitourinary Surgery: No Gynecologic Surgery: No Hysterectomy: No Joint Replacement: Yes (RT FEMUR) Neurologic Surgery: No Oral Surgery: No Thoracic Surgery: No Other Surgery: Yes (pins in right femur ) Social History Alcohol Use: Yes Tobacco Use: Yes (one pack per day) Substance Use: Yes (Huffing,Dust, Meth, TRIP-C) Allergies-Medications (Allergen,Severity, Reaction): Coded Allergies: bee venom protein (honey bee) (Verified Allergy, Unknown, SWOLLEN, ) Reported Meds & Prescriptions Reported Meds & Active Scripts Active Reported Wellbutrin SR 12 HR (Bupropion HCl) 200 Mg Tab 200 Mg PO Q12HR Depakote DR (Divalproex Sodium) 500 Mg Tabdr 500 Mg PO BID Latuda (Lurasidone) 20 Mg Tab 20 Mg PO DAILY Review of Systems General / Constitutional: No: Fever Eyes: No: Visual changes HENT: No: Headaches Cardiovascular: No: Chest Pain or Discomfort Respiratory: No: Shortness of Breath Gastrointestinal: No: Abdominal Pain Genitourinary: No: Dysuria Musculoskeletal: No: Pain Skin: No Rash Neurologic: No: Weakness Psychiatric: Positive: Substance Abuse (alcohol abuse), No: Depression, Suicidal Ideations, Homicidal Ideation Endocrine: No: Polydipsia Hematologic/Lymphatic: No: Easy Bruising Physical Exam Narrative GENERAL: NAD SKIN: Focused skin assessment warm/dry. HEAD: Atraumatic. Normocephalic. EYES: Pupils equal and round. No scleral icterus. No injection or drainage. ENT: No nasal bleeding or discharge. Mucous membranes pink and moist. NECK: Trachea midline. No JVD. CARDIOVASCULAR: Regular rate and rhythm. No murmur appreciated. RESPIRATORY: No accessory muscle use. Clear to auscultation. Breath sounds equal bilaterally. GASTROINTESTINAL: Abdomen soft, non-tender, nondistended. Hepatic and splenic margins not palpable. MUSCULOSKELETAL: No obvious deformities. No clubbing. No cyanosis. No edema. NEUROLOGICAL: Awake and alert. PSYCHIATRIC: Agitated mood and affect; patient is grossly intoxicated Data Data Orders Orders Ed Discharge Order (02/23/17 03:01) [facility] Medical Decision Making Medical Screen Exam Complete: Yes Emergency Medical Condition: Yes Medical Record Reviewed: Yes Differential Diagnosis Alcohol intoxication, drug abuse Narrative Course During the course of the patients emergency department visit, the patients history, examination, and differential diagnosis were reviewed with the patient. The patient was placed on a panel monitor with oximetry and frequent blood pressure monitoring. Patient at this time denies suicidal or homicidal thoughts. Patient here as he is intoxicated on alcohol. Patient is alert and oriented x 3 with no other c/ o. Plan to monitor patient at this time. Diagnosis Primary Impression: Alcohol intoxication Qualified Codes: F10.920 - Alcohol use, unspecified with intoxication, uncomplicated Additional Instructions: Please drink alcohol responsibility Please follow-up with your primary care doctor Return to the emergency room as needed Nelli Adams DO Feb 22, 2017 20:57
== END 2017-02-23 06:09 | disposition home or self-care (01) ==
LOC: NEPD 20:38
DX: F10.129 Alcohol abuse with intoxication, unspecified (principal); F90.9 Attention-deficit hyperactivity disorder, unspecified type; F31.9 Bipolar disorder, unspecified; F41.9 Anxiety disorder, unspecified; I10 Essential (primary) hypertension; R56.9 Unspecified convulsions; F17.200 Nicotine dependence, unspecified, uncomplicated; Z79.899 Other long term (current) drug therapy
CPT/HCPCS: 99282

== ENCOUNTER 2017-05-30 18:37 | Emergency (ER) | payer OTHER ==
[~2017-05-30 18:37] MED LIST changes: -SERO100T PO; +WELL200T PO
[2017-05-30 18:44] VITALS: BP 141/88; PULSE 82; RESP 16; TEMP 98.2; O2SAT 94
[2017-05-30] MEDS ORDERED: diphenhydrAMINE HCL 50 MG/ML VIAL IM ONE (22:45)
[2017-05-30] MEDS ORDERED: LORazepam 2 MG/ML VIAL IM ONE (22:45)
[2017-05-30] MEDS ORDERED: HALOPERIDOL LACTATE 5 MG/ML AMP IM ONE (22:45)
--- NOTE | 2017-05-30 22:47 | PD ---
HPI Chief Complaint: Alcohol/Drug Intoxication Time Seen by Provider: 22:39 Travel History International Travel<30 days: No Contact w/Intl Traveler<30days: No Traveled to known affect area: No History of Present Illness HPI 31-year-old male presents to the ED under Bernstein's act. On arrival the patient is sitting calmly on the ambulance haul. He suddenly began to become very agitated, threw his chair, was threatening nurses and security staff in the area. He was transported to the [facility] pod where he became violent, punching the wall, striking the wall with his head. I attempted to communicate with the patient. He was cursing and uncooperative. Benadryl, Haldol, Ativan and violent restraints were ordered. Patient admits to drinking alcohol today. Patient was moved to the [facility] pod. PFSH Past Medical History Hx Anticoagulant Therapy: No ADHD: Yes Arthritis: No Autoimmune Disease: No Bipolar Disorder: Yes Anxiety: Yes Depression: Yes Heart Rhythm Problems: No Cancer: No Cardiovascular Problems: Yes (HTN) High Cholesterol: No Chemotherapy: No Chest Pain: No Congestive Heart Failure: No Cerebrovascular Accident: No Diabetes: No Diminished Hearing: No Genitourinary: No Headaches: No Hypertension: Yes Implanted Vascular Access Dvce: Yes (INFUSAPORT RT CHEST) Musculoskeletal: Yes Neurologic: No Psychiatric: Yes Reproductive: No Respiratory: No Migraines: No Seizures: Yes (skull FX age 3) Past Surgical History Abdominal Surgery: No Cardiac Surgery: No Ear Surgery: No Endocrine Surgery: No Eye Surgery: No Genitourinary Surgery: No Gynecologic Surgery: No Hysterectomy: No Joint Replacement: Yes (RT FEMUR) Neurologic Surgery: No Oral Surgery: No Thoracic Surgery: No Other Surgery: Yes (pins in right femur ) Social History Alcohol Use: Yes (RARELY ) Tobacco Use: Yes (1 PPD) Substance Use: Yes (METH) Allergies-Medications (Allergen,Severity, Reaction): Coded Allergies: bee venom protein (honey bee) (Verified Allergy, Unknown, SWOLLEN, 05/30/17 ) Reported Meds & Prescriptions Reported Meds & Active Scripts Active Reported Wellbutrin SR 12 HR (Bupropion HCl) 200 Mg Tab 200 Mg PO Q12HR Depakote DR (Divalproex Sodium) 500 Mg Tabdr 500 Mg PO BID Latuda (Lurasidone) 20 Mg Tab 20 Mg PO DAILY Review of Systems Except as stated in HPI: all other systems reviewed are Neg Physical Exam Exam Limitations: Intoxication, Uncooperative, Combative Narrative GENERAL: Well-nourished, well-developed white male SKIN: Focused skin assessment warm/dry. Multiple tattoos noted. HEAD: Normocephalic. Multiple old scars without signs of infection. EYES: No scleral icterus. No injection or drainage. CARDIOVASCULAR: Regular rate and rhythm without murmurs, gallops, or rubs. RESPIRATORY: Breath sounds equal bilaterally. No accessory muscle use. GASTROINTESTINAL: Abdomen soft, non-tender, nondistended. MUSCULOSKELETAL: Moving all extremities, flailing about the room, throwing chairs. BACK: No obvious deformity. Data Data Last Documented VS Vital Signs Date Time Temp Pulse Resp B/P (MAP) Pulse Ox O2 Delivery O2 Flow Rate FiO2 05/30/17 23:05 83 149/99 (116) 99 Room Air 05/30/17 18:44 98.2 16 Orders Orders Lorazepam Inj (Ativan Inj) (05/30/17 22:45) Haloperidol Inj (Haldol Inj) (05/30/17 22:45) Diphenhydramine Inj (Benadryl Inj) (05/30/17 22:45) Restraints Violent (05/30/17 22:37) MDM Medical Decision Making Medical Screen Exam Complete: Yes Emergency Medical Condition: Yes Differential Diagnosis Adjustment disorder versus anxiety versus bipolar versus depression versus dementia versus electrolyte disorder versus malingering versus mood disorder versus ODD versus psychosis versus PTSD versus schizophrenia versus schizoaffective disorder versus substance-induced mood disorder versus other Narrative Course 31-year-old male presents to the ED under Bernstein's act. On arrival the patient is sitting calmly on the ambulance haul. He suddenly began to become very agitated, threw his chair, was threatening nurses and security staff in the area. He was transported to the [facility] pod where he became violent, punching the wall, striking the wall with his head. I attempted to communicate with the patient. He was cursing and uncooperative. Benadryl, Haldol, Ativan and violent restraints were ordered. Patient admits to drinking alcohol today. Patient was moved to a medical pod. Please see oncoming provider's note for disposition. Mary Ann Rubio May 30, 2017 22:47
[2017-05-30 23:05] VITALS: BP 149/99; PULSE 83; O2SAT 99
[2017-05-31] MEDS ORDERED: LORazepam 2 MG/ML VIAL IV PUSH ONE (02:15)
[2017-05-31] MEDS ORDERED: SODIUM CHLOR 0.9% 1000 ML INJ 1,000 ML IV ONE (02:15)
[2017-05-31 02:21] VITALS: BP 151/85; PULSE 65; RESP 18; O2SAT 99
--- NOTE | 2017-05-31 02:54 | PD ---
Data Data Last Documented VS Vital Signs Date Time Temp Pulse Resp B/P (MAP) Pulse Ox O2 Delivery O2 Flow Rate FiO2 05/31/17 02:21 65 18 151/85 (107) 99 Room Air 05/30/17 18:44 98.2 Orders Orders Lorazepam Inj (Ativan Inj) (05/30/17 22:45) Haloperidol Inj (Haldol Inj) (05/30/17 22:45) Diphenhydramine Inj (Benadryl Inj) (05/30/17 22:45) Restraints Violent (05/30/17 22:37) Complete Blood Count With Diff (05/31/17 02:07) Comprehensive Metabolic Panel (05/31/17 02:07) Lorazepam Inj (Ativan Inj) (05/31/17 02:15) Drug Screen, Random Urine (05/31/17 02:07) Alcohol (Ethanol) (05/31/17 02:07) Salicylates (Aspirin) (05/31/17 02:07) Tylenol (Acetaminophen) (05/31/17 02:07) Sodium Chlor 0.9% 1000 Ml Inj (Ns 1000 M (05/31/17 02:15) Labs Laboratory Tests Test 05/31/17 02:31 White Blood Count 9.4 TH/MM3 Red Blood Count 4.88 MIL/MM3 Hemoglobin 14.8 GM/DL Hematocrit 43.8 % Mean Corpuscular Volume 89.7 FL Mean Corpuscular Hemoglobin 30.4 PG Mean Corpuscular Hemoglobin Concent 33.9 % Red Cell Distribution Width 14.0 % Platelet Count 248 TH/MM3 Mean Platelet Volume 8.1 FL Neutrophils (%) (Auto) 54.7 % Lymphocytes (%) (Auto) 29.6 % Monocytes (%) (Auto) 8.0 % Eosinophils (%) (Auto) 6.7 % Basophils (%) (Auto) 1.0 % Neutrophils # (Auto) 5.1 TH/MM3 Lymphocytes # (Auto) 2.8 TH/MM3 Monocytes # (Auto) 0.8 TH/MM3 Eosinophils # (Auto) 0.6 TH/MM3 Basophils # (Auto) 0.1 TH/MM3 CBC Comment DIFF FINAL Differential Comment Blood Urea Nitrogen 12 MG/DL Creatinine 1.25 MG/DL Random Glucose 70 MG/DL Total Protein 6.7 GM/DL Albumin 3.4 GM/DL Calcium Level 8.2 MG/DL Alkaline Phosphatase 91 U/L Aspartate Amino Transf (AST/SGOT) 51 U/L Alanine Aminotransferase (ALT/SGPT) 32 U/L Total Bilirubin 1.1 MG/DL Sodium Level 142 MEQ/L Potassium Level 3.8 MEQ/L Chloride Level 108 MEQ/L Carbon Dioxide Level 30.9 MEQ/L Anion Gap 3 MEQ/L Estimat Glomerular Filtration Rate 67 ML/MIN Salicylates Level LESS THAN 1.7 MG/DL Acetaminophen Level LESS THAN 2.0 MCG/ML Ethyl Alcohol Level 23 MG/DL [facility] Medical Record Reviewed: Yes Supervised Visit with TAYLOR: Yes Narrative Course I, Dr. Segovia, have reviewed the advance practice practitioner's documentation and am in agreement, met with the patient face to face, made the diagnosis, and the medical decision making was done by me. *My assessment and Findings: The patient has been resting comfortably in the delta part for about 3 hours. Blood work added on along with a tox screen. CBC & BMP Diagram 05/31/17 02:31 Total Protein 6.7, Albumin 3.4, Calcium Level 8.2 L, Alkaline Phosphatase 91, Aspartate Amino Transf (AST/SGOT) 51 H, Alanine Aminotransferase (ALT/SGPT) 32, Total Bilirubin 1.1 H Tylenol and salicylates are undetectable Alcohol is less than 50 The patient will sleep it off here until he is clinically sober, able to ambulate independently and has a ride home. Diagnosis Primary Impression: Alcohol abuse Additional Impression: Agitation Naldo Segovia MD May 31, 2017 02:54
[2017-05-31 02:55] LABS: AUTOMATED NEUTROPHIL # 5.1 TH/MM3 (1.8-7.7); BASOPHIL # 0.1 TH/MM3 (0-0.2); EOSINOPHIL # 0.6 TH/MM3 (0-0.4); EOSINOPHIL % 6.7 % (0.0-4.0); HEMATOCRIT 43.8 % (39.0-51.0); HEMOGLOBIN 14.8 GM/DL (13.0-17.0); LYMPH % 29.6 % (9.0-44.0); LYMPHOCYTE # 2.8 TH/MM3 (1.0-4.8); MEAN CELL VOLUME 89.7 FL (80.0-100.0); MEAN CORPUSCULAR HEMOGLOBIN 30.4 PG (27.0-34.0); MEAN CORPUSCULAR HGB CONC 33.9 % (32.0-36.0); MEAN PLATELET VOLUME 8.1 FL (7.0-11.0); MONOCYTE # 0.8 TH/MM3 (0-0.9); NEUT % 54.7 % (16.0-70.0); PLATELET COUNT 248 TH/MM3 (150-450); RED BLOOD COUNT 4.88 MIL/MM3 (4.50-5.90); WHITE BLOOD COUNT 9.4 TH/MM3 (4.0-11.0)
[2017-05-31 03:01] LABS: ACETAMINOPHEN LESS THAN 2.0 MCG/ML (10.0-30.0); ALBUMIN 3.4 GM/DL (3.4-5.0); ALT (GPT) 32 U/L (12-78); AST (GOT) 51 U/L (15-37); BICARBONATE 30.9 MEQ/L (21.0-32.0); BLOOD UREA NITROGEN 12 MG/DL (7-18); CALCIUM 8.2 MG/DL (8.5-10.1); CHLORIDE 108 MEQ/L (98-107); CREATININE 1.25 MG/DL (0.60-1.30); GLOMERULAR FILTRATION RATE 67 ML/MIN (>89); GLUCOSE,RANDOM 70 MG/DL (74-106); SODIUM (NA) 142 MEQ/L (136-145)
[2017-05-31 03:03] LABS: ALKALINE PHOSPHATASE 91 U/L (45-117); TOTAL BILIRUBIN ADULT 1.1 MG/DL (0.2-1.0); TOTAL PROTEIN 6.7 GM/DL (6.4-8.2)
[2017-05-31 07:21] VITALS: BP 162/94; PULSE 71; RESP 15; O2SAT 97
[2017-05-31 11:31] VITALS: BP 144/79; PULSE 74; RESP 18; O2SAT 99
--- NOTE | 2017-05-31 11:39 | PD ---
Physical Exam Date Seen by Provider: May 31, 2017 Time Seen by Provider: 11:35 Narrative 31-year-old male previously admitted for severe alcoholic intoxication is now alert and oriented and hungry. Patient is given some food, and deemed medically stable for discharge. Recommend follow-up with Pawel Arriaza. Data Data Last Documented VS Vital Signs Date Time Temp Pulse Resp B/P (MAP) Pulse Ox O2 Delivery O2 Flow Rate FiO2 05/31/17 11:31 74 18 144/79 (100) 99 05/31/17 07:21 Room Air 05/30/17 18:44 98.2 Orders Orders Lorazepam Inj (Ativan Inj) (05/30/17 22:45) Haloperidol Inj (Haldol Inj) (05/30/17 22:45) Diphenhydramine Inj (Benadryl Inj) (05/30/17 22:45) Restraints Violent (05/30/17 22:37) Complete Blood Count With Diff (05/31/17 02:07) Comprehensive Metabolic Panel (05/31/17 02:07) Lorazepam Inj (Ativan Inj) (05/31/17 02:15) Drug Screen, Random Urine (05/31/17 02:07) Alcohol (Ethanol) (05/31/17 02:07) Salicylates (Aspirin) (05/31/17 02:07) Tylenol (Acetaminophen) (05/31/17 02:07) Sodium Chlor 0.9% 1000 Ml Inj (Ns 1000 M (05/31/17 02:15) Labs Laboratory Tests Test 05/31/17 02:31 White Blood Count 9.4 TH/MM3 Red Blood Count 4.88 MIL/MM3 Hemoglobin 14.8 GM/DL Hematocrit 43.8 % Mean Corpuscular Volume 89.7 FL Mean Corpuscular Hemoglobin 30.4 PG Mean Corpuscular Hemoglobin Concent 33.9 % Red Cell Distribution Width 14.0 % Platelet Count 248 TH/MM3 Mean Platelet Volume 8.1 FL Neutrophils (%) (Auto) 54.7 % Lymphocytes (%) (Auto) 29.6 % Monocytes (%) (Auto) 8.0 % Eosinophils (%) (Auto) 6.7 % Basophils (%) (Auto) 1.0 % Neutrophils # (Auto) 5.1 TH/MM3 Lymphocytes # (Auto) 2.8 TH/MM3 Monocytes # (Auto) 0.8 TH/MM3 Eosinophils # (Auto) 0.6 TH/MM3 Basophils # (Auto) 0.1 TH/MM3 CBC Comment DIFF FINAL Differential Comment Blood Urea Nitrogen 12 MG/DL Creatinine 1.25 MG/DL Random Glucose 70 MG/DL Total Protein 6.7 GM/DL Albumin 3.4 GM/DL Calcium Level 8.2 MG/DL Alkaline Phosphatase 91 U/L Aspartate Amino Transf (AST/SGOT) 51 U/L Alanine Aminotransferase (ALT/SGPT) 32 U/L Total Bilirubin 1.1 MG/DL Sodium Level 142 MEQ/L Potassium Level 3.8 MEQ/L Chloride Level 108 MEQ/L Carbon Dioxide Level 30.9 MEQ/L Anion Gap 3 MEQ/L Estimat Glomerular Filtration Rate 67 ML/MIN Salicylates Level LESS THAN 1.7 MG/DL Acetaminophen Level LESS THAN 2.0 MCG/ML Ethyl Alcohol Level 23 MG/DL [facility] Medical Record Reviewed: Yes Supervised Visit with TAYLOR: Yes Narrative Course 31-year-old male previously admitted for severe alcoholic intoxication is now alert and oriented and hungry. Patient is given some food, and deemed medically stable for discharge. Recommend follow-up with Pawel Arriaza. Diagnosis Primary Impression: Alcohol abuse Additional Impression: Agitation Referrals: [facility] Patient Instructions: Abuse of Alcohol (ED), General Instructions Med/Other Pt SpecificInfo: No Meds Exist/No RX given Disposition: 01 DISCHARGE HOME Condition: Stable Jesu Oh May 31, 2017 11:39
== END 2017-05-31 12:06 | disposition home or self-care (01) ==
LOC: NEDAMB 18:37 → NEPD 05-31 12:06
DX: F10.10 Alcohol abuse, uncomplicated (principal); F15.10 Other stimulant abuse, uncomplicated; R45.1 Restlessness and agitation; F17.200 Nicotine dependence, unspecified, uncomplicated; F31.9 Bipolar disorder, unspecified; Y90.1 Blood alcohol level of 20-39 mg/100 ml; Z79.899 Other long term (current) drug therapy
CPT/HCPCS: 80053; 80307; 85025; 96361; 96372; 96374; 99285; J1200; J1630; J2060; J7030